=== PATIENT | female | born 1950 | race Caucasian/White ===

== ENCOUNTER 2021-02-08 01:44 | Emergency (ER) | payer OTHER ==
--- OUTSIDE RECORDS SUMMARY | 2021-02-08 01:47 | XMS REPORT | Continuity of Care Document ---
:1950 Author Organization [facility] t Address [address] [place] [address] Care Team Providers Name Role Phone Sanford Foster MD Primary Care Physician [phone] Cj Tenorio Attending Clinician Sanford Foster MD Attending Clinician [phone] Cuate SAUCEDA, L Attending Clinician Farnaz SAUCEDA Attending Clinician Payers Payer Name Policy Type Policy Effective Date Expiration Date Sour ce Number UHC MEDICAREUHC [id number] 2020 [place] TRS/HEALTHSELECT 00:00:00 Methodis t [id number] 2020-Present Problems Condition Condition Condition Status Onset Resolution Last Treating Co mments Source Name Details Category Date Date Treatment Clinician Date Abnormal Abnormal Disease Active [place] finding of finding of 10-05 Me thodi trunk trunk 00:00: st 00 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-05 Me thodi 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 00:00: st polyneurop polyneurop 00 athy athy Internal Internal Disease Active [place] hemorrhoid hemorrhoid 10-05 Me thodi s s 00:00: st 00 Rectal Rectal Disease Active [place] prolapse prolapse 10-05 Method i 00:00: st 00 Herniation Herniation Disease Active [place] of rectum of rectum 10-05 Meth selvin into into 00:00: st vagina vagina 00 Urgent Urgent Disease Active [place] desire for desire for 10-05 Me thodi stool stool 00:00: st 00 Postop Postop Disease Active [place] check check 10-05 Methodi 00:00: st 00 Bipolar I Problem Active 2021-01-10 Me moria disorder 01:02:30 l (disorder) Bipolar Her art I disorder (disorder) Active Problem 01/10/2021 [facility] Gastroesop Problem Active 2021-01-10 M emoria hageal 01:02:30 l reflux Nicholas disease Gastroesop (disorder) hageal reflux disease (disorder) Active Problem 01/10/2021 [facility] Hypothyroi Problem Active 2021-01-10 M emoria dism 01:02:30 l (disorder) [place] Hypothyroi dism (disorder) Active Problem 01/10/2021 [facility] Tremor Problem Active 2021-01-10 Memor ia (finding) 01:02:30 l Tremor Nicholas (finding) Active Problem 01/10/2021 [facility] Allergic Problem Resolve 2021-01-10 Me moria reaction d 01:02:30 l (disorder) Allergic He rmann reaction (disorder) Resolved Problem 01/10/2021 [facility] Backache Problem Active 2021-01-10 Mem oria (finding) 01:02:30 l Backache [place] n (finding) Active Problem 01/10/2021 [facility] Allergies, Adverse Reactions, Alerts Allergy Allergy Status Severity Reaction(s) Onset Inactive Treating Comm ents Source Name Type Date Date Clinician Georgette Bailey Active Causes [place] ne ty to 10-05 lethargy Methodi adverse 00:00: st reaction 00 s to drug gabapent gabapent Active Memori a in in l [place] Valium Valium Active Memoria l Nicholas Demerol Demerol Active Memoria l [place] Robituss Adverse Active cannot [facility] Reaction urinate [facility] Demerol Adverse Active sick, won't [facility] Reaction wake up [facility] Aleve Adverse Active GI Distress [facility] Reaction [facility] Advil Adverse Active GI Distress [facility] Reaction [facility] Lyrica Adverse Active severe [facility] Reaction sleepiness [facility] gabapent Adverse Active hallucinatio C [facility] ion Reaction ns [facility] Valium Adverse Active Info Not [facility] Reaction Available [facility] Family History Family Member Diagnosis Comments Start Date Stop Date Source Natural mother Heart attack [place]ondo[place] Natural mother Heart disease [place] Cheondoism Natural sister Lung cancer [facility] ethodist Natural brother Colon cancer [place] Natural father Anuerysm [facility] thodist Natural father Diabetes [facility]odist Natural father Heart disease [facility] Social History Social Habit Start Date Stop Date Quantity Comments Source Tobacco use and 2019-07-22 2019-07-22 Never used [facility] ethodist exposure 00:00:00 00:00:00 Alcohol intake 2019-07-22 2019-07-22 Current [facility] thodist 00:00:00 00:00:00 non-drinker of alcohol (finding) Sex Ass[birth year] [facility] ethodist 00:00:00 00:00:00 Smoking Status Start Date Stop Date Source Never smoker [facility] Medications Ordered Filled Start Stop Current Ordering Indication Dosage Frequency Signature Comments Components Source Medication Medication Date Date Medication? Clinician (SIG) Name Name tramadol Yes 0 Memoria hydrochlori 6-24 Refill(s) l de 50 MG 14:52: [place]ita Oral Tablet 00 escitalopra Yes 0 Memori a m 10 mg 6-24 Refill(s) l oral tablet 14:28: [place] 00 Trazodone Yes 0 Memoria Hydrochlori 6-24 Refill(s) l de 50 MG 14:28: Nicholas Oral Tablet 00 OLANZapine Yes 0 Memoria 7.5 mg oral 6-24 Refill(s) l tablet 14:28: [place]ita 00 Sodium Yes 0 Memoria Fluoride 6-24 Refill(s) l 0.011 MG/MG 14:28: [place] Toothpaste 00 [Prevident] 24 HR Yes 50 mg = 1 Memoria mirabegron 6-24 tab, PO, l 50 MG 14:28: Daily, # [place] Extended 00 30 tab, 0 Release Refill(s) Tablet [Myrbetriq] levothyroxi Yes 0 Memori a ne 50 mcg 6-24 Refill(s) l (0.05 mg) 14:28: [place] oral tablet 00 Famotidine Yes 0 Memoria 40 MG Oral 6-24 Refill(s) l Tablet 14:28: Anita 00 24 HR Yes 0 Memoria Divalproex 6-24 Refill(s) l Sodium 250 14:28: Anita MG Extended 00 Release Tablet Myrbetriq Yes Urge TAKE 1 [place] 50 mg 5-20 incontinenc TABLET BY [place] thodi tablet 00:00: e MOUTH st extended 00 DAILY release 24 hr mirabegron 2019- No Urge 50mg QD Take 1 [place] (MYRBETRIQ) 3-05 05-20 incontinenc tablet (50 Methodi 50 mg 00:00: 00:00 e mg total) st tablet 00 :00 by mouth extended daily. release 24 hr aspirin 2019-0 Yes 81mg QD Take 81 mg [place] (ECOTRIN) 06 by mouth Method i 81 MG 10:24: daily. st enteric 21 coated tablet OLANZapine 0 Yes 10mg QD Take 10 mg [place] (ZYPREXA) 06 by mouth Method i 10 MG 10:24: nightly. st tablet 21 benztropine 2020-0 Yes QD daily. [place] (COGENTIN) 07-22 Methodi 1 MG tablet 10:23: st 30 divalproex 2020-0 Yes QD nightly. Margaritamarta vegan (DEPAKOTE) 07-22 Methodi 250 MG 24 10:23: st hr tablet 30 fluticasone 2019-0 Yes 2{spray QD 2 sprays [place]on (FLONASE) 07-22 } into each Metho di 50 10:19: nostril st mcg/actuati 05 daily. on nasal spray ARIPiprazol 2019-0 Yes 1{tbl} QD Take 1 Ho ivette e (ABILIFY) 1 tablet by Met hodi 5 MG tablet 10:19: mouth st 05 daily. dexlansopra 2020-0 Yes 1{capsu QD Take 1 [place] zole 1-06 le} capsule by Methodi (DEXILANT) 10:19: mouth st 60 mg 05 daily. capsule escitalopra 2020-0 Yes 1{tbl} QD Take 1 [place] m (LEXAPRO) 1-06 tablet by Met hodi 20 MG 10:19: mouth st tablet 05 daily. levothyroxi 2020-0 Yes 1{tbl} QD Take 1 [place] ne 1-06 tablet by Methodi (SYNTHROID, 10:19: mouth st LEVOTHROID) 05 daily. 88 MCG tablet lithium 300 2020-0 Yes 2{capsu QD Take 2 [place] MG capsule 1-06 le} capsules Metho di 10:19: by mouth st 05 daily. traZODone 2020-0 Yes 1{tbl} QD Take 1 [place] (DESYREL) 1-06 tablet by Metho di 50 MG 10:19: mouth st tablet 05 daily. estradiol 2019-0 Yes Vaginal Apply 0.5 Jarquin (ESTRACE) 1-06 atrophy gram to Meth selvin 0.01 % (0.1 00:00: outer st mg/gram) 00 vagina vaginal three cream times/week at night omeprazole 2017-07 Yes Q.5D 2 (two) [place] (PriLOSEC) 2-26 times a Method i 40 MG 00:00: day. st capsule 00 Trazodone Trazodone 2016-0 Yes Stephani [address] [facility] HCl HCl 5-18 [place] at bedtime [facility] 00[facility]: as needed Memoria 00 [facility] ent Clinics cycloSPORIN 2015-07 Yes Q.5D 2 (two) Margarita ston E 1-28 times a Methodi (RESTASIS) 00:00: day. st 0.05 % 00 ophthalmic emulsion Olanzapine Olanzapine Yes Stephani [address] [facility] [place] [facility] Clinics Vital Signs Vital Name Observation Time Observation Value Comments Source Systolic (mm Hg) 2021-01-07 14:14:00 Elio Peterson Diastolic (mm Hg) 2021-01-07 14:14:00 [facility] jaciel Peterson Heart Rate 2021-01-07 14:14:00 [facility] Respitory Rate 2021-01-07 14:14:00 Viktoriya Argueta Height 2021-01-07 14:14:00 154.94 cm [facility] Weight 2021-01-07 14:14:00 [facility] BMI Calculated 2021-01-07 14:14:00 Viktoriya galeano Anita Procedures Procedure Date / Time Performed Performing Clinician Sourc e Spinal cord [facility] stimulation<sup>1</sup> Hysterectomy [facility] Tubal ligation [facility] Plan of Care Planned Activity Planned Date Details Comments Source Future Scheduled 2021-02-14 INFLUENZA VACCINE [facility] [facility] Test 00:00:00 [code = INFLUENZA VACCINE] Future Scheduled 2014 65+ PNEUMOCOCCAL Jarquin [facility]ism Test 00:00:00 VACCINE (1 of 1 - PPSV23) [code = 65+ PNEUMOCOCCAL VACCINE (1 of 1 - PPSV23)] Future Scheduled 1999-09-25 BREAST CANCER Jarquin [place] [facility]odist Test 00:00:00 SCREENING [code = BREAST CANCER SCREENING] Future Scheduled 1999-09-25 COLONOSCOPY SCREENING [place] Test 00:00:00 [code = COLONOSCOPY SCREENING] Future Scheduled 1999-09-25 SHINGLES VACCINES (#1) [place] Test 00:00:00 [code = SHINGLES VACCINES (#1)] Future Scheduled 1967-09-25 Hepatitis C screening [place] Test 00:00:00 (procedure) [code = 526156496] Future Scheduled 1961 COVID-19 VACCINE (1) Margarita ston [facility]ondoism Test 00:00:00 [code = COVID-19 VACCINE (1)] Encounters Start End Encounter Admission Attending Care Care Encounter Source Date/Time Date/Time Type Type Clinicians Facility Department ID 2021-01-26 2021-01-26 Outpatient [facility] [id number] 00:00:00 00[facility]00[facility] 2021-01-25 2021-01-25 Outpatient [facility] [id number] [facility] 00:00:00 00[facility]00[facility] 2021-01-07 2021-01-07 Outpatient STEVE Tenorio [facility] [place] [id number] 09:30:00 23:59:59 Brigido Corona 2020-12-03 2020-12-03 Outpatient [facility] [id number] [facility] 2020-12-02 2020-12-02 Out[facility] [id number] [facility] 2020-12-02 2020-12-02 Out[facility] [id number] [facility] 2020-10-12 2020-10-12 Outpatient [facility] [id number] [facility] 2020-07-21 2020-07-21 [facility] [place], [facility] [id number] 00:00:00 00:00:00 [facility] [id number] Surgical [id number] [facility]ly [facility] [id number] [address] 2020-06-18 2020-06-18 Outpatient [facility] [id number] [facility] 2020-05-29 2020-05-29 Office Yoon Osei [facility] [id number] 13:53:33 14:23:33 Visit Health [id number] Cancer [id number] [facility] [id number] [facility] 408 2020-05-01 2020-05-01 Outpatient [facility] [id number] [facility] 2020-03-30 2020-03-30 [facility] [id number] [facility] 13:06:00 13:06:00 [facility] Medicine l Medicine Outpati ent Clinics 2020-03-30 2020-03-30 [facility] [id number] 10:00:00 10:00:00 [facility] Medicine l Medicine Outpati ent Clinics 2020-03-25 2020-03-25 [facility] [id number] 10:00:00 10:00:[address] [facility] Medicine Medicine Outpati ent Clinics 2020-02-26 2020-02-26 [facility] [id number] 09:40:00 09:40:00 t [facility] Medicine Outpati ent Clinics 2020-02-20 2020-02-20 [facility] [id number] 08:40:00 08:40:[address] [facility] Medicine l Medicine Outpati ent Clinics 2020-01-16 2020-01-16 [facility] [id number] 16:20:00 16:20:00 [facility] Medicine Outpati ent Clinics 2019-12-23 2019-12-23 [facility] [id number] 14:03:00 14:03:[address] [facility] Medicine l Medicine Outpati ent Clinics 2019-11-20 2019-11-20 [facility] [id number] 10[facility]40:00 10:40:00 t [facility] Medicine Outpati ent Clinics 2019-04-12 2019-04-12 [facility] [id number] 08:40:00 08:40:[address] [facility] Medicine Medicine Outpati ent Clinics 2019-04-01 2019-04-01 [facility] [id number] 13:13:00 13:13:[address] [facility] Medicine l Medicine Outpati ent Clinics 2019-03-27 2019-03-27 [facility] [id number] [facility] 16:30:00 16:30:00 t [facility] Medicine Outpati ent Clinics 2019-03-19 2019-03-19 [facility] [id number] 13:35:00 13:35:00 t [facility] Medicine Outpati ent Clinics 2019-03-15 2019-03-15 [facility] [id number] 16[facility]10:00 16:10:00 t [facility] Medicine Outpati ent Clinics 2019-03-11 2019-03-11 [facility] [id number] 08[facility]23:00 08:23:00 t [facility] Medicine Outpati ent Clinics 2019-01-31 2019-01-31 [facility] [id number] 15:49:00 15:49:00 t [facility] Medicine Outpati ent Clinics 2019-01-30 2019-01-30 [facility] [id number] 08:40:00 08:40:00 t [facility] Medicine Outpati ent Clinics 2019-01-14 2019-01-14 [facility] [id number] 08:40:00 08:40:00 t [facility] Medicine Outpati ent Clinics 2018-11-20 2018-11-20 [facility] [id number] 13:30:00 13:30:00 t [facility] Medicine Outpati ent Clinics 2018-08-27 2018-08-27 [facility] [id number] 09:30:00 09:30:00 t [facility] Medicine Outpati ent Clinics 2018-04-23 2018-04-23 [facility] [id number] 08:30:00 08:30:00 t [facility] Medicine Outpati ent Clinics 2018-04-10 2018-04-10 [facility] [id number] 11:30:00 11:30:00 t [facility] Medicine Outpati ent Clinics 2018-04-02 2018-04-02 [facility] [id number] [facility] [facility] 14:12:00 14:12:00 t [facility] Medicine Outpati ent Clinics 2018-04-02 2018-04-02 Outpatient Preeti Thornton [id number] 10:55:00 10:55:00 t Specialty/[facility] - Specialty rology [facility] /Urology Clinic l Clinic Outpati ent Clinics 2018-03-30 2018-03-30 Outpatient Preeti Thornton [id number] 16:34:00 16:34:00 t Specialty/U [facility] - Specialty rology Memori a /Urology Clinic l Clinic Outpati ent Clinics 2018-03-29 2018-03-29 Outpatient Preeti Thornton [id number] [facility] 14:40:00 14:40:00 t [facility] Medicine Outpati ent Clinics 2017-12-14 2017-12-14 Outpatient Preeti Thornton [id number] 10:00:00 10:00:00 [facility] Clinic l Outpati ent Clinics Results This patient has no known results.
[2021-02-08 03:48] LABS: Urine Blood Negative (Negative); Urine Glucose Negative (Negative); Urine Protein Negative (Negative); Urine pH 5.5 (5.0-7.0)
[2021-02-08 04:06] LABS: Protime INR 0.89
[2021-02-08 04:12] LABS: Absolute Lymphocytes (CBC) 3.1 K/uL (0.7-4.9); Basophils % 0.1 % (0-1.3); Hematocrit 37.8 % (36.0-45.0); Lymphocytes % 41.1 % (15.3-44.8); MPV 8.8 fL (7.6-11.3)
[2021-02-08 04:19] LABS: ALT/SGPT 25 U/L (12-78); AST/SGOT 21 U/L (15-37); Albumin 3.6 g/dL (3.4-5.0); Alkaline Phosphatase 91 U/L (45-117); BUN Blood Urea Nitrogen 30 mg/dL (7-18); Bicarbonate 27 mmol/L (21-32); Bilirubin Direct < 0.1 mg/dL (0-0.2); Bilirubin Total 0.2 mg/dL (0.2-1.0); Glucose Level 90 mg/dL (74-106); Lipase 99 U/L (73-393); Magnesium 2.1 mg/dL (1.8-2.4); NT PRO-BNP 83 pg/mL (<125); Potassium 3.8 mmol/L (3.5-5.1); Protein, Total 7.3 g/dL (6.4-8.2); Sodium Level 142 mmol/L (136-145); Troponin (Emerg Dept Use Only) < 0.02 ng/mL (0.0-0.045)
[2021-02-08] MEDS ORDERED: NA CHLORIDE 0.9% 1,000 ML ONE (05:10)
--- NOTE | 2021-02-08 08:45 | RAD REPORT ---
EXAM DESCRIPTION: RAD - Chest Single View - 02/08/2021 2:36 am CLINICAL HISTORY: CHEST PAIN Chest pain. COMPARISON: Chest Pa And Lat (2 Views) dated 11/07/2017; Chest Single View dated 01/06/2017; CHEST SIN GLE VIEW dated 09/17/2011; CHEST SINGLE VIEW dated 04/26/2011 FINDINGS: Portable technique limits examination quality. The lungs are mildly emphysematous but grossly clear. The heart is normal in size. No displaced fract ures.Cervical hardware plate. IMPRESSION: Mild diffuse COPD.
--- NOTE | 2021-02-08 09:59 | RAD REPORT ---
EXAM DESCRIPTION: CTA Chest, Pulmonary Embolus Protocol COMPARISON: None. CLINICAL HISTORY: [facility] MAIN Pain;SOB TECHNIQUE: CT images through the chest with IV contrast using the pulmonary embolus protocol. Multip lanar reformats. Automated exposure control was utilized on this examination as a dose lowering liset hnique. FINDINGS: Pulmonary arteries and vascular: Diagnostic quality bolus. No filling defects. Heart and mediastinum: Heart size is normal. No lymphadenopathy. Thyroid gland: Visualized portions are normal. Lungs: Right lower lobe atelectasis is noted. Airways: No filling defects. No bronchiectasis. Pleura: No pneumothorax. No significant pleural effusion. Subphrenic structures: There is diffuse esophageal wall thickening. Musculoskeletal and soft tissues: Within normal limits for age. IMPRESSION: 1. No evidence of pulmonary embolus 2. Diffuse esophageal wall thickening is consistent with esophagitis and less likely neoplasm. Electronically signed by: Douglas Odonnell MD 02/08/2021 5:59 AM CDT Due to temporary technical issues with the PACS/Fluency reporting system, reports are being signed by the in house radiologist without review as a courtesy to ensure prompt reporting. The interpreting r adiologist is fully responsible for the content of the report.
--- NOTE | 2021-02-08 10:01 | RAD REPORT ---
EXAM DESCRIPTION: CT Abdomen and Pelvis With Intravenous Contrast CLINICAL HISTORY: Abd pain;Flank pain TECHNIQUE: Axial computed tomography images of the abdomen and pelvis with intravenous contrast. S agittal and coronal reformatted images were created and reviewed. This CT exam was performed using one or more of the following dose reduction techniques: automated exposure control, adjustment of t he mA and/or kV according to patient size, and/or use of iterative reconstruction technique. COMPARISON: No relevant prior studies available. FINDINGS: Limitations: None. Lung bases: No abnormality noted. Pleural space: No abnormality noted. Heart: No abnormality noted. Mediastinum: There is circumferential distal esophageal thickening. ABDOMEN: Liver: Trace intrahepatic biliary dilatation noted. Gallbladder and bile ducts: See above. Pancreas: Homogeneous enhancement. No mass, inflammation or ductal dilation. Spleen: No abnormality noted. Adrenals: Visualized portions appear normal. Kidneys and ureters: There are multiple hypodense nodules in each kidney there is a single indet erminate approximate 8 mm bilateral hypodensity. Stomach and bowel: Moderate amounts of stool throughout the colon. No obstruction or inflammat ion. There is a small transverse duodenal diverticulum. PELVIS: Appendix: Appendix not seen. No pericecal inflammation. Bladder: No filling defects to suggest mass or large stone. No inflammation. Reproductive: Hysterectomy. ABDOMEN and PELVIS: Intraperitoneal space: No free air. No significant fluid collection. Bones/joints: Degenerative changes present in the lumbar spine. Soft tissues: No abnormality noted. Vasculature: No abdominal aortic aneurysm. Lymph nodes: No pathologically enlarged lymph nodes. IMPRESSION: 1. The distal esophageal thickening most concerning for esophagitis. 2. Moderate to large amounts of stool throughout the colon without obstruction or inflammation. 3. Indeterminant hypodense nodules in each kidney presumably hyperdense cysts. Nonemergent renal sonography recommended to confirm. Electronically signed by: Gina Pulido MD 02/08/2021 5:47 AM CDT Due to temporary technical issues with the PACS/Fluency reporting system, reports are being signed by the in house radiologist without review as a courtesy to ensure prompt reporting. The interpreting r adiologist is fully responsible for the content of the report.
--- NOTE | 2021-02-09 17:08 | ER ---
Nurse's Notes [facility] Name: Elyssa Olivo Age: 70 yrs Sex: Female : 1950 Arrival Date: 02/08/2021 Time: 01:46 Bed 8 Private MD: Diagnosis: Back Pain;Abdominal Pain;Constipation;Esophagitis Presentation: 02/08 02:00 Chief complaint: EMS states: Called for patient having right anterior chest pain that lp1 began 1 hour ago; Reports pain began right before going to bed tonight, some shortness of breath. 02:00 Coronavirus screen: Client denies travel out of the [place] in the last 14 days. At this lp1 time, the client does not indicate any symptoms associated with coronavirus-19. Ebola Screen: No symptoms or risks identified at this time. Initial Sepsis Screen: Does the patient meet any 2 criteria? No. Patient's initial sepsis screen is negative. Does the patient have a suspected source of infection? No. Patient's initial sepsis screen is negative. Risk Assessment: Do you want to hurt yourself or someone else? Patient reports no desire to harm self or others. Onset of symptoms was February 08, 2021 at 01:00. 02:00 Method Of Arrival: EMS: [facility] lp1 02:00 Acuity: PRIMO 3 lp1 Historical: - Allergies: 03:49 Demerol; lp1 02:30 GABAPENTIN; lp1 02:30 Valium; lp1 - Home Meds: 02:30 Pepcid Oral [Active]; fluticasone propionate inhalation [Active]; levothyroxine 50 mcg lp1 tab 1 tab once daily [Active]; Myrbetriq oral [Active]; olanzapine oral [Active]; Omeprazole Oral [Active]; trazodone 50 mg Oral tab [Active]; - PMHx: 03:49 Bipolar disorder; GERD; Hypothyroidism; lp1 02:30 back pain; lp1 - PSHx: 02:30 hysterectomy; lp1 - Immunization history:: Adult Immunizations up to date. - Social history:: Smoking status: Patient denies any tobacco usage or history of. Screenin:48 Abuse screen: Denies threats or abuse. Denies injuries from another. Nutritional lp1 screening: No deficits noted. Tuberculosis screening: No symptoms or risk factors identified. Fall Risk Total Alcantara Fall Scale indicates High Risk Score (45 or more points). Fall prevention measures have been instituted. Side Rails Up X 2 Frequent Obs/Assessments Occuring. Assessment: 02:15 General: Appears in no apparent distress. Behavior is calm, cooperative, appropriate lp1 for age. Pain: Complains of pain in anterior aspect of right upper chest Pain radiates to right upper back Pain currently is 2 out of 10 on a pain scale. Quality of pain is described as sharp. Neuro: Level of Consciousness is awake, alert, obeys commands, Oriented to person, place, time, situation. Cardiovascular: Patient's skin is warm and dry. Respiratory: Respiratory effort is even, unlabored, Breath sounds are clear bilaterally. GI: Abdomen is non-distended. : No signs and/or symptoms were reported regarding the genitourinary system. EENT: No signs and/or symptoms were reported regarding the EENT system. Derm: Skin is pink, warm \\T\\ dry. Musculoskeletal: No deficits noted. 03:48 Reassessment: Patient denies pain at this time; Reports "I'm a little sleepy since I lp1 took my night meds". 04:59 Reassessment: Patient appears in no apparent distress at this time. Patient and/or lp1 family updated on plan of care and expected duration. Pain level reassessed. Patient resting, eyes closed, respiratione even, unlabored Patient denies pain at this time. 06:00 Reassessment: Patient appears in no apparent distress at this time. Patient and/or lp1 family updated on plan of care and expected duration. Pain level reassessed. Patient denies any needs at this time. Vital Signs: 02:00 BP 121 / 77; Pulse 63; Resp 18; Temp 97.9; Pulse Ox 99% on R/A; Weight 73.48 kg (R); lp1 Height 5 ft. 2 in. (157.48 cm); Pain 0/10; 02:30 BP 111 / 62; Pulse 61; Resp 15; Pulse Ox 96% on R/A; lp1 03:30 BP 114 / 75; Pulse 66; Resp 20; Pulse Ox 96% on R/A; lp1 04:02 BP 107 / 78; Pulse 66; Resp 15; Pulse Ox 95% on R/A; lp1 04:59 BP 123 / 78; Pulse 62; Resp 20; Pulse Ox 95% on R/A; lp1 06:15 BP 114 / 81; Pulse 53; Resp 13; Pulse Ox 100% on R/A; lp1 07:00 BP 116 / 70; Pulse 50; Resp 12; Pulse Ox 99% on R/A; lp1 02:00 Body Mass Index 29.63 (73.48 kg, 157.48 cm) lp1 ED Course: 01:46 Patient arrived in ED. la1 01:46 Lonny Ellis MD is Attending Physician. mh7 02:09 Aline Abbott, LORENZA is Primary Nurse. lp1 02:30 Patient has correct armband on for positive identification. Bed in low position. Call lp1 light in reach. monitoring manager on. Pulse ox on. NIBP on. 02:30 Arm band placed on. lp1 02:35 XRAY Chest (1 view) In Process Unspecified. EDMS 03:00 Missed attempt(s): 20 gauge in left antecubital area. Bleeding controlled, band aid tt3 applied, catheter tip intact. 03:40 Inserted saline lock: 20 gauge in left antecubital area, using aseptic technique. Blood lp1 collected. 04:54 Triage completed. lp1 05:28 CT Chest For PE Angio In Process Unspecified. EDMS 05:28 CT Abd/Pelvis - IV Contrast Only In Process Unspecified. EDMS 06:43 Logan Morley MD is Referral Physician. mh7 07:24 No provider procedures requiring assistance completed. IV discontinued, No lp1 redness/swelling at site. Pressure dressing applied. Administered Medications: 05:20 Drug: NS 0.9% 1000 ml Route: IV; Rate: 1000 ml; Site: left antecubital; lp1 06:30 Follow up: IV Status: Completed infusion; IV Intake: 1000ml lp1 Intake: 06:30 IV: 1000ml; Total: 1000ml. lp1 Outcome: 06:44 Discharge ordered by . mh7 07:25 Discharged to home via wheelchair, with friend. lp1 07:25 Condition: good 07:25 Discharge instructions given to patient, Instructed on discharge instructions, follow up and referral plans. medication usage, Demonstrated understanding of instructions, follow-up care, medications, Prescriptions given X 2. 07:25 Patient left the ED. lp1 Signatures: Dispatcher [employer] EDAline Gardner RN RN lp1 Jodran Sanders, FAMILY SERVICES WORKER-C FAMILY SERVICES WORKER-Cla1 Lonny Ellis MD MD 7 Kole Fernandez tt3 Corrections: (The following items were deleted from the chart) 03:46 03:46 Missed attempt(s): 20 gauge in left antecubital area. tt3 tt3 03:47 03:00 Missed attempt(s): 20 gauge in left antecubital area. tt3 tt3
--- NOTE | 2021-02-09 17:08 | EDPHYS ---
Physician Documentation [facility] Name: Elyssa Olivo Age: 70 yrs Sex: Female : 1950 Arrival Date: 02/08/2021 Time: 01:46 Bed 8 Private MD: ED Physician Lonny Ellis HPI: 02/08 02:00 This 70 yrs old Female presents to ER via Unassigned with complaints of Back mh7 Pain. 02:00 The patient presents with pain that is acute, with no known mechanism of injury. The mh7 symptoms are located in the right subscapular area and right flank. Onset: The symptoms/episode began/occurred just prior to arrival, today. The pain radiates to the Right upper abdomen. 02:00 Associated signs and symptoms: Pertinent positives: abdominal pain, chest pain, mh7 Pertinent negatives: constipation, dysuria, fever, headache, hematuria, incontinence, nausea, numbness, tingling, urinary retention, vomiting, weakness. The problem was sustained from unknown cause. Modifying factors: The patient symptoms are alleviated by nothing, the patient symptoms are aggravated by movement, Touching the area. Severity of symptoms: At their worst the symptoms were moderate, earlier today, in the emergency department the symptoms have improved, moderately. Historical: - Allergies: 03:49 Demerol; lp1 02:30 GABAPENTIN; lp1 02:30 Valium; lp1 - Home Meds: 02:30 Pepcid Oral [Active]; fluticasone propionate inhalation [Active]; levothyroxine 50 mcg lp1 tab 1 tab once daily [Active]; Myrbetriq oral [Active]; olanzapine oral [Active]; Omeprazole Oral [Active]; trazodone 50 mg Oral tab [Active]; - PMHx: 03:49 Bipolar disorder; GERD; Hypothyroidism; lp1 02:30 back pain; lp1 - PSHx: 02:30 hysterectomy; lp1 - Immunization history:: Adult Immunizations up to date. - Social history:: Smoking status: Patient denies any tobacco usage or history of. ROS: 02:00 Constitutional: Negative for fever, chills, and weight loss, Eyes: Negative for injury, mh7 pain, redness, and discharge, ENT: Negative for injury, pain, and discharge, Neck: Negative for injury, pain, and swelling, Respiratory: Negative for shortness of breath, cough, wheezing, and pleuritic chest pain, : Negative for injury, bleeding, discharge, and swelling, MS/Extremity: Negative for injury and deformity, Skin: Negative for injury, rash, and discoloration, Neuro: Negative for headache, weakness, numbness, tingling, and seizure, Psych: Negative for depression, anxiety, suicide ideation, homicidal ideation, and hallucinations, Allergy/Immunology: Negative for hives, rash, and allergies, Endocrine: Negative for neck swelling, polydipsia, polyuria, polyphagia, and marked weight changes, Hematologic/Lymphatic: Negative for swollen nodes, abnormal bleeding, and unusual bruising. Exam: 02:00 Constitutional: This is a well developed, well nourished patient who is awake, alert, mh7 and in no acute distress. Head/Face: Normocephalic, atraumatic. Eyes: Pupils equal round and reactive to light, extra-ocular motions intact. Lids and lashes normal. Conjunctiva and sclera are non-icteric and not injected. Cornea within normal limits. Periorbital areas with no swelling, redness, or edema. Neck: Trachea midline, no thyromegaly or masses palpated, and no cervical lymphadenopathy. Supple, full range of motion without nuchal rigidity, or vertebral point tenderness. No Meningismus. 02:00 Cardiovascular: Regular rate and rhythm with a normal S1 and S2. No gallops, murmurs, or rubs. Normal PMI, no JVD. No pulse deficits. Respiratory: Lungs have equal breath sounds bilaterally, clear to auscultation and percussion. No rales, rhonchi or wheezes noted. No increased work of breathing, no retractions or nasal flaring. Abdomen/GI: Soft, non-tender, with normal bowel sounds. No distension or tympany. No guarding or rebound. No evidence of tenderness throughout. 02:00 Skin: Warm, dry with normal turgor. Normal color with no rashes, no lesions, and no evidence of cellulitis. MS/ Extremity: Pulses equal, no cyanosis. Neurovascular intact. Full, normal range of motion. Neuro: Awake and alert, GCS 15, oriented to person, place, time, and situation. Cranial nerves II-XII grossly intact. Motor strength 5/5 in all extremities. Sensory grossly intact. Cerebellar exam normal. Normal gait. Psych: Awake, alert, with orientation to person, place and time. Behavior, mood, and affect are within normal limits. 02:00 Chest/axilla: Inspection: normal, Palpation: tenderness, that is moderate, of the anterior aspect of right upper chest and right flank and right subscapular area, that totally reproduces the patient's complaints, Axilla: are normal, Lymph nodes: lymphadenopathy is not appreciated. 02:00 Back: pain, that is moderate, of the right flank, ROM is painful, with flexion, normal spinal alignment noted, CVA tenderness, that is moderate, is noted on the right, vertebral tenderness, is not appreciated, muscle spasm, is not present. Vital Signs: 02:00 BP 121 / 77; Pulse 63; Resp 18; Temp 97.9; Pulse Ox 99% on R/A; Weight 73.48 kg (R); lp1 Height 5 ft. 2 in. (157.48 cm); Pain 0/10; 02:30 BP 111 / 62; Pulse 61; Resp 15; Pulse Ox 96% on R/A; lp1 03:30 BP 114 / 75; Pulse 66; Resp 20; Pulse Ox 96% on R/A; lp1 04:02 BP 107 / 78; Pulse 66; Resp 15; Pulse Ox 95% on R/A; lp1 04:59 BP 123 / 78; Pulse 62; Resp 20; Pulse Ox 95% on R/A; lp1 06:15 BP 114 / 81; Pulse 53; Resp 13; Pulse Ox 100% on R/A; lp1 07:00 BP 116 / 70; Pulse 50; Resp 12; Pulse Ox 99% on R/A; lp1 02:00 Body Mass Index 29.63 (73.48 kg, 157.48 cm) lp1 MDM: 06:39 Differential diagnosis: chronic back pain, Osteoarthritis Peptic Ulcer Perforated Ulcer mh7 Pyelonephritis Abdominal Pain. Data reviewed: vital signs, nurses notes, old medical records, lab test result(s), amylase and lipase, cardiac enzymes, CBC, electrolytes, urinalysis, EKG, radiologic studies, CT scan, plain films. Data interpreted: Pulse oximetry: on room air is 97 %. Interpretation: normal. Counseling: I had a detailed discussion with the patient and/or guardian regarding: the historical points, exam findings, and any diagnostic results supporting the discharge/admit diagnosis, lab results, radiology results, the need for outpatient follow up, to return to the emergency department if symptoms worsen or persist or if there are any questions or concerns that arise at home. Response to treatment: the patient's symptoms have resolved after treatment, the patient's blood pressure is in an acceptable range, mental status has returned to baseline, the patient no longer shows bradycardia, the patient is not short of breath, the patient is not tachycardic, the patient's pain is gone, the patient's temperature has normalized, the patient is now symptom free, patient is well hydrated. 06:44 Patient medically screened. 02/08 02:06 Order name: Basic Metabolic Panel; Complete Time: 04:23 [facility] 02/08 02:06 Order name: CBC with Diff; Complete Time: 04:23 02/08 02:06 Order name: LFT's; Complete Time: 04:23 [facility] 02/08 02:06 Order name: Magnesium; Complete Time: 04:23 02/08 02:06 Order name: NT PRO-BNP; Complete Time: 04:23 02/08 02:06 Order name: PT-INR; Complete Time: 04:23 [facility] 02/08 02:06 Order name: Troponin (emerg Dept Use Only); Complete Time: 04:23 02/08 02:06 Order name: XRAY Chest (1 view) 02/08 02:06 Order name: Lipase; Complete Time: 04:23 [facility] 02/08 03:48 Order name: Urine Dipstick-Ancillary; Complete Time: 04:08 [facility] 02/08 04:25 Order name: CT Chest For PE Angio 02/08 04:25 Order name: CT Abd/Pelvis - IV Contrast Only 02/08 02:06 Order name: EKG; Complete Time: 02:07 [facility] 02/08 02:06 Order name: Cardiac monitoring; Complete Time: 02:10 02/08 02:06 Order name: EKG - Nurse/Tech; Complete Time: 02:10 02/08 02:06 Order name: IV Saline Lock; Complete Time: 03:48 02/08 02:06 Order name: Labs collected and sent; Complete Time: 03:48 [facility] 02/08 02:06 Order name: O2 Per Protocol; Complete Time: 02:10 [facility] 02/08 02:06 Order name: O2 Sat Monitoring; Complete Time: 02:10 [facility] 02/08 02:06 Order name: Urine Dipstick-Ancillary (obtain specimen); Complete Time: 03:48 [facility] Administered Medications: 05:20 Drug: NS 0.9% 1000 ml Route: IV; Rate: 1000 ml; Site: left antecubital; lp1 06:30 Follow up: IV Status: Completed infusion; IV Intake: 1000ml lp1 Disposition Summary: 02/08/21 06:44 Discharge Ordered Location: Home [facility] Problem: an acute exacerbation [facility] Symptoms: have improved [facility] Condition: Stable [facility] Diagnosis - Back Pain [facility] - Abdominal Pain [facility] - Constipation [facility] - Esophagitis [facility] Followup: [facility] - With: Private Physician - When: 1 - 2 days - Reason: Worsening of condition, Recheck today's complaints, Continuance of care, Re-evaluation by your physician Followup: [facility] - With: Lgoan Morley MD - When: 1 - 2 days - Reason: Worsening of condition, Recheck today's complaints, Continuance of care, Re-evaluation by your physician Discharge Instructions: - Discharge Summary Sheet [facility] - Esophagitis [facility] - Constipation, Adult, [id number] [facility] - Abdominal Pain, Adult, [id number] [facility] - Chronic Back Pain, [id number] [facility] Forms: - Medication Reconciliation Form [facility] - Thank You Letter [facility] - Antibiotic Education [facility] - Prescription Opioid Use [facility] Prescriptions: - Pepcid 20 mg Oral Tablet - take 1 tablet by ORAL route every 12 hours for 10 days; 20 tablet; Refills: 0, [facility] Product Selection Permitted - Lactulose 10 gram/15 mL Oral Solution - take 30 milliliters by ORAL route once daily As needed; 150 milliliter; [facility] Refills: 0, Product Selection Permitted Signatures: Dispatcher [employer] Aline Mendes RN RN lp1 Lonny Ellis MD MD [facility]
[2021-02-10 04:20] VITALS: TEMP 97.9
[2021-02-10 04:32] VITALS: BP 116/70; O2SAT 99
== END 2021-02-08 07:25 | disposition home or self-care (01) ==
LOC: ER 01:44
DX: K59.00 Constipation, unspecified (principal); K20.90 Esophagitis, unspecified without bleeding; M54.9 Dorsalgia, unspecified; E03.9 Hypothyroidism, unspecified; F31.9 Bipolar disorder, unspecified; Z88.5 Allergy status to narcotic agent; Z88.8 Allergy status to other drugs, medicaments and biological substances
CPT/HCPCS: 93005; 85025; 80048; 36415; 83735; 85610; 80076; 81003; 84484; 83690; 83880; 71275; 74177; 71045; Q9967; J7030

== ENCOUNTER 2022-04-03 12:03 | Emergency (ER) | payer OTHER ==
--- OUTSIDE RECORDS SUMMARY | 2022-04-03 12:09 | XMS REPORT | Continuity of Care Document ---
:1950 Author Organization [facility] t Address [address] [place] [address] Care Team Providers Name Role Phone ISMAEL MCGINNIS Primary Care Physician Unavailable Stephani Ivan Attending Clinician Unavailable Kristin SAUCEDA, Martina Nicole Attending Clinician Lino Vale RN Attending Clinician Unavailable Brigido Tenorio Attending Clinician Sami Goldman MD Attending Clinician Simon Pham MD Attending Clinician SIMON PHAM Attending Clinician Unavailable LOLY BHARDWAJ Attending Clinician Unavailable Doctor Unassigned, [place] Attending Clinician Unavailable SAMI GOLDMAN Attending Clinician Unavailable Sharon Taylor Attending Clinician SHARON ONEAL Attending Clinician Unavailable Payers Payer Name Policy Type Policy Number Effective Date Expiration Date S ysabel MEDICARE PART A [id number] 2006 \T\ B 00:00:00 Problems Condition Condition Condition Status Onset Resolution Last Treating Co mments Source Name Details Category Date Date Treatment Clinician Date Right knee Right knee Disease Active U nivers pain pain 1-05 ity of 00:00: [place] 00 [facility] Branch Abnormal Abnormal Disease Active Metho di finding of finding of 10-05 trunk trunk 00:00: Hospita 00 l 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-05 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 00:00: Hospita polyneurop polyneurop 00 l elvie athdonald 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 hemorrhoid 10-05 st s s 00:00: Hospita 00 l Rectal Rectal Disease Active Methodi prolapse prolapse 10-05 st 00:00: Hospita 00 l Herniation Herniation Disease Active M ethodi of rectum of rectum 10-05 into into 00:00: Hospita vagina vagina 00 l Urgent Urgent Disease Active Methodi desire for desire for 10-05 stool stool 00:00: Hospita 00 l Postop Postop Disease Active Methodi check check 10-05 00:00: Hospita 00 l Allergic Allergic Problem Resolve 2021-11-27 Memoria reaction reaction d 04:00:20 l (disorder) (disorder) He rmann Resolved Problem 11/27/2021 [facility] Backache Backache Problem Active 2021-11-27 Memoria (finding) (finding) 04:00:20 l Active Nicholas Problem 11/27/2021 [facility] Bipolar I Bipolar I Problem Active 2021-11-27 Memoria disorder disorder 04:00:20 l (disorder) (disorder) He rmann Active Problem 11/27/2021 [facility] Gastroesop Problem Active 2021-11-27 M emoria hageal Gastroesop 04:00:20 l reflux hageal Nicholas disease reflux (disorder) disease (disorder) Active Problem 11/27/2021 [facility] Hypothyroi Hypothyro Problem Active 2021-11-27 Memoria dism idism 04:00:20 l (disorder) (disorder) He rmann Active Problem 11/27/2021 [facility] Tremor Tremor Problem Active 2021-11-27 Elio sue (finding) (finding) 04:00:20 l Active Nicholas Problem 11/27/2021 [facility] 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 04:00:20 l (disorder) (disorder) He rmann Active Problem 11/27/2021 [facility] Allergies, Adverse Reactions, Alerts Allergy Allergy Status Severity Reaction(s) Onset Inactive Treating Comm ents Source Name Type Date Date Clinician Gabapent Propensi Active Unknown - 2019-07 Uni vers in ty to See comments 07-29 ity of adverse 00:00: [place] reaction 00 Medical s Branch GABAPENT DRUG Active Unknown-Cmnt 2019-07 Un paresh IN INGREDI 07-29 ity of 00:00: [place] 00 Medical Branch Diazepam Propensi Active Nausea 2019-07 Univer s ty to and/or ity of adverse Vomiting 00:00: [place] reaction 00 Medical s Branch DIAZEPAM DRUG Active N/V 2019-07 Univers INGREDI 0 ity of 00:00: [place] 00 Medical Branch Meperidi Propensi Active Causes Method i ne ty to 10-[address] adverse 00:00: Hospita reaction 00 l s to drug Meperidi Propensi Active Other - See 2014-07 Causes U nivers ne ty to comments 07-22 lethargyP ity o f adverse 00:00: atient [place] reaction 00 states Medical s that it Branch puts her out, makes her to sleepy MEPERIDI DRUG Active High Other-Cmnt 2014-07 Univ ers NE INGREDI 07-22 ity of 00:00: [place] 00 Medical Branch Robituss Adverse Active cannot Common in Reaction urinate Spirit Cold/Con - [facility] gestion [facility] Demerol Adverse Active sick, won't Com mon Reaction wake up [facility] Aleve Adverse Active GI Distress Comm on Reaction [facility] Advil Adverse Active GI Distress Comm on Reaction [facility] Lyrica Adverse Active severe Common Reaction sleepiness Spir [facility] gabapent Adverse Active hallucinatio C ommon ion Reaction ns [facility] Valium Adverse Active Info Not Common Reaction Available Spiri [facility] gabapent gabapent Active Memori a in in l [place] Valium Valium Active Memoria l [place] Demerol Demerol Active Memoria michelle Peterson Family History Family Member Diagnosis Comments Start Date Stop Date Source Natural father Heart disease [facility] Natural father Anuerysm [facility] [place] [facility] Natural father Diabetes [facility] [place] [facility] Natural mother Heart attack [facility] Natural mother Heart disease [facility] Natural sister Lung cancer [facility] [place] [facility] Natural brother Colon cancer [facility] Social History Social Habit Start Date Stop Date Quantity Comments Source Exposure to Not sure University of SARS-CoV-2 [facility] (event) Branch Tobacco use and 2020-05-29 2020-05-29 Never used Universit y of exposure 00:00:00 00:00:00 [facility] Alcohol intake 2019-07-22 2019-07-22 Current [facility] [place] [facility] 00:00:00 00:00:00 non-drinker of alcohol (finding) Sex [birth year] [facility] [place] [facility] 00:00:00 00:00:00 Smoking Status Start Date Stop Date Source Social History [facility] Medications Ordered Filled Start Stop Current Ordering Indication Dosage Frequency Signature Comments Components Source Medication Medication Date Date Medication? Clinician (SIG) Name Name Dejuan Yes [id number] TAKE 1 Me thodi 50 mg 3-[address] tablet 00:00: MOUTH Hospita extended 00 DAILY l release 24 hr amantadine Yes 100 mg = 1 M emoria 100 mg oral 2-11 tab, PO, l tablet 17:07: BID, X 90 [place] n 00 day, # 180 tab, 3 Refill(s), Pharmacy: [facility], 154.94, cm, 08/27/21 10:51:00 [employer], Height, 78.636, kg, 08/27/21 10:51:00 [employer], Weight amantadine 2020-07 Yes 100 mg = 1 M emoria 100 mg oral 1-09 tab, PO, l tablet 18:13: Daily, X Nicholas day, # 90 tab, 3 Refill(s), Pharmacy: [facility], 154.94, cm, 05/25/21 11:54:00 [employer], Height, 77.273, kg, 05/25/21 11:54:00 [employer], Weight amantadine Yes 100 mg = 1 M emoria 100 mg oral 9-01 tab, PO, l tablet 20:21: Daily, X Nicholas 90 day, # 90 tab, 3 Refill(s), Pharmacy: [facility] #[id number], 152.4, cm, 02/11/21 11:19:00 CDT, Height, 76.364, kg, 02/11/21 11:19:00 CDT, Weight amantadine No 100 mg = 1 M emoria 100 mg oral 8-31 tab, PO, l tablet 22:41: Daily, X Nicholas 00 30 day, # 30 tab, 2 Refill(s), Pharmacy: [facility] #[id number], 152.4, cm, 02/11/21 11:19:00 CDT, Height, 76.364, kg, 02/11/21 11:19:00 CDT, Weight deutetraben Yes 9 mg = 1 Me moria azine 9 MG 7-29 tab, PO, l Oral Tablet 16:59: BID, # 60 H ermann [Austedo] 00 tab, 2 Refill(s), Pharmacy: [facility] #[id number], 152.4, cm, 02/11/21 11:19:00 CDT, Height, 76.364, kg, 02/11/21 11:19:00 CDT, Weight deutetraben No 9 mg = 1 Me moria azine 9 MG 7-29 tab, PO, l Oral Tablet 16:50: BID, X 30 H ermann [Austedo] 00 day, # 60 tab, 2 Refill(s), other tramadol Yes 0 Memoria hydrochlori 6-24 Refill(s) l de 50 MG 14:52: [place] Oral Tablet 00 escitalopra Yes 0 Memori a m 10 mg 6-24 Refill(s) l oral tablet 14:28: [place] n 00 Trazodone Yes 0 Memoria Hydrochlori 6-24 Refill(s) l de 50 MG 14:28: Nicholas Oral Tablet 00 OLANZapine Yes 0 Memoria 7.5 mg oral 6-24 Refill(s) l tablet 14:28: Nicholas 00 Sodium Yes 0 Memoria Fluoride 6-24 Refill(s) l 0.011 MG/MG 14:28: [place] n Toothpaste 00 [Prevident] 24 HR Yes 50 mg = 1 Memoria mirabegron 6-24 tab, PO, l 50 MG 14:28: Daily, # Nicholas Extended 00 30 tab, 0 Release Refill(s) Tablet [Myrbetriq] levothyroxi Yes 0 Memori a ne 50 mcg 6-24 Refill(s) l (0.05 mg) 14:28: Nicholas oral tablet 00 Famotidine Yes 0 Memoria 40 MG Oral 6-24 Refill(s) l Tablet 14:28: Nicholas 00 24 HR Yes 0 Memoria Divalproex 6-24 Refill(s) l Sodium 250 14:28: [place] MG Extended 00 Release Tablet Myrbetriq 2021- No [id number] TAKE 1 M ethodi 50 mg 5-20 03-[address] tablet 00:00: 00:00 MOUTH Hospita extended 00 :00 DAILY l release 24 hr diclofenac Yes 75mg Take 1 Unive rs 75 mg EC 1-05 tablet by ity of tablet 00:00: mouth 2 [place] [id number] (two) Medical times Branch daily with meals. ARIPiprazol 2019-07 Yes 5mg Take 5 mg U nivers e (ABILIFY) 07-29 by mouth ity of 5 mg tablet 20:30: daily. [address] Branch escitalopra 2019-07 Yes 10mg Take 10 mg Univers m oxalate 07-29 by mouth ity of (LEXAPRO) 20:30: daily. [place] 20 [facility] Medical tablet Branch ASPIRIN 2019-07 Yes 81mg Take 81 mg Univ ers ORAL 07-29 by mouth. ity of 20:30: [address] traZODONE 2019-07 Yes 1{tbl} Take 1 Univ ers 50 mg -13 tablet by ity of tablet 20:30: mouth. [place] [address] Medical Branch benztropine 2019-07 Yes benztropin Univers 1 mg tablet 07-29 e 1 mg ity of 20:30: tablet TK [place] [address] 1 T PO BID Medical Branch cyclobenzap 2019-07 Yes cyclobenza Univers rine 5 mg -13 su 5 mg ity of tablet 20:30: tablet [address] mirabegron 2019-07 Yes Take by Univ ers (MYRBETRIQ) 07-29 mouth. ity of 50 mg 20:30: [place] tablet Medical Branch OLANZapine 2019-07 Yes 7.5mg Take 7.5 Un paresh 7.5 mg 1-13 mg by ity of tablet 20:30: mouth [place] daily. Medical Branch divalproex 2019-07 Yes 250mg Take 250 Un paresh (DEPAKOTE) 1-13 mg by ity of 250 mg EC 20:30: mouth [place] tablet 26 every 8 Medical (eight) Branch hours. 2 tablets daily ARIPiprazol 2019-07 Yes 5mg Take 5 mg U nivers e (ABILIFY) 1-13 by mouth ity of 5 mg tablet 20:30: daily. [place] [address] Medical Branch escitalopra 2019-07 Yes 10mg Take 10 mg Univers m oxalate 1-13 by mouth ity of (LEXAPRO) 20:30: daily. [place] 20 Medical tablet Branch ASPIRIN 2019-07 Yes 81mg Take 81 mg Univ ers ORAL 1-13 by mouth. ity of 20:30: [address] Branch traZODONE 2019-07 Yes 1{tbl} Take 1 Univ ers 50 mg 1-13 tablet by ity of tablet 20:30: mouth. [place] [address] Medical Branch benztropine 2019-07 Yes benztropin Univers 1 mg tablet 1- e 1 mg ity of 20:30: tablet TK 1 T PO BID Medical Branch cyclobenzap 2019-07 Yes cyclobenza Univers rine 5 mg 1-13 su 5 mg ity of tablet 20:30: tablet [place] [address] Medical Branch mirabegron 2019-07 Yes Take by Univ ers (MYRBETRIQ) 1-13 mouth. ity of 50 mg 20:30: [place] tablet Medical Branch OLANZapine 2019-07 Yes 7.5mg Take 7.5 Un paresh 7.5 mg 1-13 mg by ity of tablet 20:30: mouth [place] 26 daily. Medical Branch divalproex 2019-07 Yes 250mg Take 250 Un paresh (DEPAKOTE) 1-13 mg by ity of 250 mg EC 20:30: mouth [place] tablet 26 every 8 Medical (eight) Branch hours. 2 tablets daily ARIPiprazol 2019-07 Yes 5mg Take 5 mg U nivers e (ABILIFY) 1-13 by mouth ity of 5 mg tablet 20:30: daily. [facility] Medical Branch escitalopra 2019-07 Yes 10mg Take 10 mg Univers m oxalate 13 by mouth ity of (LEXAPRO) 20:30: daily. [place] 20 [facility] Medical tablet Branch ASPIRIN 2019-07 Yes 81mg Take 81 mg Univ ers ORAL -13 by mouth. ity of 20:30: [place] [address] Medical Branch traZODONE 2019-07 Yes 1{tbl} Take 1 Univ ers 50 mg 1-13 tablet by ity of tablet 20:30: mouth. [place] [address] Medical Branch benztropine 2019-07 Yes benztropin Univers 1 mg tablet 07-29 e 1 mg ity of 20:30: tablet TK 1 T PO BID Medical Branch cyclobenzap 2019-07 Yes cyclobenza Univers rine 5 mg -13 su 5 mg ity of tablet 20:30: tablet [place] [address] Medical Branch mirabegron 2019-07 Yes Take by Univ ers (MYRBETRIQ) -13 mouth. ity of 50 mg 20:30: [place] [facility] Branch OLANZapine 2019-07 Yes 7.5mg Take 7.5 Un paresh 7.5 mg 1-13 mg by ity of tablet 20:30: mouth [place] daily. Medical Branch divalproex 2019-07 Yes 250mg Take 250 Un paresh (DEPAKOTE) 1-13 mg by ity of 250 mg EC 20:30: mouth [place] tablet 26 every 8 Medical (eight) Branch hours. 2 tablets daily diclofenac 2019-07 Yes [id number] 75mg Take 1 Univers 75 mg EC 0-22 [id number] tablet by ity of tablet 00:00: mouth [place] (two) Medical times Branch daily with meals. diclofenac 2019-07 Yes [id number] 75mg Take 1 Univers 75 mg EC 0-22 [id number] tablet by ity of tablet 00:00: mouth 2 [place] (two) Medical times Branch daily with meals. diclofenac 2019-07 Yes [id number] 75mg Take 1 Univers 75 mg EC 0-22 [id number] tablet by ity of tablet 00:00: mouth 2 [place] (two) Medical times Branch daily with meals. diclofenac 2019-07 Yes [id number] 75mg Take 1 Univers 75 mg EC 0-22 [id number] tablet by ity of tablet 00:00: mouth 2 [place] (two) Medical times Branch daily with meals. diclofenac 2019- Yes [id number] 75mg Take 1 Univers 75 mg EC 0-22 [id number] tablet by ity of tablet 00:00: mouth 2 [place] (two) Medical times Branch daily with meals. diclofenac 2019- Yes [id number] 75mg Take 1 Univers 75 mg EC 0-22 [id number] tablet by ity of tablet 00:00: mouth 2 [place] (two) Medical times Branch daily with meals. aspirin 2020-0 Yes 81mg QD Take 81 mg Meth selvin (ECOTRIN) [address] 81 MG 10:24: daily. Hospita enteric 21 l coated tablet OLANZapine 2019-0 Yes 10mg QD Take 10 mg M ethodi (ZYPREXA) [address] 10 MG 10:24: nightly. Hospita tablet 21 l benztropine 2020-0 Yes QD daily. Meth selvin (COGENTIN) 07-22 st 1 MG tablet 10:23: Hospit a 30 l divalproex 2020-0 Yes QD nightly. Met hodi (DEPAKOTE) 07-22 st 250 MG 24 10:23: Hospita hr tablet 30 l fluticasone 2020-0 Yes 2{spray QD 2 sprays Methodi (FLONASE) 06 } into each st 50 10:19: nostril Hospita mcg/actuati 05 daily. l on nasal spray ARIPiprazol 2020-0 Yes 1{tbl} QD Take 1 Me thodi e (ABILIFY) 1-[address] 5 MG tablet 10:19: mouth Hospi ta 05 daily. l dexlansopra 2020-0 Yes 1{capsu QD Take 1 M ethodi zole 1-06 le} capsule by st (DEXILANT) 10:19: mouth Hospit a 60 mg 05 daily. l capsule escitalopra 2020-0 Yes 1{tbl} QD Take 1 Me thodi m (LEXAPRO) 1-[address] 20 MG 10:19: mouth Hospita tablet 05 daily. l levothyroxi 2020-0 Yes 1{tbl} QD Take 1 Me thodi ne 1-[address] (SYNTHROID, 10:19: mouth Hospi ta LEVOTHROID) 05 daily. l 88 MCG tablet lithium 300 2020-0 Yes 2{capsu QD Take 2 M ethodi MG capsule 1-06 le} capsules st 10:19: by mouth Hospita 05 daily. l traZODone 2019- Yes 1{tbl} QD Take 1 Meth selvin (DESYREL) 1-[address] 50 MG 10:19: mouth Hospita tablet 05 daily. l estradiol Yes [id number] Apply 0.5 Methodi (ESTRACE) 1-[address] 0.01 % (0.1 00:00: outer Hospi ta mg/gram) 00 vagina l vaginal three cream times/week at night ASPIRIN 2018- Yes 81mg Take 81 mg Univ ers ORAL 2-14 by mouth. ity of 15:50: [address] ASPIRIN Yes 81mg Take 81 mg Univ ers ORAL 2-14 by mouth. ity of 15:50: [address] ASPIRIN 2018-0 Yes 81mg Take 81 mg Univ ers ORAL 2-14 by mouth. ity of 15:50: [address] ASPIRIN 2018- Yes 81mg Take 81 mg Univ ers ORAL 2-14 by mouth. ity of 15:50: [address] ASPIRIN 0 Yes 81mg Take 81 mg Univ ers ORAL 2-14 by mouth. ity of 15:50: [address] ASPIRIN 2018-0 Yes 81mg Take 81 mg Univ ers ORAL 2-14 by mouth. ity of 15:50: [address] ASPIRIN 2019-0 Yes 81mg Take 81 mg Univ ers ORAL 2-14 by mouth. ity of 15:50: [address] ASPIRIN 2019-0 Yes 81mg Take 81 mg Univ ers ORAL 2-14 by mouth. ity of 15:50: [address] ASPIRIN 2019-0 Yes 81mg Take 81 mg Univ ers ORAL 2-14 by mouth. ity of 15:50: [address] ASPIRIN 2019-0 Yes 81mg Take 81 mg Univ ers ORAL 2-14 by mouth. ity of 15:50: [address] ASPIRIN 2019-0 Yes 81mg Take 81 mg Univ ers ORAL 2-14 by mouth. ity of 15:50: [address] ASPIRIN 2019-0 Yes 81mg Take 81 mg Univ ers ORAL 2-14 by mouth. ity of 15:50: [address] ASPIRIN 2019-0 Yes 81mg Take 81 mg Univ ers ORAL 2-14 by mouth. ity of 15:50: [address] ASPIRIN Yes 81mg Take 81 mg Univ ers ORAL 2-14 by mouth. ity of 15:50: [address] ASPIRIN Yes 81mg Take 81 mg Univ ers ORAL 2-14 by mouth. ity of 15:50: [address] ARIPiprazol Yes 5mg Take 5 mg U nivers e (ABILIFY) 2-07 by mouth ity of 5 mg tablet 16:06: daily. [address] benztropine Yes benztropin Univers 1 mg tablet 2-07 e 1 mg ity of 16:06: tablet TK [place] [address] 1 T PO BID [facility] cyclobenzap Yes cyclobenza Univers rine 5 mg 2-07 su 5 mg ity of tablet 16:06: tablet [address] ARIPiprazol Yes 5mg Take 5 mg U nivers e (ABILIFY) 2-07 by mouth ity of 5 mg tablet 16:06: daily. [address] ARIPiprazol Yes 5mg Take 5 mg U nivers e (ABILIFY) 2-07 by mouth ity of 5 mg tablet 16:06: daily. [address] benztropine Yes benztropin Univers 1 mg tablet 2-07 e 1 mg ity of 16:06: tablet TK [place] [address] 1 T PO BID [facility] cyclobenzap Yes cyclobenza Univers rine 5 mg 2-07 su 5 mg ity of tablet 16:06: tablet [address] ARIPiprazol Yes 5mg Take 5 mg U nivers e (ABILIFY) 2-07 by mouth ity of 5 mg tablet 16:06: daily. [address] benztropine Yes benztropin Univers 1 mg tablet 2-07 e 1 mg ity of 16:06: tablet TK [place] [address] 1 T PO BID [facility] cyclobenzap Yes cyclobenza Univers rine 5 mg 2-07 su 5 mg ity of tablet 16:06: tablet [address] ARIPiprazol Yes 5mg Take 5 mg U nivers e (ABILIFY) 2-07 by mouth ity of 5 mg tablet 16:06: daily. [address] benztropine Yes benztropin Univers 1 mg tablet 2-07 e 1 mg ity of 16:06: tablet TK [place] [address] 1 T PO BID [facility] cyclobenzap Yes cyclobenza Univers rine 5 mg 2-07 su 5 mg ity of tablet 16:06: tablet [address] ARIPiprazol Yes 5mg Take 5 mg U nivers e (ABILIFY) 2-07 by mouth ity of 5 mg tablet 16:06: daily. [address] benztropine Yes benztropin Univers 1 mg tablet 2-07 e 1 mg ity of 16:06: tablet TK [place] [address] 1 T PO BID [facility] cyclobenzap Yes cyclobenza Univers rine 5 mg 2-07 su 5 mg ity of tablet 16:06: tablet [address] ARIPiprazol Yes 5mg Take 5 mg U nivers e (ABILIFY) 2-07 by mouth ity of 5 mg tablet 16:06: daily. [address] benztropine Yes benztropin Univers 1 mg tablet 2-07 e 1 mg ity of 16:06: tablet [place] [address] 1 T PO BID [facility] cyclobenzap Yes cyclobenza Univers rine 5 mg 2-07 su 5 mg ity of tablet 16:06: tablet [address] ARIPiprazol Yes 5mg Take 5 mg U nivers e (ABILIFY) 2-07 by mouth ity of 5 mg tablet 16:06: daily. [address] benztropine Yes benztropin Univers 1 mg tablet 2-07 e 1 mg ity of 16:06: tablet TK [place] [address] 1 T PO BID [facility] cyclobenzap Yes cyclobenza Univers rine 5 mg 2-07 su 5 mg ity of tablet 16:06: tablet [address] benztropine Yes benztropin Univers 1 mg tablet 2-07 e 1 mg ity of 16:06: tablet TK [place] [address] 1 T PO BID [facility] ARIPiprazol Yes 5mg Take 5 mg U nivers e (ABILIFY) 2-07 by mouth ity of 5 mg tablet 16:06: daily. [address] cyclobenzap Yes cyclobenza Univers rine 5 mg 2-07 su 5 mg ity of tablet 16:06: tablet [address] benztropine Yes benztropin Univers 1 mg tablet 2-07 e 1 mg ity of 16:06: tablet [place] [address] 1 T PO BID [facility] cyclobenzap Yes cyclobenza Univers rine 5 mg 2-07 su 5 mg ity of tablet 16:06: tablet [address] ARIPiprazol Yes 5mg Take 5 mg U nivers e (ABILIFY) 2-07 by mouth ity of 5 mg tablet 16:06: daily. [address] benztropine Yes benztropin Univers 1 mg tablet 2-07 e 1 mg ity of 16:06: tablet [place] [address] T PO BID [facility] cyclobenzap Yes cyclobenza Univers rine 5 mg 2-07 su 5 mg ity of tablet 16:06: tablet [address] ARIPiprazol Yes 5mg Take 5 mg U nivers e (ABILIFY) 2-07 by mouth ity of 5 mg tablet 16:06: daily. [address] benztropine Yes benztropin Univers 1 mg tablet 2-07 e 1 mg ity of 16:06: tablet [place] [address] T PO BID [facility] cyclobenzap Yes cyclobenza Univers rine 5 mg 2-07 su 5 mg ity of tablet 16:06: tablet [address] ARIPiprazol Yes 5mg Take 5 mg U nivers e (ABILIFY) 2-07 by mouth ity of 5 mg tablet 16:06: daily. [address] benztropine Yes benztropin Univers 1 mg tablet 2-07 e 1 mg ity of 16:06: tablet [place] [address] T PO BID [facility] cyclobenzap Yes cyclobenza Univers rine 5 mg 2-07 su 5 mg ity of tablet 16:06: tablet [address] ARIPiprazol Yes 5mg Take 5 mg U nivers e (ABILIFY) 2-07 by mouth ity of 5 mg tablet 16:06: daily. [address] benztropine Yes benztropin Univers 1 mg tablet 2-07 e 1 mg ity of 16:06: tablet TK [place] [address] 1 T PO BID [facility] cyclobenzap Yes cyclobenza Univers rine 5 mg 2-07 su 5 mg ity of tablet 16:06: tablet [address] ARIPiprazol Yes 5mg Take 5 mg U nivers e (ABILIFY) 2-07 by mouth ity of 5 mg tablet 16:06: daily. [address] benztropine Yes benztropin Univers 1 mg tablet 2-07 e 1 mg ity of 16:06: tablet TK [place] [address] 1 T PO BID [facility] cyclobenzap Yes cyclobenza Univers rine 5 mg 2-07 su 5 mg ity of tablet 16:06: tablet [address] ARIPiprazol Yes 5mg Take 5 mg U nivers e (ABILIFY) 2-07 by mouth ity of 5 mg tablet 16:06: daily. [address] benztropine Yes benztropin Univers 1 mg tablet 2-07 e 1 mg ity of 16:06: tablet TK [place] [address] 1 T PO BID [facility] cyclobenzap Yes cyclobenza Univers rine 5 mg 2-07 su 5 mg ity of tablet 16:06: tablet [address] traZODONE Yes 1{tbl} Take 1 Univ ers 50 mg 1-17 tablet by ity of tablet 16:09: mouth. [address] traZODONE Yes 1{tbl} Take 1 Univ ers 50 mg 1-17 tablet by ity of tablet 16:09: mouth. [address] traZODONE Yes 1{tbl} Take 1 Univ ers 50 mg 1-17 tablet by ity of tablet 16:09: mouth. [address] traZODONE Yes 1{tbl} Take 1 Univ ers 50 mg 1-17 tablet by ity of tablet 16:09: mouth. [address] traZODONE Yes 1{tbl} Take 1 Univ ers 50 mg 1-17 tablet by ity of tablet 16:09: mouth. [address] traZODONE Yes 1{tbl} Take 1 Univ ers 50 mg 1-17 tablet by ity of tablet 16:09: mouth. [address] traZODONE Yes 1{tbl} Take 1 Univ ers 50 mg 1-17 tablet by ity of tablet 16:09: mouth. [address] traZODONE Yes 1{tbl} Take 1 Univ ers 50 mg 1-17 tablet by ity of tablet 16:09: mouth. [address] traZODONE Yes 1{tbl} Take 1 Univ ers 50 mg 1-17 tablet by ity of tablet 16:09: mouth. [address] traZODONE Yes 1{tbl} Take 1 Univ ers 50 mg 1-17 tablet by ity of tablet 16:09: mouth. [address] traZODONE Yes 1{tbl} Take 1 Univ ers 50 mg 1-17 tablet by ity of tablet 16:09: mouth. [address] traZODONE Yes 1{tbl} Take 1 Univ ers 50 mg 1-17 tablet by ity of tablet 16:09: mouth. [address] traZODONE Yes 1{tbl} Take 1 Univ ers 50 mg 1-17 tablet by ity of tablet 16:09: mouth. [address] traZODONE Yes 1{tbl} Take 1 Univ ers 50 mg 1-17 tablet by ity of tablet 16:09: mouth. [address] traZODONE Yes 1{tbl} Take 1 Univ ers 50 mg 1-17 tablet by ity of tablet 16:09: mouth. [address] escitalopra Yes 20mg Take 20 mg Univers m oxalate 1-17 by mouth ity of (LEXAPRO) 16:07: daily. [place] 20 mg 25 Medical tablet Branch escitalopra 2019-0 Yes 20mg Take 20 mg Univers m oxalate 1-17 by mouth ity of (LEXAPRO) 16:07: daily. [place] 20 mg 25 Medical tablet Branch escitalopra 0 Yes 20mg Take 20 mg Univers m oxalate 1-17 by mouth ity of (LEXAPRO) 16:07: daily. [place] 20 mg 25 Medical tablet Branch escitalopra 0 Yes 20mg Take 20 mg Univers m oxalate 1-17 by mouth ity of (LEXAPRO) 16:07: daily. [place] 20 mg 25 Medical tablet Branch escitalopra 0 Yes 20mg Take 20 mg Univers m oxalate 1-17 by mouth ity of (LEXAPRO) 16:07: daily. [place] 20 mg 25 Medical tablet Branch escitalopra 0 Yes 20mg Take 20 mg Univers m oxalate 1-17 by mouth ity of (LEXAPRO) 16:07: daily. [place] 20 mg 25 Medical tablet Branch escitalopra Yes 20mg Take 20 mg Univers m oxalate 1-17 by mouth ity of (LEXAPRO) 16:07: daily. [place] 20 mg 25 Medical tablet Branch escitalopra Yes 20mg Take 20 mg Univers m oxalate 1-17 by mouth ity of (LEXAPRO) 16:07: daily. [place] 20 mg 25 Medical tablet Branch escitalopra Yes 20mg Take 20 mg Univers m oxalate 1-17 by mouth ity of (LEXAPRO) 16:07: daily. [place] 20 mg 25 Medical tablet Branch escitalopra 0 Yes 20mg Take 20 mg Univers m oxalate 1-17 by mouth ity of (LEXAPRO) 16:07: daily. [place] 20 mg 25 Medical tablet Branch escitalopra 0 Yes 20mg Take 20 mg Univers m oxalate 1-17 by mouth ity of (LEXAPRO) 16:07: daily. [place] 20 mg 25 Medical tablet Branch escitalopra 2018-0 Yes 20mg Take 20 mg Univers m oxalate 1-17 by mouth ity of (LEXAPRO) 16:07: daily. [place] 20 mg 25 Medical tablet Branch escitalopra 2018-0 Yes 20mg Take 20 mg Univers m oxalate 1-17 by mouth ity of (LEXAPRO) 16:07: daily. [place] 20 mg 25 Medical tablet Branch escitalopra Yes 20mg Take 20 mg Univers m oxalate 1-17 by mouth ity of (LEXAPRO) 16:07: daily. [place] 20 mg 25 Medical tablet Branch escitalopra Yes 20mg Take 20 mg Univers m oxalate 1-17 by mouth ity of (LEXAPRO) 16:07: daily. [place] 20 mg 25 [facility] tablet [place] omeprazole 2017-07 Yes TK 1 C PO Un paresh 40 mg 2-26 D ity of capsule 00:00: [place] [facility] omeprazole 2017-07 Yes TK 1 C PO Un paresh 40 mg 2-26 D ity of capsule 00:00: [place] [facility] omeprazole 2017-07 Yes TK 1 C PO Un paresh 40 mg 2-26 D ity of capsule 00:00: [place] [facility] omeprazole 2017-07 Yes TK 1 C PO Un paresh 40 mg 2-26 D ity of capsule 00:00: [place] [facility] omeprazole 2017-07 Yes TK 1 C PO Un paresh 40 mg 2-26 D ity of capsule 00:00: [place] [facility] omeprazole 2017-07 Yes TK 1 C PO Un paresh 40 mg 2-26 D ity of capsule 00:00: [place] [facility] omeprazole 2017-07 Yes TK 1 C PO Un paresh 40 mg 2-26 D ity of capsule 00:00: [place] [facility] omeprazole 2017-07 Yes TK 1 C PO Un paresh 40 mg 2-26 D ity of capsule 00:00: [place] [facility] omeprazole 2017-07 Yes TK 1 C PO Un paresh 40 mg 2-26 D ity of capsule 00:00: [place] [facility] omeprazole 2017-07 Yes TK 1 C PO Un paresh 40 mg 2-26 D ity of capsule 00:00: [place] [facility] omeprazole 2017-07 Yes TK 1 C PO Un paresh 40 mg 2-26 D ity of capsule 00:00: [place] [facility] omeprazole 2017-07 Yes TK 1 C PO Un paresh 40 mg 2-26 D ity of capsule 00:00: [address] omeprazole 2017-07 Yes TK 1 C PO Un paresh 40 mg 2-26 D ity of capsule 00:00: [place] [facility] omeprazole 2017-07 Yes TK 1 C PO Un paresh 40 mg 2-26 D ity of capsule 00:00: [facility] omeprazole 2017- Yes TK 1 C PO Un paresh 40 mg 2-26 D ity of capsule 00:00: [facility] omeprazole 2017-07 Yes TK 1 C PO Un paresh 40 mg 2-26 D ity of capsule 00:00: [facility] omeprazole 2017-07 Yes TK 1 C PO Un paresh 40 mg 2-26 D ity of capsule 00:00: [facility] omeprazole 2017-07 Yes TK 1 C PO Un paresh 40 mg 2-26 D ity of capsule 00:00: [facility] omeprazole 2017-07 Yes Q.5D 2 (two) Meth selvin (PriLOSEC) 2-[address] 40 MG 00:00: day. [facility] capsule 00 l methylPREDN 2018-0 Yes 84mg Take 21 Uni vers ISolone 2-28 tablets by ity of (MEDROL, 00:00: mouth [place] LINDA,) 4 mg 00 SEE-INSTRU Med ical tablets CTIONS. Branch follow package directions methylPREDN 2018-0 Yes 84mg Take 21 Uni vers ISolone 2-28 tablets by ity of (MEDROL, 00:00: mouth [place] LINDA,) 4 mg 00 SEE-INSTRU Med ical tablets CTIONS. Branch follow package directions methylPREDN 2018-0 Yes 84mg Take 21 Uni vers ISolone 2-28 tablets by ity of (MEDROL, 00:00: mouth [place] LINDA,) 4 mg 00 SEE-INSTRU Med ical tablets CTIONS. Branch follow package directions methylPREDN 2018-0 Yes 84mg Take 21 Uni vers ISolone 2-28 tablets by ity of (MEDROL, 00:00: mouth [place] LINDA,) 4 mg 00 SEE-INSTRU Med ical tablets CTIONS. Branch follow package directions methylPREDN 2018-0 Yes 84mg Take 21 Uni vers ISolone 2-28 tablets by ity of (MEDROL, 00:00: mouth [place] LINDA,) 4 mg 00 SEE-INSTRU Med ical tablets CTIONS. Branch follow package directions methylPREDN 2018-0 Yes 84mg Take 21 Uni vers ISolone 2-28 tablets by ity of (MEDROL, 00:00: mouth [place] LINDA,) 4 mg 00 SEE-INSTRU Med ical tablets CTIONS. Branch follow package directions methylPREDN 2018-0 Yes 84mg Take 21 Uni vers ISolone 2-28 tablets by ity of (MEDROL, 00:00: mouth [place] LINDA,) 4 mg 00 SEE-INSTRU Med ical tablets CTIONS. Branch follow package directions methylPREDN 2018-0 Yes 84mg Take 21 Uni vers ISolone 2-28 tablets by ity of (MEDROL, 00:00: mouth [place] LINDA,) 4 mg 00 SEE-INSTRU Med ical tablets CTIONS. Branch follow package directions methylPREDN 2018-0 Yes 84mg Take 21 Uni vers ISolone 2-28 tablets by ity of (MEDROL, 00:00: mouth [place] LINDA,) 4 mg 00 SEE-INSTRU Med ical tablets CTIONS. Branch follow package directions methylPREDN 2018-0 Yes 84mg Take 21 Uni vers ISolone 2-28 tablets by ity of (MEDROL, 00:00: mouth [place] LINDA,) 4 mg 00 SEE-INSTRU Med ical tablets CTIONS. Branch follow package directions methylPREDN 2018-0 Yes 84mg Take 21 Uni vers ISolone 2-28 tablets by ity of (MEDROL, 00:00: mouth [place] LINDA,) 4 mg 00 SEE-INSTRU Med ical tablets CTIONS. Branch follow package directions methylPREDN 2018-0 Yes 84mg Take 21 Uni vers ISolone 2-28 tablets by ity of (MEDROL, 00:00: mouth [place] LINDA,) 4 mg 00 SEE-INSTRU Med ical tablets CTIONS. Branch follow package directions methylPREDN 2018-0 Yes 84mg Take 21 Uni vers ISolone 2-28 tablets by ity of (MEDROL, 00:00: mouth [place] LINDA,) 4 mg 00 SEE-INSTRU Med ical tablets CTIONS. Branch follow package directions methylPREDN 2018-0 Yes 84mg Take 21 Uni vers ISolone 2-28 tablets by ity of (MEDROL, 00:00: mouth [place] LINDA,) 4 mg 00 SEE-INSTRU Med ical tablets CTIONS. Branch follow package directions methylPREDN 2018-0 Yes 84mg Take 21 Uni vers ISolone 2-28 tablets by ity of (MEDROL, 00:00: mouth [place] LINDA,) 4 mg 00 SEE-INSTRU Med ical tablets CTIONS. Branch follow package directions methylPREDN 2018-0 Yes 84mg Take 21 Uni vers ISolone 2-28 tablets by ity of (MEDROL, 00:00: mouth [place] LINDA,) 4 mg 00 SEE-INSTRU Med ical tablets CTIONS. Branch follow package directions methylPREDN 2018-0 Yes 84mg Take 21 Uni vers ISolone 2-28 tablets by ity of (MEDROL, 00:00: mouth [place] LINDA,) 4 mg 00 SEE-INSTRU Med ical tablets CTIONS. Branch follow package directions methylPREDN 2018-0 Yes 84mg Take 21 Uni vers ISolone 2-28 tablets by ity of (MEDROL, 00:00: mouth [place] LINDA,) 4 mg 00 SEE-INSTRU Med ical tablets CTIONS. Branch follow package directions propranolol 2018-0 Yes TK 1 T PO U nivers 10 mg 1-11 IN THE ity of tablet 00:00: MORNING [place] [facility] propranolol 2018-0 Yes TK 1 T PO U nivers 10 mg 1-11 IN THE ity of tablet 00:00: MORNING [place] [facility] propranolol 2018-0 Yes TK 1 T PO U nivers 10 mg 1-11 IN THE ity of tablet 00:00: MORNING [place] [facility] propranolol 2018-0 Yes TK 1 T PO U nivers 10 mg 1-11 IN THE ity of tablet 00:00: MORNING [place] [facility] propranolol 2018-0 Yes TK 1 T PO U nivers 10 mg 1-11 IN THE ity of tablet 00:00: MORNING [place] [facility] propranolol 2018-0 Yes TK 1 T PO U nivers 10 mg 1-11 IN THE ity of tablet 00:00: MORNING [place] [facility] propranolol 2018-0 Yes TK 1 T PO U nivers 10 mg 1-11 IN THE ity of tablet 00:00: MORNING [place] [facility] propranolol 2018-0 Yes TK 1 T PO U nivers 10 mg 1-11 IN THE ity of tablet 00:00: MORNING [place] [facility] propranolol 2018-0 Yes TK 1 T PO U nivers 10 mg 1-11 IN THE ity of tablet 00:00: MORNING [place] [facility] propranolol 2018-0 Yes TK 1 T PO U nivers 10 mg 1-11 IN THE ity of tablet 00:00: MORNING [place] [facility] propranolol 2018-0 Yes TK 1 T PO U nivers 10 mg 1-11 IN THE ity of tablet 00:00: MORNING [place] [facility] propranolol 2018-0 Yes TK 1 T PO U nivers 10 mg 1-11 IN THE ity of tablet 00:00: MORNING [place] [facility] propranolol 2018-0 Yes TK 1 T PO U nivers 10 mg 1-11 IN THE ity of tablet 00:00: MORNING [place] [facility] propranolol 2018-0 Yes TK 1 T PO U nivers 10 mg 1-11 IN THE ity of tablet 00:00: MORNING [place] [facility] propranolol 2018-0 Yes TK 1 T PO U nivers 10 mg 1-11 IN THE ity of tablet 00:00: MORNING [place] [facility] propranolol 2018-0 Yes TK 1 T PO U nivers 10 mg 1-11 IN THE ity of tablet 00:00: MORNING [place] [facility] propranolol 2018-0 Yes TK 1 T PO U nivers 10 mg 1-11 IN THE ity of tablet 00:00: MORNING [place] [facility] propranolol 2018-0 Yes TK 1 T PO U nivers 10 mg 1-11 IN THE ity of tablet 00:00: MORNING [place] [facility] levothyroxi 2017 Yes TK 1 T PO U nivers ne 75 mcg 2-18 ONCE A DAY ity of tablet 00:00: [place] [facility] levothyroxi 2017 Yes TK 1 T PO U nivers ne 75 mcg 2-18 ONCE A DAY ity of tablet 00:00: [place] [facility] levothyroxi 2016-07 Yes TK 1 T PO U nivers ne 75 mcg 2-18 ONCE A DAY ity of tablet 00:00: [place] [facility] levothyroxi 2016-07 Yes TK 1 T PO U nivers ne 75 mcg 2-18 ONCE A DAY ity of tablet 00:00: [place] [facility] levothyroxi 2016-07 Yes TK 1 T PO U nivers ne 75 mcg 2-18 ONCE A DAY ity of tablet 00:00: [place] [facility] levothyroxi 2016-07 Yes TK 1 T PO U nivers ne 75 mcg 2-18 ONCE A DAY ity of tablet 00:00: [place] [facility] levothyroxi 2016-07 Yes TK 1 T PO U nivers ne 75 mcg 2-18 ONCE A DAY ity of tablet 00:00: [place] [facility] levothyroxi 2016-07 Yes TK 1 T PO U nivers ne 75 mcg 2-18 ONCE A DAY ity of tablet 00:00: [place] [facility] levothyroxi 2016-07 Yes TK 1 T PO U nivers ne 75 mcg 2-18 ONCE A DAY ity of tablet 00:00: [place] [facility] levothyroxi 2016-07 Yes TK 1 T PO U nivers ne 75 mcg 2-18 ONCE A DAY ity of tablet 00:00: [place] [facility] levothyroxi 2016-07 Yes TK 1 T PO U nivers ne 75 mcg 2-18 ONCE A DAY ity of tablet 00:00: [place] [facility] levothyroxi 2016-07 Yes TK 1 T PO U nivers ne 75 mcg 2-18 ONCE A DAY ity of tablet 00:00: [place] [facility] levothyroxi 2016-07 Yes TK 1 T PO U nivers ne 75 mcg 2-18 ONCE A DAY ity of tablet 00:00: [place] [facility] levothyroxi 2016-07 Yes TK 1 T PO U nivers ne 75 mcg 2-18 ONCE A DAY ity of tablet 00:00: [place] [facility] levothyroxi 2016-07 Yes TK 1 T PO U nivers ne 75 mcg 2-18 ONCE A DAY ity of tablet 00:00: [place] [facility] levothyroxi 2016-07 Yes TK 1 T PO U nivers ne 75 mcg 2-18 ONCE A DAY ity of tablet 00:00: [place] [facility] levothyroxi 2016-07 Yes TK 1 T PO U nivers ne 75 mcg 2-18 ONCE A DAY ity of tablet 00:00: [place] [facility] levothyroxi 2016-07 Yes TK 1 T PO U nivers ne 75 mcg 2-18 ONCE A DAY ity of tablet 00:00: [place] [facility] Branch traMADOL 50 2016-07 Yes TK 1 T PO U nivers mg tablet 2-05 BID PRF ity of 00:00: SEVERE [place] PAIN Medical Branch traMADOL 50 2016-07 Yes TK 1 T PO U nivers mg tablet 2-05 BID PRF ity of 00:00: SEVERE [place] PAIN Medical Branch traMADOL 50 2016-07 Yes TK 1 T PO U nivers mg tablet 2-05 BID PRF ity of 00:00: SEVERE [place] PAIN Medical Branch traMADOL 50 2016-07 Yes TK 1 T PO U nivers mg tablet 2-05 BID PRF ity of 00:00: SEVERE [place] 00 PAIN Medical Branch traMADOL 50 2016-07 Yes TK 1 T PO U nivers mg tablet 2-05 BID PRF ity of 00:00: SEVERE [place] 00 PAIN Medical Branch traMADOL 50 2016-07 Yes TK 1 T PO U nivers mg tablet 2-05 BID PRF ity of 00:00: SEVERE [place] 00 PAIN Medical Branch traMADOL 50 2016-07 Yes TK 1 T PO U nivers mg tablet 2-05 BID PRF ity of 00:00: SEVERE [place] 00 PAIN Medical Branch traMADOL 50 2016-07 Yes TK 1 T PO U nivers mg tablet 2-05 BID PRF ity of 00:00: SEVERE [place] 00 PAIN Medical Branch traMADOL 50 2016-07 Yes TK 1 T PO U nivers mg tablet 2-05 BID PRF ity of 00:00: SEVERE [place] 00 PAIN Medical Branch traMADOL 50 2016-07 Yes TK 1 T PO U nivers mg tablet 2-05 BID PRF ity of 00:00: SEVERE [place] 00 PAIN Medical Branch traMADOL 50 2016-07 Yes TK 1 T PO U nivers mg tablet 2-05 BID PRF ity of 00:00: SEVERE [place] 00 PAIN Medical Branch traMADOL 50 2016-07 Yes TK 1 T PO U nivers mg tablet 2-05 BID PRF ity of 00:00: SEVERE [place] 00 PAIN Medical Branch traMADOL 50 2016-07 Yes TK 1 T PO U nivers mg tablet 2-05 BID PRF ity of 00:00: SEVERE [place] 00 PAIN Medical Branch traMADOL 50 2016-07 Yes TK 1 T PO U nivers mg tablet 2-05 BID PRF ity of 00:00: SEVERE [place] 00 PAIN Medical Branch traMADOL 50 2016-07 Yes TK 1 T PO U nivers mg tablet 2-05 BID PRF ity of 00:00: SEVERE [place] 00 PAIN Medical Branch traMADOL 50 2016-07 Yes TK 1 T PO U nivers mg tablet 2-05 BID PRF ity of 00:00: SEVERE [place] 00 PAIN Medical Branch traMADOL 50 2016-07 Yes TK 1 T PO U nivers mg tablet 2-05 BID PRF ity of 00:00: SEVERE [place] 00 PAIN Medical Branch traMADOL 50 2016-07 Yes TK 1 T PO U nivers mg tablet 2-05 BID PRF ity of 00:00: SEVERE [place] 00 PAIN Medical Branch Trazodone Trazodone Yes [place]ani 1 tablet [facility] HCl HCl 5-18 [place] at bedtime [facility] 00:00: as needed - [facility] 00 [facility] traZODONE 2017-0 Yes 50mg Take 50 mg Un paresh (DESYREL) 3-13 by mouth ity of 50 mg 21:14: at [place] tablet 23 bedtime. Medical Branch traZODONE 2017-0 Yes 50mg Take 50 mg Un paresh (DESYREL) 3-13 by mouth ity of 50 mg 21:14: at [place] tablet 23 bedtime. Medical Branch traZODONE 2017-0 Yes 50mg Take 50 mg Un paresh (DESYREL) 3-13 by mouth ity of 50 mg 21:14: at [place] tablet 23 bedtime. Medical Branch traZODONE 2017-0 Yes 50mg Take 50 mg Un paresh (DESYREL) 3-13 by mouth ity of 50 mg 21:14: at [place] tablet 23 bedtime. Medical Branch traZODONE 2017-0 Yes 50mg Take 50 mg Un paresh (DESYREL) 3-13 by mouth ity of 50 mg 21:14: at [place] tablet 23 bedtime. Medical Branch traZODONE 2017-0 Yes 50mg Take 50 mg Un paresh (DESYREL) 3-13 by mouth ity of 50 mg 21:14: at [place] tablet 23 bedtime. Medical Branch traZODONE 2017-0 Yes 50mg Take 50 mg Un paresh (DESYREL) 3-13 by mouth ity of 50 mg 21:14: at [place] tablet 23 bedtime. Medical Branch traZODONE 2017-0 Yes 50mg Take 50 mg Un paresh (DESYREL) 3-13 by mouth ity of 50 mg 21:14: at [place] tablet 23 bedtime. Medical Branch traZODONE 2017-0 Yes 50mg Take 50 mg Un paresh (DESYREL) 3-13 by mouth ity of 50 mg 21:14: at [place] tablet 23 bedtime. Medical Branch traZODONE 2017-0 Yes 50mg Take 50 mg Un paresh (DESYREL) 3-13 by mouth ity of 50 mg 21:14: at [place] tablet 23 bedtime. Medical Branch traZODONE 2017-0 Yes 50mg Take 50 mg Un paresh (DESYREL) 3-13 by mouth ity of 50 mg 21:14: at [place] tablet 23 bedtime. Medical Branch traZODONE 2017-0 Yes 50mg Take 50 mg Un paresh (DESYREL) 3-13 by mouth ity of 50 mg 21:14: at [place] tablet 23 bedtime. Medical Branch traZODONE 2017-0 Yes 50mg Take 50 mg Un paresh (DESYREL) 3-13 by mouth ity of 50 mg 21:14: at [place] tablet 23 bedtime. Medical Branch traZODONE 2017-0 Yes 50mg Take 50 mg Un paresh (DESYREL) 3-13 by mouth ity of 50 mg 21:14: at [place] tablet 23 bedtime. Medical Branch traZODONE 2017-0 Yes 50mg Take 50 mg Un paresh (DESYREL) 3-13 by mouth ity of 50 mg 21:14: at [place] tablet 23 bedtime. Medical Branch traZODONE 2017-0 Yes 50mg Take 50 mg Un paresh (DESYREL) 3-13 by mouth ity of 50 mg 21:14: at [place] tablet 23 bedtime. Medical Branch traZODONE 2017-0 Yes 50mg Take 50 mg Un paresh (DESYREL) 3-13 by mouth ity of 50 mg 21:14: at [place] tablet 23 bedtime. Medical Branch traZODONE 2017-0 Yes 50mg Take 50 mg Un paresh (DESYREL) 3-13 by mouth ity of 50 mg 21:14: at [place] tablet 23 bedtime. Medical Branch RESTASIS 2015-07 Yes INSTILL 1 Univ ers 0.05 % 1-28 GTT IN OU ity of ophthalmic 00:00: BID [place] drops 00 Medical Branch PATADAY 0.2 2015-07 Yes INSTILL 1 U nivers % 1-28 GTT QD IN ity of ophthalmic 00:00: OU [place] drops 00 Medical Branch RESTASIS 2015-07 Yes INSTILL 1 Univ ers 0.05 % 1-28 GTT IN OU ity of ophthalmic 00:00: BID [place] drops 00 Medical Branch PATADAY 0.2 2015-07 Yes INSTILL 1 U nivers % 1-28 GTT QD IN ity of ophthalmic 00:00: OU [place] drops 00 Medical Branch RESTASIS 2015-07 Yes INSTILL 1 Univ ers 0.05 % 1-28 GTT IN OU ity of ophthalmic 00:00: BID [place] drops 00 Medical Branch PATADAY 0.2 2016- Yes INSTILL 1 U nivers % 1-28 GTT QD IN ity of ophthalmic 00:00: OU [place] drops 00 Medical Branch RESTASIS 2016- Yes INSTILL 1 Univ ers 0.05 % 1-28 GTT IN OU ity of ophthalmic 00:00: BID [place] drops 00 Medical Branch RESTASIS 2016- Yes INSTILL 1 Univ ers 0.05 % 1-28 GTT IN OU ity of ophthalmic 00:00: BID [place] drops 00 Medical Branch PATADAY 0.2 2016 Yes INSTILL 1 U nivers % 1-28 GTT QD IN ity of ophthalmic 00:00: OU [place] drops 00 Medical Branch PATADAY 0.2 2016- Yes INSTILL 1 U nivers % 1-28 GTT QD IN ity of ophthalmic 00:00: OU [place] drops 00 Medical Branch RESTASIS 2016- Yes INSTILL 1 Univ ers 0.05 % 1-28 GTT IN OU ity of ophthalmic 00:00: BID [place] drops 00 Medical Branch PATADAY 0.2 2016 Yes INSTILL 1 U nivers % 1-28 GTT QD IN ity of ophthalmic 00:00: OU [place] drops 00 Medical Branch RESTASIS 2016- Yes INSTILL 1 Univ ers 0.05 % 1-28 GTT IN OU ity of ophthalmic 00:00: BID [place] drops 00 Medical Branch PATADAY 0.2 2015-07 Yes INSTILL 1 U nivers % 1-28 GTT QD IN ity of ophthalmic 00:00: OU [place] drops 00 Medical Branch RESTASIS 2016- Yes INSTILL 1 Univ ers 0.05 % 1-28 GTT IN OU ity of ophthalmic 00:00: BID [place] drops 00 Medical Branch PATADAY 0.2 2015-07 Yes INSTILL 1 U nivers % 1-28 GTT QD IN ity of ophthalmic 00:00: OU [place] drops 00 Medical Branch RESTASIS 2016- Yes INSTILL 1 Univ ers 0.05 % 1-28 GTT IN OU ity of ophthalmic 00:00: BID [place] drops 00 Medical Branch PATADAY 0.2 2015-07 Yes INSTILL 1 U nivers % 1-28 GTT QD IN ity of ophthalmic 00:00: OU [place] drops 00 Medical Branch RESTASIS 2015-07 Yes INSTILL 1 Univ ers 0.05 % 1-28 GTT IN OU ity of ophthalmic 00:00: BID [place] drops 00 Medical Branch PATADAY 0.2 2016- Yes INSTILL 1 U nivers % 1-28 GTT QD IN ity of ophthalmic 00:00: OU [place] drops 00 Medical Branch RESTASIS 2016- Yes INSTILL 1 Univ ers 0.05 % 1-28 GTT IN OU ity of ophthalmic 00:00: BID [place] drops 00 Medical Branch PATADAY 0.2 2016- Yes INSTILL 1 U nivers % 1-28 GTT QD IN ity of ophthalmic 00:00: OU [place] drops 00 Medical Branch RESTASIS 2016- Yes INSTILL 1 Univ ers 0.05 % 1-28 GTT IN OU ity of ophthalmic 00:00: BID [place] drops 00 Medical Branch PATADAY 0.2 2016- Yes INSTILL 1 U nivers % 1-28 GTT QD IN ity of ophthalmic 00:00: OU [place] drops 00 Medical Branch RESTASIS 2016- Yes INSTILL 1 Univ ers 0.05 % 1-28 GTT IN OU ity of ophthalmic 00:00: BID [place] drops 00 Medical Branch PATADAY 0.2 2016 Yes INSTILL 1 U nivers % 1-28 GTT QD IN ity of ophthalmic 00:00: OU [place] drops 00 Medical Branch RESTASIS 2016- Yes INSTILL 1 Univ ers 0.05 % 1-28 GTT IN OU ity of ophthalmic 00:00: BID [place] drops 00 Medical Branch RESTASIS 2016- Yes INSTILL 1 Univ ers 0.05 % 1-28 GTT IN OU ity of ophthalmic 00:00: BID [place] drops 00 Medical Branch PATADAY 0.2 2016- Yes INSTILL 1 U nivers % 1-28 GTT QD IN ity of ophthalmic 00:00: OU [place] drops 00 Medical Branch PATADAY 0.2 2016 Yes INSTILL 1 U nivers % 1-28 GTT QD IN ity of ophthalmic 00:00: OU [place] drops 00 Medical Branch RESTASIS 2016- Yes INSTILL 1 Univ ers 0.05 % 1-28 GTT IN OU ity of ophthalmic 00:00: BID [place] drops 00 Medical Branch PATADAY 0.2 2015-07 Yes INSTILL 1 U nivers % 1-28 GTT QD IN ity of ophthalmic 00:00: OU [place] drops 00 Medical Branch RESTASIS 2016- Yes INSTILL 1 Univ ers 0.05 % 1-28 GTT IN OU ity of ophthalmic 00:00: BID [place] drops Medical Branch PATADAY 0.2 2015-07 Yes INSTILL 1 U nivers % 1-28 GTT QD IN ity of ophthalmic 00:00: OU [place] drops Medical Branch RESTASIS 2015-07 Yes INSTILL 1 Univ ers 0.05 % 1-28 GTT IN OU ity of ophthalmic 00:00: BID [place] drops Medical Branch PATADAY 0.2 2015-07 Yes INSTILL 1 U nivers % 1-28 GTT QD IN ity of ophthalmic 00:00: OU drops Medical Branch cycloSPORIN 2015-07 Yes Q.5D 2 (two) Met hodi E 1-[address] (RESTASIS) 00:00: day. Hospita 0.05 % 00 l ophthalmic emulsion trihexyphen 2015-07 Yes TK 1/2 T Un paresh idyl 2 mg 0-20 PO BID ity of tablet 00:00: [place] [facility] Branch trihexyphen 2015-07 Yes TK 1/2 T Un paresh idyl 2 mg 0-20 PO BID ity of tablet 00:00: [facility] Branch trihexyphen 2015-07 Yes TK 1/2 T Un paresh idyl 2 mg 0-20 PO BID ity of tablet 00:00: [facility] Branch trihexyphen 2015-07 Yes TK 1/2 T Un paresh idyl 2 mg 0-20 PO BID ity of tablet 00:00: [facility] Branch trihexyphen 2015-07 Yes TK 1/2 T Un paresh idyl 2 mg 0-20 PO BID ity of tablet 00:00: Medical Branch trihexyphen 2015-07 Yes TK 1/2 T Un paresh idyl 2 mg 0-20 PO BID ity of tablet 00:00: [facility] Branch trihexyphen 2015-07 Yes TK 1/2 T Un paresh idyl 2 mg 0-20 PO BID ity of tablet 00:00: [facility] Branch trihexyphen 2015-07 Yes TK 1/2 T Un paresh idyl 2 mg 0-20 PO BID ity of tablet 00:00: Medical Branch trihexyphen 2015-07 Yes TK 1/2 T Un paresh idyl 2 mg 0-20 PO BID ity of tablet 00:00: [place] [facility] trihexyphen 2015-07 Yes TK 1/2 T Un paresh idyl 2 mg 0-20 PO BID ity of tablet 00:00: [place] [facility] trihexyphen 2015- Yes TK 1/2 T Un paresh idyl 2 mg 0-20 PO BID ity of tablet 00:00: [place] [facility] trihexyphen 2015-07 Yes TK 1/2 T Un paresh idyl 2 mg 0-20 PO BID ity of tablet 00:00: [place] [facility] trihexyphen 2015- Yes TK 1/2 T Un paresh idyl 2 mg 0-20 PO BID ity of tablet 00:00: [place] [facility] trihexyphen 2015- Yes TK 1/2 T Un paresh idyl 2 mg 0-20 PO BID ity of tablet 00:00: [place] [facility] trihexyphen 2015-07 Yes TK 1/2 T Un paresh idyl 2 mg 0-20 PO BID ity of tablet 00:00: [place] [facility] trihexyphen 2015- Yes TK 1/2 T Un paresh idyl 2 mg 0-20 PO BID ity of tablet 00:00: [place] [facility] trihexyphen 2015- Yes TK 1/2 T Un paresh idyl 2 mg 0-20 PO BID ity of tablet 00:00: [place] [facility] trihexyphen 2015- Yes TK 1/2 T Un paresh idyl 2 mg 0-20 PO BID ity of tablet 00:00: [place] [facility] fluticasone 2014-07 Yes Univer s 50 0-22 ity of mcg/actuati 00:00: [place] on nasal 00 Medical spray Branch fluticasone 2014-07 Yes Univer s 50 0-22 ity of mcg/actuati 00:00: [place] on nasal 00 Medical spray Branch fluticasone 2014-07 Yes Univer s 50 0-22 ity of mcg/actuati 00:00: [place] on nasal 00 Medical spray Branch fluticasone 2014-07 Yes Univer s 50 0-22 ity of mcg/actuati 00:00: [place] on nasal 00 Medical spray Branch fluticasone 2014-07 Yes Univer s 50 0-22 ity of mcg/actuati 00:00: [place] on nasal 00 Medical spray Branch fluticasone 2014-07 Yes Univer s 50 0-22 ity of mcg/actuati 00:00: [place] on nasal 00 Medical spray Branch fluticasone 2014-07 Yes Univer s 50 0-22 ity of mcg/actuati 00:00: [place] on nasal 00 Medical spray Branch fluticasone 2014-07 Yes Univer s 50 0-22 ity of mcg/actuati 00:00: [place] on nasal 00 [facility] spray [facility] fluticasone 2014-07 Yes Univer s 50 0-22 ity of mcg/actuati 00:00: [place] on nasal 00 Medical spray Branch fluticasone 2014-07 Yes Univer s 50 0-22 ity of mcg/actuati 00:00: [place] on nasal 00 Medical spray Branch fluticasone 2014-07 Yes Univer s 50 0-22 ity of mcg/actuati 00:00: [place] on nasal 00 Medical spray Branch fluticasone 2014-07 Yes Univer s 50 0-22 ity of mcg/actuati 00:00: [place] on nasal 00 Medical spray Branch fluticasone 2014-07 Yes Univer s 50 0-22 ity of mcg/actuati 00:00: [place] on nasal 00 Medical spray Branch fluticasone 2014-07 Yes Univer s 50 0-22 ity of mcg/actuati 00:00: [place] on nasal 00 [facility] spray Branch fluticasone 2014-07 Yes Univer s 50 0-22 ity of mcg/actuati 00:00: [place] on nasal 00 Medical spray Branch fluticasone 2014-07 Yes Univer s 50 0-22 ity of mcg/actuati 00:00: [place] on nasal 00 Medical spray Branch fluticasone 2014-07 Yes Univer s 50 0-22 ity of mcg/actuati 00:00: [place] on nasal 00 Medical spray Branch fluticasone 2014-07 Yes Univer s 50 0-22 ity of mcg/actuati 00:00: [place] on nasal 00 Medical spray Branch lithium 2014-07 Yes Univers carbonate 0-12 ity of (LITHONATE) 00:00: [place] 300 mg 00 Medical capsule Branch lithium 2014-07 Yes Univers carbonate 0-12 ity of (LITHONATE) 00:00: [place] 300 mg 00 Medical capsule Branch lithium 2014-07 Yes Univers carbonate 0-12 ity of (LITHONATE) 00:00: [place] 300 mg 00 Medical capsule Branch lithium 2014-07 Yes Univers carbonate 0-12 ity of (LITHONATE) 00:00: [place] 300 mg 00 Medical capsule Branch lithium 2014-07 Yes Univers carbonate 0-12 ity of (LITHONATE) 00:00: [place] 300 mg 00 Medical capsule Branch lithium 2014-07 Yes Univers carbonate 0-12 ity of (LITHONATE) 00:00: [place] 300 mg 00 Medical capsule Branch lithium 2014-07 Yes Univers carbonate 0-12 ity of (LITHONATE) 00:00: [place] 300 mg 00 Medical capsule Branch lithium 2014-07 Yes Univers carbonate 0-12 ity of (LITHONATE) 00:00: [place] 300 mg 00 Medical capsule Branch lithium 2014-07 Yes Univers carbonate 0-12 ity of (LITHONATE) 00:00: [place] 300 mg 00 Medical capsule Branch lithium 2014-07 Yes Univers carbonate 0-12 ity of (LITHONATE) 00:00: [place] 300 mg 00 Medical capsule Branch lithium 2014-07 Yes Univers carbonate 0-12 ity of (LITHONATE) 00:00: [place] 300 mg 00 Medical capsule Branch lithium 2014-07 Yes Univers carbonate 0-12 ity of (LITHONATE) 00:00: [place] 300 mg 00 Medical capsule Branch lithium 2014-07 Yes Univers carbonate 0-12 ity of (LITHONATE) 00:00: [place] 300 mg 00 Medical capsule Branch lithium 2014-07 Yes Univers carbonate 0-12 ity of (LITHONATE) 00:00: [place] 300 mg 00 Medical capsule Branch lithium 2014-07 Yes Univers carbonate 0-12 ity of (LITHONATE) 00:00: [place] 300 mg 00 Medical capsule Branch lithium 2014-07 Yes Univers carbonate 0-12 ity of (LITHONATE) 00:00: [place] 300 mg 00 Medical capsule Branch lithium 2014-07 Yes Univers carbonate 0-12 ity of (LITHONATE) 00:00: [place] 300 mg 00 Medical capsule Branch lithium 2014-07 Yes Univers carbonate 0-12 ity of (LITHONATE) 00:00: [place] 300 mg 00 Medical capsule Branch DEXILANT 60 2014-07 Yes Univer s mg capsule 0-08 ity of 00:00: [place] 00 Medical Branch DEXILANT 60 2014-07 Yes Univer s mg capsule 0-08 ity of 00:00: [place] 00 [facility] DEXILANT 60 2014-07 Yes Univer s mg capsule 0-08 ity of 00:00: [place] 00 [facility] DEXILANT 60 2014-07 Yes Univer s mg capsule 0-08 ity of 00:00: [place] 00 [facility] Branch DEXILANT 60 2014-07 Yes Univer s mg capsule 0-08 ity of 00:00: [place] 00 [facility] DEXILANT 60 2014-07 Yes Univer s mg capsule 0-08 ity of 00:00: [place] 00 [facility] DEXILANT 60 2014-07 Yes Univer s mg capsule 0-08 ity of 00:00: [place] 00 [facility] DEXILANT 60 2014-07 Yes Univer s mg capsule 0-08 ity of 00:00: [place] 00 [facility] DEXILANT 60 2014-07 Yes Univer s mg capsule 0-08 ity of 00:00: [place] 00 [facility] DEXILANT 60 2014-07 Yes Univer s mg capsule 0-08 ity of 00:00: [place] 00 [facility] DEXILANT 60 2014-07 Yes Univer s mg capsule 0-08 ity of 00:00: [place] 00 [facility] DEXILANT 60 2014-07 Yes Univer s mg capsule 0-08 ity of 00:00: [place] 00 [facility] DEXILANT 60 2014-07 Yes Univer s mg capsule 0-08 ity of 00:00: [place] 00 [facility] DEXILANT 60 2014-07 Yes Univer s mg capsule 0-08 ity of 00:00: [place] 00 [facility] DEXILANT 60 2014-07 Yes Univer s mg capsule 0-08 ity of 00:00: [place] 00 [facility] DEXILANT 60 2014-07 Yes Univer s mg capsule 0-08 ity of 00:00: [place] 00 [facility] DEXILANT 60 2014-07 Yes Univer s mg capsule 0-08 ity of 00:00: [place] 00 [facility] DEXILANT 60 2014-07 Yes Univer s mg capsule 0-08 ity of 00:00: [place] 00 [facility] levothyroxi 2014-07 Yes Univer s ne 0-05 ity of (SYNTHROID) 00:00: [place] 88 mcg 00 Medical tablet Branch levothyroxi 2014-07 Yes Univer s ne 0-05 ity of (SYNTHROID) 00:00: [place] 88 mcg 00 Medical tablet Branch levothyroxi 2014-07 Yes Univer s ne 0-05 ity of (SYNTHROID) 00:00: [place] 88 mcg 00 Medical tablet Branch levothyroxi 2014-07 Yes Univer s ne 0-05 ity of (SYNTHROID) 00:00: [place] 88 mcg 00 Medical tablet Branch levothyroxi 2014-07 Yes Univer s ne 0-05 ity of (SYNTHROID) 00:00: [place] 88 mcg 00 Medical tablet Branch levothyroxi 2014-07 Yes Univer s ne 0-05 ity of (SYNTHROID) 00:00: [place] 88 mcg 00 Medical tablet Branch levothyroxi 2014-07 Yes Univer s ne 0-05 ity of (SYNTHROID) 00:00: [place] 88 mcg 00 Medical tablet Branch levothyroxi 2014-07 Yes Univer s ne 0-05 ity of (SYNTHROID) 00:00: [place] 88 mcg 00 Medical tablet Branch levothyroxi 2014-07 Yes Univer s ne 0-05 ity of (SYNTHROID) 00:00: [place] 88 mcg 00 Medical tablet Branch levothyroxi 2014-07 Yes Univer s ne 0-05 ity of (SYNTHROID) 00:00: [place] 88 mcg 00 Medical tablet Branch levothyroxi 2014-07 Yes Univer s ne 0-05 ity of (SYNTHROID) 00:00: [place] 88 mcg 00 Medical tablet Branch levothyroxi 2014-07 Yes Univer s ne 0-05 ity of (SYNTHROID) 00:00: [place] 88 mcg 00 Medical tablet Branch levothyroxi 2014-07 Yes Univer s ne 0-05 ity of (SYNTHROID) 00:00: [place] 88 mcg 00 Medical tablet Branch levothyroxi 2014-07 Yes Univer s ne 0-05 ity of (SYNTHROID) 00:00: [place] 88 mcg 00 Medical tablet Branch levothyroxi 2014-07 Yes Univer s ne 0-05 ity of (SYNTHROID) 00:00: [place] 88 mcg 00 Medical tablet Branch levothyroxi 2014-07 Yes Univer s ne 0-05 ity of (SYNTHROID) 00:00: [place] 88 mcg 00 Medical tablet Branch levothyroxi 2014-07 Yes Univer s ne 0-05 ity of (SYNTHROID) 00:00: [place] 88 mcg 00 Medical tablet Branch levothyroxi 2014-07 Yes Univer s ne 0-05 ity of (SYNTHROID) 00:00: [place] 88 mcg 00 Medical tablet Branch Olanzapine Olanzapine Yes Stephani 1 tablet Common [facility] Vital Signs Vital Name Observation Time Observation Value Comments Source Systolic blood 2020-05-29 20:24:00 117 mm[Hg] Univer sity of [facility] Diastolic blood 2020-05-29 20:24:00 72 mm[Hg] Unive rsity of pressure [facility] Heart rate 2020-05-29 20:24:00 61 /min [facility] Body temperature 2020-05-29 20:24:00 36.89 Dione Univ ersity [facility] Body height 2020-05-29 20:24:00 157.5 cm [facility] Body weight 2020-05-29 20:24:00 75.252 kg [facility] BMI 2020-05-29 20:24:00 30.34 kg/m2 [facility] [place] [facility] Oxygen saturation in 2020-05-29 20:24:00 97 /min University of Arterial blood by [employer] Pulse oximetry Branch Systolic blood 2020-05-29 20:24:00 117 mm[Hg] Univer sity of pressure [facility] Diastolic blood 2020-05-29 20:24:00 72 mm[Hg] Unive rsity of pressure [facility] Heart rate 2020-05-29 20:24:00 61 /min [facility] Body temperature 2020-05-29 20:24:00 36.89 Dione Univ [facility] Body height 2020-05-29 20:24:00 157.5 cm [facility] Body weight 2020-05-29 20:24:00 75.252 kg [facility] [place] [facility] BMI 2020-05-29 20:24:00 30.34 kg/m2 [facility] Oxygen saturation in 2020-05-29 20:24:00 97 /min University of Arterial blood by [employer] Pulse oximetry Branch Systolic blood 2020-05-07 14:10:00 105 mm[Hg] Univer sity of pressure [facility] Diastolic blood 2020-05-07 14:10:00 71 mm[Hg] Unive rsity of pressure [facility] Heart rate 2020-05-07 14:10:00 76 /min [facility] [place] [facility] Body weight 2020-05-07 14:10:00 74.844 kg [facility] [place] [facility] BMI 2020-05-07 14:10:00 29.70 kg/m2 [facility] [place] [facility] Systolic blood 2020-04-27 20:38:00 106 mm[Hg] Univer sity of pressure [facility] Diastolic blood 2020-04-27 20:38:00 69 mm[Hg] Unive rsity of pressure [facility] Heart rate 2020-04-27 20:38:00 69 /min [facility] [place] [facility] Body height 2020-04-27 20:38:00 158.8 cm [facility] Body weight 2020-04-27 20:38:00 74.844 kg [facility] [place] [facility] BMI 2020-04-27 20:38:00 29.70 kg/m2 [facility] Body height 2020-04-10 15:05:00 158.8 cm [facility] Body weight 2020-04-10 15:05:00 74.844 kg [facility] [place] [facility] BMI 2020-04-10 15:05:00 29.70 kg/m2 [facility] Body height 2019-11-28 18:11:00 160 cm [facility] [place] [facility] Body weight 2019-11-28 18:11:00 72.576 kg [facility] [place] [facility] BMI 2019-11-28 18:11:00 28.34 kg/m2 [facility] Body height 2019-11-07 18:17:00 160 cm [facility] [place] [facility] Body weight 2019-11-07 18:17:00 67.586 kg [facility] BMI 2019-11-07 18:17:00 26.39 kg/m2 [facility] Systolic (mm Hg) 2021-11-24 16:03:00 Elio Peterson Diastolic (mm Hg) 2021-11-24 16:03:00 Stefani grissom [facility] Heart Rate 2021-11-24 16:03:00 [facility] 2021-11-24 16:03:00 152.4 cm [facility] Weight 2021-11-24 16:03:00 [facility] BMI Calculated 2021-11-24 16:03:00 Memori al [facility] Systolic (mm Hg) 2021-08-27 16:22:00 Elio rial [facility] Diastolic (mm Hg) 2021-08-27 16:22:00 Mem orial [facility] Heart Rate 2021-08-27 16:22:00 [facility] Respitory Rate 2021-08-27 16:22:00 [facility]ori al [facility] Height 2021-08-27 16:22:00 154.94 cm [facility] Weight 2021-08-27 16:22:00 [facility] BMI Calculated 2021-08-27 16:22:00 Memori al [facility] Systolic (mm Hg) 2021-05-25 17:35:00 Elio rial [facility] Diastolic (mm Hg) 2021-05-25 17:35:00 Mem orial [facility] Heart Rate 2021-05-25 17:35:00 [facility] Respitory Rate 2021-05-25 17:35:00 Memori al [facility] Height 2021-05-25 17:35:00 154.94 cm [facility] Weight 2021-05-25 17:35:00 [facility] BMI Calculated 2021-05-25 17:35:00 [facility] Systolic (mm Hg) 2021-03-25 16:21:00 Elio rial [facility]ill[facility] Diastolic (mm Hg) 2021-03-25 16:21:00 Mem orial [facility] Heart Rate 2021-03-25 16:21:00 [facility] Respitory Rate 2021-03-25 16:21:00 Memori al [facility] Height 2021-03-25 16:21:00 152.4 cm [facility] Weight 2021-03-25 16:21:00 [facility] BMI Calculated 2021-03-25 16:21:00 Memori [facility] Systolic (mm Hg) 2021-02-11 16:05:00 Elio rial [facility] Diastolic (mm Hg) 2021-02-11 16:05:00 Mem orial [facility] Heart Rate 2021-02-11 16:05:00 [facility] Respitory Rate 2021-02-11 16:05:00 Memori al [facility] Height 2021-02-11 16:05:00 152.4 cm [facility] Weight 2021-02-11 16:05:00 [facility] BMI Calculated 2021-02-11 16:05:00 Viktoriya al [facility] Systolic (mm Hg) 2021-01-07 14:14:00 Elio ramirez [facility] Diastolic (mm Hg) 2021-01-07 14:14:00 Mem orial [facility] Heart Rate 2021-01-07 14:14:00 [facility] Respitory Rate 2021-01-07 14:14:00 Memori al [facility] Height 2021-01-07 14:14:00 154.94 cm [facility] Weight 2021-01-07 14:14:00 [facility] BMI Calculated 2021-01-07 14:14:00 [facility] Procedures Procedure Date / Time Performing Clinician Source Performed EXTERNAL PROVIDER 2020-05-12 05:01:00 Doctor Unassigned, No Univ [facility] RECORDS Name Medical Branch REFERRAL- 2019-11-20 05:01:00 Doctor Unassigned, No Univer [facility] REQUEST/RESPONSE Name [facility] XR ANKLE <3 VW RIGHT 2019-11-07 18:40:[address] [facility] Spinal cord [facility] stimulation<sup>1</sup> Hysterectomy [facility] Tubal ligation [facility] Plan of Care Planned Activity Planned Date Details Comments Source Future Scheduled 2022-03-15 HEPATITIS B VACCINES Met [facility] Test 06:42:20 (1 of 3 - 3-dose series) [code = HEPATITIS B VACCINES (1 of 3 - 3-dose series)] Future Scheduled 2022-03-15 COVID-19 VACCINE (#1) [facility] Test 06:42:20 [code = COVID-19 VACCINE (#1)] Future Scheduled 2022-03-15 Hepatitis C screening [facility] Test 06:42:20 (procedure) [code = 516532526] Future Scheduled 2022-03-15 BREAST CANCER [facility] Test 06:42:20 SCREENING [code = BREAST CANCER SCREENING] Future Scheduled 2022-03-15 COLONOSCOPY SCREENING [facility] Test 06:42:20 [code = COLONOSCOPY SCREENING] Future Scheduled 2022-03-15 SHINGLES VACCINES (1 Met [facility] Test 06:42:20 of 2) [code = SHINGLES VACCINES (1 of 2)] Future Scheduled 2022-03-15 65+ [facility] Test 06:42:20 VACCINE (1 - PCV) [code = 65+ PNEUMOCOCCAL VACCINE (1 - PCV)] Future Scheduled 2022-03-15 INFLUENZA VACCINE [facility] Test 06:42:20 [code = INFLUENZA VACCINE] Encounters Start End Encounter Admission Attending Care Care Encounter Source Date/Time Date/Time Type Type Clinicians Facility Department ID 2021-12-03 Outpatient Marzena, STEHSAN STLC [id number] Common 11:50:01 Stephani [facility] 2021-08-11 Outpatient Marzena STEHSAN STLC [id number] Common 11:20:27 Stephani [facility] 2022-05-31 2022-05-31 Outpatient MHIE IE [id number] Memoria 11:15:00 11:15:00 06 l [facility] 2022-03-16 2022-03-16 ambulatory STLMLC STLC [id number] Common 00:00:00 00:00:00 [facility] 2022-01-12 2022-01-12 Deena Foster 1.2.840.1 [id number] Methodi 00:00:00 00:00:[address] [facility] 3.430.2.7 Hospit [facility] .3.961253 l .8 2021-12-08 2021-12-08 ambulatory STLMLC STLMLC [id number] Common 00:00:00 00:00:00 [facility] 2021-12-08 2021-12-08 ambulatory STLMLC STLMLC [id number] Common 00:00:00 00:00:00 [facility] 2021-12-06 2021-12-06 ambulatory STLMLC STLMLC [id number] Common 00:00:00 00:00:00 [facility] 2021-12-06 2021-12-06 Kylie Vale 1.2.840.1 [id number] Methodi 00:00:00 00:00:[address] 3.430.2.7 Hospit a .3.225345 l .8 2021-12-03 2021-12-03 Deena Foster 1.2.840.1 [id number] Methodi 00:00:00 00:00:[address] [facility] 3.430.2.7 Hospit a Corey .3.355806 l .8 2021-11-24 2021-11-25 Outpatient nullFlavo MNA [id number] Memoria 16:15:00 04:59:59 r Neurology 05 michelle Peterson 2021-11-24 2021-11-24 Outpatient STEVE TenorioSCHYASMIN [id number] 11:15:00 23:59:59 Brigido Corona 2021-11-24 2021-11-24 Outpatient MHIE MHIE [id number] Memoria 11:15:00 11:15:00 05 michelle Peterson 2021-11-15 2021-11-15 ambulatory STLMLC STLMLC [id number] Common 00:00:00 00:00:00 [facility] 2021-10-05 2021-10-05 Deena Foster 1.2.840.1 [id number] Methodi 00:00:00 00:00:[address] [facility] 3.430.2.7 Hospit a Corey .3.528171 l .8 2021-09-07 2021-09-07 ambulatory STLMLC STLMLC [id number] Common 00:00:00 00:00:00 [facility] 2021-09-07 2021-09-07 ambulatory STLMLC STLMLC [id number] Common 00:00:00 00:00:00 [facility] 2021-08-27 2021-08-28 Outpatient nullFlavo MNA [id number] Memoria 16:45:00 05:59:59 r Neurology 04 l Samia Peterson 2021-08-27 2021-08-27 Outpatient STEVE Tenorio MISCHER [id number] 10:45:00 23:59:59 Brigido 04 Cj 2021-08-27 2021-08-27 Outpatient MHIE MHIE [id number] Memoria 10:45:00 10:45:00 04 michelle Peterson 2021-07-19 2021-07-19 ambulatory STLMLC STLMLC [id number] Common 00:00:00 00:00:00 [facility] 2021-07-19 2021-07-19 ambulatory STLMLC STLMLC [id number] Common 00:00:00 00:00:00 [facility] 2021-06-01 2021-06-01 ambulatory STLMLC STLMLC [id number] Common 00:00:00 00:00:00 [facility] 2021-05-25 2021-05-26 Outpatient nullFlavo MNA [id number] Memoria 17:45:00 05:59:59 r Neurology 03 michelle Gracia Zillah 2021-05-25 2021-05-25 Outpatient MAR TenorioSCHER MHMISCHER [id number] 11:45:00 23:59:59 Brigido 03 Cj 2021-05-25 2021-05-25 Outpatient MHIE MHIE [id number] Memoria 11:45:00 11:45:00 03 michelle Peterson 2021-03-29 2021-03-29 Outpatient STLMLC STLMLC [id number] Common 00:00:00 00:00:00 [facility] 2021-03-25 2021-03-26 Outpatient nullFlavo MNA [id number] Memoria 16:30:00 04:59:59 r Neurology 02 michelle Coleann 2021-03-25 2021-03-25 Outpatient MAR TenorioSCHER MHMISCHER [id number] 11:30:00 23:59:59 Brigido Cj 2021-03-25 2021-03-25 Outpatient MHIE MHIE [id number] Memoria 11:30:00 11:30:00 02 michelle Peterson 2021-03-05 2021-03-05 Outpatient STLMLC STLMLC [id number] Common 00:00:00 00:00:00 [facility] 2021-03-04 2021-03-04 Outpatient STLMLC STLMLC [id number] Common 00:00:00 00:00:00 [facility] 2021-02-11 2021-02-12 Outpatient nullFlavo MNA [id number] Memoria 16:30:00 04:59:59 r Neurology 01 l Samia Peterson 2021-02-11 2021-02-11 Outpatient RACHEL TenorioMISCHER MHMISCHER [id number] 11:30:00 23:59:59 Brigido Cj 2021-02-11 2021-02-11 Outpatient MHIE MHIE [id number] Memoria 11:30:00 11:30:00 01 michelle Peterson 2021-01-26 2021-01-26 Outpatient STLMLC STLMLC [id number] Common 00:00:00 00:00:00 [facility] 2021-01-25 2021-01-25 Outpatient STLMLC STLMLC [id number] Common 00:00:00 00:00:00 [facility] 2021-01-07 2021-01-08 Outpatient nullFlavo MNA [id number] Memoria 14:30:00 04:59:59 r Neurology 00 l Samia Peterson 2021-01-07 2021-01-07 Outpatient MAR TenorioSCHER MHMISCHER [id number] 09:30:00 23:59:59 Brigido Cj 2020-12-03 2020-12-03 Outpatient STLMLC STLMLC [id number] Common 00:00:00 00:00:00 [facility] 2020-12-02 2020-12-02 Outpatient STLMLC STLMLC [id number] Common 00:00:00 00:00:00 [facility] 2020-12-02 2020-12-02 Outpatient STLMLC STLMLC [id number] Common 00:00:00 00:00:00 [facility] 2020-10-12 2020-10-12 Outpatient STLMLC STLMLC [id number] Common 00:00:00 00:00:00 [facility] 2020-07-21 2020-07-21 Telephone Susi [facility] 1.2.840.114 [id number] 00:00:00 00:00:00 Sami [facility] 350.1.13.10 Surgical 4.2.7.2.686 Specialti [id number] es [address] [place] 2020-07-21 2020-07-21 Telephone Susi [facility] 1.2.840.114 [id number] Univers 00:00:00 00:00:00 Sami [facility] 350.1.13.10 it y of Surgical 4.2.7.2.686 Ari as Specialti [id number] Pr dical es 198 [facility] 2020-06-18 2020-06-18 Outpatient STLMLC STLMLC [id number] Common 00:00:00 00:00:00 [facility] 2020-05-29 2020-05-29 Office [facility] 1.2.840.114 [id number] [facility] 13:53:33 14:23:33 Visit Health 350.1.13.10 it y of Cancer 4.2.7.2.686 [facility] - [id number] Med [address] 2020-05-29 2020-05-29 Office [facility] 1.2.840.114 [id number] 13:53:33 14:23:33 Visit Health 350.1.13.10 Cancer 4.2.7.2.686 [place] [id number] [place] [id number] 2020-05-29 2020-05-29 Outpatient R [facility] [id number] Univers 13:15:00 13:15:[id number] [facility] [place] [place] 2020-05-29 2020-05-29 Outpatient R [facility] [id number] [facility] 13:15:00 13:15:[address] [facility] [place] 2020-05-22 2020-05-22 Outpatient R [facility] [id number] Univers 10:30:00 10:30:[address] [facility] [place] 2020-05-22 2020-05-22 Outpatient R [address] [facility] [id number] Univers 10:30:00 10:30:00 ity of [facility] 2020-05-14 2020-05-[address] [id number] Univers 14:15:00 14:15:00 LOLY [id number] ity of [facility] 2020-05-14 2020-05-[address] [facility] [id number] Univers 14:15:00 14:15:[address] [facility] [place] 2020-05-12 2020-05-12 Orders Doctor LOLY 1.2.840.114 [id number] Univers 00:00:00 00:00:00 Only Unassigned, ADARSH 350.1.13.10 ity [place] [facility] 4.2.7.2.686 Ari as [id number] [address] 2020-05-07 2020-05-07 [facility] 1.2.099.099 [id number] Univers 09:00:31 09:34:[address] [facility] 350.1.13.10 it y of Surgical 4.2.7.2.686 Ari as Specialti [id number] Me dical es 198 [facility] 2020-05-07 2020-05-07 [facility] [id number] Univers 09:15:00 09:15:[id number] ity [facility] [place] 2020-05-07 2020-05-07 [facility] [id number] Univers 09:15:00 09:15:[address] [facility] [place] 2020-05-01 2020-05-01 Outpatient STLMLC STLMLC [id number] Common 00:00:00 00:00:00 [facility] 2020-04-27 2020-04-27 [facility] 1.2.415.085 [id number] Univers 15:23:39 15:53:55 Visit Sami [facility] 350.1.13.10 it y of Surgical 4.2.7.2.686 Ari as Specialti [id number] Me dical es 198 [facility] 2020-04-27 2020-04-27 [facility] [id number] Univers 15:30:00 15:30:[id number] ity [facility] [place] 2020-04-27 2020-04-[address] [facility] [id number] Univers 15:30:00 15:30:00 [facility] 2020-04-10 2020-04-10 [facility] 1.2.840.114 [id number] Univers 10:22:53 23:59:00 Encounter Sami Phan [facility] 350.1.13.10 ity of Surgical 4.2.7.2.686 Ari as Specialti [id number] Me dical es 809 [facility] 2020-04-10 2020-04-10 Office Susi [facility] 1.2.514.060 [id number] Univers 09:50:14 10:39:15 Visit Sami Phan [facility] 350.1.13.10 it y of Surgical 4.2.7.2.686 Ari as Specialti [id number] Me dical es 198 [facility] 2020-04-10 2020-04-10 [facility] [id number] Univers 10:15:00 10:15:[address] SAMI [id number] ity [facility] [place] 2020-04-10 2020-04-10 [facility] [id number] Univers 10:15:00 10:15:00 [facility] 2020-04-10 2020-04-10 [facility] 1.2.840.114 [id number] Univers 00:00:00 00:00:00 Sami Phan [facility] 350.1.13.10 it y of Surgical 4.2.7.2.686 Ari as Specialti [id number] Pr dical es 198 [facility] 2020-04-08 2020-04-08 [facility] [id number] Univers 15:30:00 15:30:00 [facility] [id number] [facility] 2020-03-30 2020-03-30 [facility] [id number] Common 13:06:00 13:06:00 [facility] 2020-03-30 2020-03-30 Outpatient [facility] [id number] Common 10:00:00 10:00:00 t [facility] [address] [facility] 2020-03-25 2020-03-25 [facility] [id number] Common 10:00:00 10:00:[address] [facility] 2020-02-26 2020-02-26 [facility] [id number] Common 09:40:00 09:40:00 t [facility] [address] [facility] 2020-02-20 2020-02-20 [facility] [id number] Common 08:40:00 08:40:00 t [facility] [address] [facility] 2020-01-16 2020-01-16 [facility] [id number] Common 16:20:00 16:20:00 t [facility] [address] [facility] 2019-12-23 2019-12-23 [facility] [id number] Common 14:03:00 14:03:00 t [facility] [address] [facility] 2019-11-28 2019-11-28 Office Sami Goldman [facility] [id number] Univers 12:59:10 13:29:19 Visit Sharon [facility] [id number] ity of Surgical [id number] Ari as Specialti [id number] [address] 2019-11-28 2019-11-[address] [facility] [id number] Univers 11:00:00 11:00:00 SHARON [id number] [facility] 2019-11-28 2019-11-[address] [facility] [id number] Univers 11:00:00 11:00:00 SHARON [facility] 2019-11-20 2019-11-20 Outpatient Preeti Álvarezt [id number] Common 10:40:00 10:40:00 t [facility] [address] [facility] 2019-11-20 2019-11-20 Orders Doctor LOLY [id number] Univers 00:00:00 00:00:00 Only Unassigned, ADARSH [id number] ity of [facility] [id number] Ari as [phone] [address] 2019-11-07 2019-11-07 [facility] [id number] Univers 13:40:09 23:59:[address] [facility] [place] [place] 2019-11-07 2019-11-07 Hospital [facility] [id number] Univers 13:40:00 23:59:00 Encounter Sharon Le [facility] [id number] ity of Surgical [id number] Ari as Specialti [phone] Pr dical es 809 [facility] 2019-11-07 2019-11-07 Outpatient [facility] [id number] Univers 13:45:00 13:45:[address]ARON [id number] ity [facility] [place] [place] 2019-11-07 2019-11-07 Office [facility] [id number] Univers 13:16:02 13:31:02 Visit Sharon Le [facility] [id number] it y of Surgical [id number] Ari as Specialti [phone] Pr dical es 198 [facility] 2019-05-09 2019-05-[address] [facility] [id number] Univers 11:00:00 10:51:[address] [facility] [place] [place] 2019-04-25 2019-04-[address] [facility] [id number] Univers 13:00:00 13:17:[address] [facility] [place] [place] 2019-04-12 2019-04-12 Outpatient Preeti Thornton [id number] Common 08:40:00 08:40:00 [facility] [address] [facility] 2019-04-01 2019-04-01 Outpatient Preeti Thornton [id number] Common 13:13:00 13:13:[address] [facility] 2019-03-27 2019-03-27 [facility] [id number] Common 16:30:00 16:30:[address] [facility] 2019-03-19 2019-03-19 [facility] [id number] Common 13:35:00 13:35:[address] [facility] 2019-03-15 2019-03-15 [facility] [id number] Common 16:10:00 16:10:[address] [facility] 2019-03-11 2019-03-11 [facility] [id number] Common 08:23:00 08:23:[address] [facility] 2019-01-31 2019-01-31 [facility] [id number] Common 15:49:00 15:49:[address] [facility] 2019-01-30 2019-01-30 [facility] [id number] Common 08:40:00 08:40:[address] [facility] 2019-01-14 2019-01-14 [facility] [id number] Common 08:40:00 08:40:[address] [facility] 2018-11-20 2018-11-20 [facility] [id number] Common 13:30:00 13:30:[address] [facility] 2018-08-27 2018-08-27 [facility] [id number] Common 09:30:00 09:30:[address] [facility] 2018-04-23 2018-04-23 [facility] [id number] Common 08:30:00 08:30:[address] [facility] 2018-04-10 2018-04-10 [facility] [id number] Common 11:30:00 11:30:00 t [facility] [address] [facility] 2018-04-02 2018-04-02 [facility] [id number] Common 14:12:00 14:12:00 t [facility] [address] [facility] 2018-04-02 2018-04-02 [place]patient [place] [facility] [id number] Common 10:55:00 10:55:00 t Specialty/U Sp yanni Specialty rology - [facility] 2018-03-30 2018-03-30 [place]patient [place] [place] [id number] Common 16:34:00 16:34:00 t Specialty/U Sp yanni Specialty rology - [facility] 2018-03-29 2018-03-29 Outpatient [place] [id number] Common 14:40:00 14:40:00 t [facility] [address] [facility] it Road [facility] 2017-12-14 2017-12-14 Outpatient [place] [facility] [place] [id number] Common 10:00:00 10:00:00 [facility] Results Test Description Test Time Test Comments Results Result Sourc e Comments XR ANKLE <3 VW 2019-11-07 No sign of [facility] RIGHT 19:02:14 fracture or [place] [facility] ankle mortise well maintained
[2022-04-03] MEDS ORDERED: LEVALBUTEROL 1.25 MG/3 ML NEB ONE (13:18)
--- NOTE | 2022-04-03 13:46 | RAD REPORT ---
EXAM DESCRIPTION: RAD - Chest Single View - 04/03/2022 1:40 pm CLINICAL HISTORY: COUGH COMPARISON: Two view chest 12/08/2021 TECHNIQUE: AP portable chest image was obtained 04/03/2022 1:40 pm . FINDINGS: Lungs are clear. Heart and vasculature are normal. No measurable pleural effusion and no p neumothorax. No acute bony abnormality seen. No acute aortic findings suspected. IMPRESSION: No acute cardiopulmonary process. No significant change from comparison study.
[2022-04-03] MEDS ORDERED: CEFTRIAXONE 1000 MG/VIAL ONE (15:44)
[2022-04-03] MEDS ORDERED: dexAMETHasone 4 MG/ML VIAL ONE (15:44)
[2022-04-03] MEDS ORDERED: LIDOCAINE 1% MPF 2 ML AMPULE ONE (15:44)
--- NOTE | 2022-04-03 15:58 | EDPHYS ---
Physician Documentation [facility] Name: Elyssa Olivo Age: 71 yrs Sex: Female : 1950 Arrival Date: 04/03/2022 Time: 12:10 Bed 10 Private MD: ED Physician Damon Dorado HPI: 04/03 12:21 This 71 yrs old Female presents to ER via Ambulatory with complaints of Cough, covid jmm symptoms. 12:21 The patient or guardian reports cough. Onset: The symptoms/episode began/occurred jmm gradually, 5 day(s) ago. Modifying factors: The symptoms are alleviated by nothing, the symptoms are aggravated by nothing. Associated signs and symptoms: Pertinent positives: sore throat. It is unknown whether or not the patient has had similar symptoms in the past. Is a 71-year-old female with history of GERD, hypothyroidism, bipolar the presents emerged part with complaints of sore throat, productive cough, shortness of breath. Symptoms began this past Monday. Historical: - Allergies: 12:19 Demerol; iw 12:19 GABAPENTIN; iw 12:19 Valium; iw - PMHx: 12:19 Back pain; Bipolar disorder; GERD; Hypothyroidism; iw - PSHx: 12:19 hysterectomy; iw - Immunization history:: Client reports receiving the 2nd dose of the Covid vaccine. - Social history:: Smoking status: Patient denies any tobacco usage or history of. ROS: 12:21 Constitutional: Negative for fever, chills, and weight loss. jmm 12:21 ENT: Positive for sore throat. 12:21 Respiratory: Positive for cough, shortness of breath. 12:21 All other systems are negative. Exam: 12:21 Constitutional: This is a well developed, well nourished patient who is awake, alert, jmm and in no acute distress. Head/Face: atraumatic. Eyes: EOMI, no conjunctival erythema appreciated 12:21 Neck: Trachea midline, Supple Chest/axilla: Normal chest wall appearance and motion. Cardiovascular: Regular rate and rhythm. No edema appreciated Respiratory: Normal respirations, no respiratory distress appreciated Abdomen/GI: Non distended Back: Normal ROM Skin: General appearance color normal MS/ Extremity: Moves all extremities, no obvious deformities appreciated, no edema noted to the lower extremities Neuro: Awake and alert Psych: Behavior is normal, Mood is normal, Patient is cooperative and pleasant 12:21 ENT: Posterior pharynx: erythema, that is mild. Vital Signs: 12:18 BP 122 / 74; Pulse 81; Resp 20; Temp 98.7; Pulse Ox 100% on R/A; Weight 68.95 kg; iw Height 5 ft. 1 in. (154.94 cm); Pain 5/10; 12:18 Body Mass Index 28.72 (68.95 kg, 154.94 cm) iw MDM: 12:21 Patient medically screened. [facility] 15:14 Data reviewed: vital signs, nurses notes. Counseling: I had a detailed discussion with [facility] the patient and/or guardian regarding: the historical points, exam findings, and any diagnostic results supporting the discharge/admit diagnosis, lab results, radiology results, the need for outpatient follow up, to return to the emergency department if symptoms worsen or persist or if there are any questions or concerns that arise at home. 04/03 12:21 Order name: SARS-COV-2 RT PCR (Document "Date of Onset" if Symptomatic); Complete Time: [facility] 13:31 04/03 12:21 Order name: Influenza Screen (a \\T\\ B); Complete Time: 13:16 [facility] 04/03 12:21 Order name: Strep; Complete Time: 13:16 [facility] 04/03 13:05 Order name: Chest Single View XRAY; Complete Time: 13:52 [facility] 04/03 13:16 Order name: Throat Culture EDMS Administered Medications: 13:11 Drug: Xopenex (levalbuterol) (3) 1.25 mg Route: Inhalation; ss 14:04 Follow up: Response: Marked relief of symptoms; Marked relief of symptoms, pt reports ss feeling better. 15:46 Drug: Decadron (dexamethasone) 10 mg Route: IM; Site: left gluteus; ss 16:08 Follow up: Response: No adverse reaction ss 15:46 Drug: Rocephin (cefTRIAXone) 1000 mg Route: IM; Site: right gluteus; ss 16:08 Follow up: Response: No adverse reaction ss Disposition: 17:58 Co-signature as Attending Physician, Damon KHOURY was immediately available onsite ms3 in the emergency department for consultation in the care of the patient. Disposition Summary: 04/03/22 15:58 Discharge Ordered Location: Home jm Condition: Stable jm Diagnosis - Acute pharyngitis, unspecified jmm - Cough jm Followup: jmm - With: Private Physician - When: 2 - 3 days - Reason: Recheck today's complaints, Continuance of care, Re-evaluation by your physician Discharge Instructions: - Discharge Summary Sheet jmm - Pharyngitis jmm - Cough, Adult jmm Forms: - Medication Reconciliation Form [facility] - Thank You Letter [facility] - Antibiotic Education [facility] - Prescription Opioid Use [facility] Prescriptions: - albuterol sulfate 90 mcg/actuation Inhalation HFA aerosol inhaler - inhale 2 puff by INHALATION route every 4 hours; 1 Pump; Refills: 0, Product [facility] Selection Permitted - cefdinir 300 mg Oral capsule - take 1 capsule by ORAL route every 12 hours for 10 days; 20 capsule; Refills: jmm 0, Product Selection Permitted Signatures: Dispatcher [employer] EDVikram Cota PA PA jmm Williams, Irene, RN RN Karla Magaña RN RN ss Sims, Marcus, DO DO ms3
--- NOTE | 2022-04-03 15:58 | ER ---
Nurse's Notes [facility] Name: Elyssa Olivo Age: 71 yrs Sex: Female : 1950 Arrival Date: 04/03/2022 Time: 12:10 Bed 10 Private MD: Diagnosis: Acute pharyngitis, unspecified;Cough Presentation: 04/03 12:18 Chief complaint: Persistent cough, headache, body aches, and sore throat x 4 days. Risk iw Assessment: Do you want to hurt yourself or someone else? Patient reports no desire to harm self or others. Onset of symptoms was March 30, 2022. 12:18 Acuity: PRIMO 4 iw 12:18 Method Of Arrival: Ambulatory iw 12:20 Coronavirus screen: Client presents with at least one sign or symptom that may indicate iw coronavirus-19. Standard/surgical mask placed on the client. Provider contacted for isolation considerations. Ebola Screen: No symptoms or risks identified at this time. Initial Sepsis Screen: Does the patient meet any 2 criteria? No. Patient's initial sepsis screen is negative. Does the patient have a suspected source of infection? No. Patient's initial sepsis screen is negative. Historical: - Allergies: 12:19 Demerol; iw 12:19 GABAPENTIN; iw 12:19 Valium; iw - PMHx: 12:19 Back pain; Bipolar disorder; GERD; Hypothyroidism; iw - PSHx: 12:19 hysterectomy; iw - Immunization history:: Client reports receiving the 2nd dose of the Covid vaccine. - Social history:: Smoking status: Patient denies any tobacco usage or history of. Screenin:42 Abuse screen: Denies threats or abuse. Denies injuries from another. Nutritional ss screening: No deficits noted. Tuberculosis screening: Never had TB. Fall Risk None identified. Assessment: 12:42 General: Appears in no apparent distress. comfortable, well groomed, Behavior is calm, ss cooperative. General: Reports feeling ill for x 4 days. Denies fever. Pain: Complains of pain in throat, generalized body aches Pain currently is 5 out of 10 on a pain scale. Neuro: Level of Consciousness is awake, alert, obeys commands, Oriented to person, place, time, situation, Speech is normal, Facial symmetry appears normal, Pupils are PERRLA. Cardiovascular: Capillary refill < 3 seconds is brisk in bilateral. Respiratory: Reports cough that is dry, persistent since x 4 days Denies shortness of breath. : No signs and/or symptoms were reported regarding the genitourinary system. EENT: Throat is pink. Derm: Skin is pink, warm \\T\\ dry. 14:04 Reassessment: Patient appears in no apparent distress at this time. Patient and/or ss family updated on plan of care and expected duration. Pain level reassessed. Patient states feeling better. Patient states symptoms have improved. 14:04 Reassessment: awaiting disposition. ss 14:35 Reassessment: Patient appears in no apparent distress at this time. Patient and/or ss family updated on plan of care and expected duration. Pain level reassessed. Awaiting disposition. 15:52 Reassessment: Patient appears in no apparent distress at this time. awaiting shot time. ss Vital Signs: 12:18 BP 122 / 74; Pulse 81; Resp 20; Temp 98.7; Pulse Ox 100% on R/A; Weight 68.95 kg; iw Height 5 ft. 1 in. (154.94 cm); Pain 5/10; 12:18 Body Mass Index 28.72 (68.95 kg, 154.94 cm) iw ED Course: 12:10 Patient arrived in ED. am2 12:12 Vikram Belle PA is PHCP. [facility] 12:12 Damon Dorado DO is Attending Physician. m 12:19 Triage completed. iw 12:19 Arm band placed on. iw 12:39 Kay Naranjo, RN is Primary Nurse. iw 12:42 Patient has correct armband on for positive identification. Bed in low position. ss 12:42 Strep Sent. ss 12:42 Influenza Screen (a \\T\\ B) Sent. ss 12:42 SARS-COV-2 RT PCR (Document "Date of Onset" if Symptomatic) Sent. ss 13:42 Chest Single View XRAY In Process Unspecified. EDMS 16:08 No provider procedures requiring assistance completed. Patient did not have IV access ss during this emergency room visit. Administered Medications: 13:11 Drug: Xopenex (levalbuterol) (3) 1.25 mg Route: Inhalation; ss 14:04 Follow up: Response: Marked relief of symptoms; Marked relief of symptoms, pt reports ss feeling better. 15:46 Drug: Decadron (dexamethasone) 10 mg Route: IM; Site: left gluteus; ss 16:08 Follow up: Response: No adverse reaction ss 15:46 Drug: Rocephin (cefTRIAXone) 1000 mg Route: IM; Site: right gluteus; ss 16:08 Follow up: Response: No adverse reaction ss Medication: 12:42 VIS not applicable for this client. ss Outcome: 15:58 Discharge ordered by . dia 16:08 Discharged to home ambulatory. ss 16:08 Condition: improved 16:08 Discharge instructions given to patient, Instructed on discharge instructions, follow up and referral plans. medication usage, Demonstrated understanding of instructions, follow-up care, medications, Prescriptions given X 2. 16:09 Patient left the ED. ss Signatures: Dispatcher [employer] EDMS Vikram Belle PA PA jmm Williams, Irene, RN Karla Funk RN RN ss Moreno, Amanda am2 Corrections: (The following items were deleted from the chart) 12:20 12:18 Acuity: PRIMO 3 [facility]
[2022-04-05 02:21] VITALS: BP 122/74; TEMP 98.7; O2SAT 100
== END 2022-04-03 16:09 | disposition home or self-care (01) ==
LOC: ER 12:03
DX: R05.9 Cough, unspecified (principal); J02.9 Acute pharyngitis, unspecified; Z20.822 Contact with and (suspected) exposure to COVID-19; Z88.5 Allergy status to narcotic agent; Z88.8 Allergy status to other drugs, medicaments and biological substances
CPT/HCPCS: 87070; 87081; 87804 ×2; 71045; 96372; 99284; U0003; J1100; J7614

== ENCOUNTER 2022-04-11 12:19 | Emergency (ER) | payer OTHER ==
--- OUTSIDE RECORDS SUMMARY | 2022-04-11 12:30 | XMS REPORT | Continuity of Care Document ---
:1950 Author Organization [facility] t Address [address] [place] [address] Care Team Providers Name Role Phone Martina Foster MD Primary Care Physician [phone] Stephani Ivan Attending Clinician Unavailable Martina Foster MD Attending Clinician [phone] Lino Vale RN Attending Clinician Unavailable Brigido Tenorio Attending Clinician Sami Goldman MD Attending Clinician Simon Pham MD Attending Clinician SIMON PHAM Attending Clinician Unavailable LOLY BHARDWAJ Attending Clinician Unavailable Doctor Unassigned, [place] Attending Clinician Unavailable SAMI GOLDMAN Attending Clinician Unavailable Sharon Taylor Attending Clinician SHARON ONEAL Attending Clinician Unavailable Payers Payer Name Policy Type Policy Number Effective Date Expiration Date S ann MEDICARE PART A [id number] 2006 \T\ B 00:00:00 Problems Condition Condition [...] Disease Active M ethodi progressiv progressiv 10-05 st e e 00:00: Hospita polyneurop polyneurop 00 l athy athy 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 [...] rmann Active Problem 11/27/2021 [facility] Gastroesop Gastroeso Problem Active 2021-11-27 Memoria hageal phageal 04:00:20 l reflux reflux [place] disease disease (disorder) (disorder) Active Problem 11/27/2021 [facility] Hypothyroi Hypothyro Problem Active 2021-11-27 Memoria dism idism 04:00:20 l (disorder) (disorder) He rmann Active Problem 11/27/2021 [facility] Tremor Tremor Problem Active 2021-11-27 Mem oria (finding) (finding) 04:00:20 l Active [place] Problem 11/27/2021 [facility] Tardive Tardive Problem [...] DIAZEPAM DRUG Active N/V 2019-07 Univers INGREDI ity of 00:00: [place] 00 Medical Branch [...] Reaction urinate Spirit Cold/Con - [facility] gestion [facility] Demerol Adverse Active sick, won't Com mon Reaction wake up [facility] Aleve Adverse Active GI Distress Comm on Reaction [facility] Advil Adverse Active GI Distress Comm on Reaction [facility] Lyrica Adverse Active severe Common Reaction sleepiness Spir [facility] gabapent Adverse Active hallucinatio C ommon ion Reaction ns [facility] Valium Adverse Active Info Not Common Reaction Available Spiri [facility] gabapent gabapent Active Memori a in in l [place] Valium Valium Active Memoria l [place] Demerol Demerol Active Memoria l [place] Family History Family Member Diagnosis Comments Start Date Stop Date Source Natural father Heart disease [facility] Natural father Anuerysm [facility] Natural father Diabetes [facility] Natural mother Heart attack [facility] Natural mother Heart disease [facility] Natural sister Lung cancer [facility] Natural brother Colon cancer [facility] Social History Social Habit Start Date Stop Date Quantity Comments Source Exposure to Not sure University of SARS-CoV-2 [facility] (event) Branch Tobacco use and 2020-05-29 2020-05-29 Never used Universit y of exposure 00:00:00 00:00:00 [facility] Alcohol intake 2019-07-22 2019-07-[address] [facility] 00:00:00 00:00:00 non-drinker of alcohol (finding) Sex Assigned At [address] [facility] 00:00:00 00:00:00 Smoking Status Start Date Stop Date Source Social History [facility] Medications Ordered Filled Start Stop Current Ordering Indication Dosage Frequency Signature Comments Components Source Medication Medication Date Date Medication? Clinician (SIG) Name Name Myrbetriq Yes [id number] TAKE 1 Me thodi 50 mg 3-[address] tablet 00:00: MOUTH Hospita extended 00 DAILY l release 24 hr Myrbetriq Yes [id number] TAKE 1 Me thodi 50 mg 3-[address] tablet 00:00: MOUTH Hospita extended 00 DAILY l release 24 hr amantadine Yes 100 mg = 1 M emoria 100 mg oral 2-11 tab, PO, l tablet 17:07: BID, X 90 [place] n day, # 180 tab, 3 Refill(s), Pharmacy: [facility], 154.94, cm, 08/27/21 10:51:00 [employer], Height, 78.636, kg, 08/27/21 10:51:00 [employer], Weight amantadine 0 Yes 100 mg = 1 M emoria 100 mg oral 2-11 tab, PO, l tablet 17:07: BID, X 90 [place] n 00 day, # 180 tab, 3 Refill(s), Pharmacy: [facility], 154.94, cm, 08/27/21 10:51:00 [employer], Height, 78.636, kg, 08/27/21 10:51:00 [employer], Weight amantadine 2020-07 Yes 100 mg = 1 M emoria 100 mg oral 1-09 tab, PO, l tablet 18:13: Daily, X Nicholas 90 day, # 90 tab, 3 Refill(s), Pharmacy: [facility], 154.94, cm, 05/25/21 11:54:00 [employer], Height, 77.273, kg, 05/25/21 11:54:00 [employer], Weight amantadine 1 Yes 100 mg = 1 M emoria 100 mg oral 1-09 tab, PO, l tablet 18:13: Daily, X [place] 90 day, # 90 tab, 3 Refill(s), Pharmacy: [facility], 154.94, cm, 05/25/21 11:54:00 [employer], Height, 77.273, kg, 05/25/21 11:54:00 [employer], Weight amantadine 2020-0 Yes 100 mg = 1 M emoria 100 mg oral 9- tab, PO, l tablet 20:21: Daily, X Nicholas 90 day, # 90 tab, 3 Refill(s), [id number], 152.4, cm, 02/11/21 11:19:00 CDT, Height, 76.364, kg, 02/11/21 11:19:00 CDT, Weight amantadine 2020-0 Yes 100 mg = 1 M emoria 100 mg oral 9- tab, PO, l tablet 20:21: Daily, X [place] 90 day, # 90 tab, 3 Refill(s), Pharmacy: [facility] #[id number], 152.4, cm, 02/11/21 11:19:00 CDT, Height, 76.364, kg, 02/11/21 11:19:00 CDT, Weight amantadine 2020-0 No 100 mg = 1 M emoria 100 mg oral 8-31 tab, PO, l tablet 22:41: Daily, X [place] 30 day, # 30 tab, 2 Refill(s), [id number], 152.4, cm, 02/11/21 11:19:00 CDT, Height, 76.364, kg, 02/11/21 11:19:00 CDT, Weight amantadine No 100 mg = 1 M emoria 100 mg oral 8-31 tab, PO, l tablet 22:41: Daily, X [place] 00 30 day, # 30 tab, 2 Refill(s), Pharmacy: [facility] #[id number], 152.4, cm, 02/11/21 11:19:00 CDT, Height, 76.364, kg, 02/11/21 11:19:00 CDT, Weight deutetraben 0 Yes 9 mg = 1 Me moria azine 9 MG 7-29 tab, PO, l Oral Tablet 16:59: BID, # 60 H ermann [Austedo] 00 tab, 2 Refill(s), Pharmacy: [facility] #[id number], 152.4, cm, 02/11/21 11:19:00 CDT, Height, 76.364, kg, 02/11/21 11:19:00 CDT, Weight deutetraben Yes 9 mg = 1 Me moria azine 9 MG 7-29 tab, PO, l Oral Tablet 16:59: BID, # 60 H ermann [Austedo] 00 tab, 2 Refill(s), Pharmacy: [facility] #[id number], 152.4, cm, 02/11/21 11:19:00 CDT, Height, 76.364, kg, 02/11/21 11:19:00 CDT, Weight deutetraben 2020-0 No 9 mg = 1 Me moria azine 9 MG 7-29 tab, PO, l Oral Tablet 16:50: BID, X 30 H ermann [Austedo] 00 day, # 60 tab, 2 Refill(s), other deutetraben 0 No 9 mg = 1 Me moria azine 9 MG 7-29 tab, PO, l Oral Tablet 16:50: BID, X 30 H ermann [Austedo] 00 day, # 60 tab, 2 Refill(s), other tramadol Yes 0 Memoria hydrochlori 6-24 Refill(s) l de 50 MG 14:52: Nicholas Oral Tablet 00 tramadol Yes 0 Memoria hydrochlori 6-24 Refill(s) l de 50 MG 14:52: [place] Oral Tablet 00 escitalopra Yes 0 Memori a m 10 mg 6-24 Refill(s) l oral tablet 14:28: [place] n 00 Trazodone Yes 0 Memoria Hydrochlori 6-24 Refill(s) l de 50 MG 14:28: [place] Oral Tablet 00 OLANZapine Yes 0 Memoria 7.5 mg oral 6-24 Refill(s) l tablet 14:28: [place] 00 Sodium Yes 0 Memoria Fluoride 6-24 Refill(s) l 0.011 MG/MG 14:28: [place] n Toothpaste 00 [Prevident] 24 HR Yes 50 mg = 1 Memoria mirabegron 6-24 tab, PO, l 50 MG 14:28: Daily, # [place] Extended 00 30 tab, 0 Release Refill(s) Tablet [Myrbetriq] levothyroxi Yes 0 Memori a ne 50 mcg 6-24 Refill(s) l (0.05 mg) 14:28: [place] oral tablet 00 Famotidine Yes 0 Memoria 40 MG Oral 6-24 Refill(s) l Tablet 14:28: [place] 00 24 HR Yes 0 Memoria Divalproex 6-24 Refill(s) l Sodium 250 14:28: [place] MG Extended 00 Release Tablet escitalopra Yes 0 Memori a m 10 mg 6-24 Refill(s) l oral tablet 14:28: [place] n 00 Trazodone Yes 0 Memoria Hydrochlori 6-24 Refill(s) l de 50 MG 14:28: [place] Oral Tablet 00 OLANZapine Yes 0 Memoria 7.5 mg oral 6-24 Refill(s) l tablet 14:28: [place] 00 Sodium Yes 0 Memoria Fluoride 6-24 Refill(s) l 0.011 MG/MG 14:28: [place] Toothpaste 00 [Prevident] 24 HR Yes [...] Divalproex 6-24 Refill(s) l Sodium 250 14:28: Nicholas MG Extended 00 Release Tablet Myrbetriq 2021- No [id number] TAKE 1 M ethodi 50 mg 5-20 03-[address] tablet 00:00: 00:00 MOUTH Hospita extended 00 :00 DAILY l release 24 hr Myrbetriq 2021- No [id number] TAKE 1 M ethodi 50 mg 5-20 03-[address] tablet 00:00: 00:00 MOUTH Hospita extended 00 :00 DAILY l release 24 hr diclofenac Yes 75mg Take 1 Unive rs 75 mg EC 1-05 tablet by ity of tablet 00:00: mouth 2 [place] [address] (two) Medical times Branch daily with meals. ARIPiprazol 2019-07 Yes 5mg Take 5 mg U nivers e (ABILIFY) 07-29 by mouth ity of 5 mg tablet 20:30: daily. [address] Branch escitalopra 2019-07 Yes 10mg Take 10 mg Univers m oxalate 07-29 by mouth ity of (LEXAPRO) 20:30: daily. [place] [facility] Medical tablet Branch ASPIRIN 2019-07 Yes 81mg Take 81 mg Univ ers ORAL -13 by mouth. ity of 20:30: [address] traZODONE 2019-07 Yes 1{tbl} Take 1 Univ ers 50 mg 1-13 tablet by ity of tablet 20:30: mouth. [address] benztropine 2019-07 Yes benztropin Univers 1 mg tablet -13 e 1 mg ity of 20:30: tablet TK [place] [address] 1 T PO BID Medical Branch cyclobenzap 2019-07 Yes cyclobenza Univers rine 5 mg 1-13 su 5 mg ity of tablet 20:30: tablet [place] 26 Medical Branch mirabegron 2019-07 Yes Take by [facility] ers (MYRBETRIQ) 1-13 mouth. ity of 50 mg 20:30: [place] tablet Medical Branch OLANZapine 2019-07 Yes 7.5mg Take 7.5 Un paresh 7.5 mg 1-13 mg by ity of tablet 20:30: mouth [place] daily. Medical Branch divalproex 2019-07 Yes 250mg Take 250 Un paresh (DEPAKOTE) 1-13 mg by ity of 250 mg EC 20:30: mouth [place] tablet every 8 Medical (eight) Branch hours. 2 tablets daily ARIPiprazol 2019-07 Yes 5mg Take 5 mg U nivers e (ABILIFY) 1-13 by mouth ity of 5 mg tablet 20:30: daily. [facility] Medical Branch escitalopra 2019-07 Yes 10mg Take 10 mg Univers m oxalate 07-29 by mouth ity of (LEXAPRO) 20:30: daily. [place] [facility] Medical tablet Branch ASPIRIN 2019-07 Yes 81mg Take 81 mg Univ ers ORAL 07-29 by mouth. ity of 20:30: [place] [address] Medical Branch traZODONE 2019-07 Yes 1{tbl} Take 1 Univ ers 50 mg 1-13 tablet by ity of tablet 20:30: mouth. [place] [address] Medical Branch benztropine 2019-07 Yes benztropin Univers 1 mg tablet 07-29 e 1 mg ity of 20:30: tablet TK 1 T PO BID Medical Branch cyclobenzap 2019-07 Yes cyclobenza Univers rine 5 mg -13 su 5 mg ity of tablet 20:30: tablet [place] [address] Medical Branch mirabegron 2019-07 Yes Take by [facility] ers (MYRBETRIQ) 1-13 mouth. ity of 50 mg 20:30: [place] tablet Medical Branch OLANZapine 2019-07 Yes 7.5mg Take 7.5 Un paresh 7.5 mg 1-13 mg by ity of tablet 20:30: mouth [place] [address] daily. Medical Branch divalproex 2019-07 Yes 250mg Take 250 Un paresh (DEPAKOTE) 1-13 mg by ity of 250 mg EC 20:30: mouth [place] tablet 26 every 8 Medical (eight) Branch hours. 2 tablets daily ARIPiprazol 2020-1 Yes 5mg Take 5 mg U nivers e (ABILIFY) -13 by mouth ity of 5 mg tablet 20:30: daily. [facility] Medical Branch escitalopra 2019-07 Yes 10mg Take 10 mg Univers m oxalate 07-29 by mouth ity of (LEXAPRO) 20:30: daily. [place] 20 [facility] Medical tablet Branch ASPIRIN 2019-07 Yes 81mg Take 81 mg Univ ers ORAL - by mouth. ity of 20:30: [place] [address] Medical Branch traZODONE 2019-07 Yes 1{tbl} Take 1 Univ ers 50 mg 1-13 tablet by ity of tablet 20:30: mouth. [place] [address] Medical Branch benztropine 2019-07 Yes benztropin Univers 1 mg tablet 07-29 e 1 mg ity of 20:30: tablet TK 1 T PO BID Medical Branch cyclobenzap 2019-07 Yes cyclobenza Univers rine 5 mg -13 su 5 mg ity of tablet 20:30: tablet [place] [address] Medical Branch mirabegron 2019-07 Yes Take by Univ ers (MYRBETRIQ) - mouth. ity of 50 mg 20:30: [place] tablet Medical Branch OLANZapine 2019-07 Yes 7.5mg Take 7.5 Un paresh 7.5 mg 1-13 mg by ity of tablet 20:30: mouth [place] [address] daily. Medical Branch divalproex 2019-07 Yes 250mg Take 250 Un paresh (DEPAKOTE) 1-13 mg by ity of 250 mg EC 20:30: mouth [place] [address] every 8 Medical (eight) Branch hours. 2 tablets daily diclofenac 2019-07 Yes [id number] 75mg Take 1 Univers 75 mg EC 0-22 [id number] tablet by ity of tablet 00:00: mouth 2 [place] (two) Medical times Branch daily with meals. diclofenac 2019-07 Yes [id number] 75mg Take 1 Univers 75 mg EC 0-22 [id number] tablet by ity of tablet 00:00: mouth 2 [place] (two) Medical times Branch daily with meals. diclofenac 2019-07 Yes [id number] 75mg Take 1 Univers 75 mg EC 0-22 [id number] tablet by ity of tablet 00:00: mouth 2 [place] (two) Medical times Branch daily with meals. diclofenac 2019-07 Yes [id number] 75mg Take 1 Univers 75 mg EC 0-22 [id number] tablet by ity of tablet 00:00: mouth 2 [place] (two) Medical times Branch daily with meals. diclofenac 2020-1 Yes [id number] 75mg Take 1 Univers 75 mg EC 0-22 [id number] tablet by ity of tablet 00:00: mouth 2 [place] (two) Medical times Branch daily with meals. diclofenac 2020-1 Yes [id number] 75mg Take 1 Univers 75 mg EC 0-22 [id number] tablet by ity of tablet 00:00: mouth 2 [place] (two) Medical times Branch daily with meals. aspirin 2020-0 Yes 81mg QD Take 81 mg Meth selvin (ECOTRIN) 1-[address] 81 MG 10:24: daily. Hospita enteric 21 l coated tablet OLANZapine 2020-0 Yes 10mg QD Take 10 mg M ethodi (ZYPREXA) 1-[address] 10 MG 10:24: nightly. Hospita tablet 21 l aspirin 2020-0 Yes 81mg QD Take 81 mg Meth selvin (ECOTRIN) 1-[address] 81 MG 10:24: daily. Hospita enteric 21 l coated tablet OLANZapine 2020-0 Yes 10mg QD Take 10 mg M ethodi (ZYPREXA) 1-[address] 10 MG 10:24: nightly. Hospita tablet 21 l benztropine 2020-0 Yes QD daily. Meth selvin (COGENTIN) 1-06 st 1 MG tablet 10:23: Hospit a 30 l divalproex 2020-0 Yes QD nightly. Met hodi (DEPAKOTE) 1- st 250 MG 24 10:23: Hospita hr tablet 30 l benztropine 2020-0 Yes QD daily. Meth selvin (COGENTIN) 1-06 st 1 MG tablet 10:23: Hospit a 30 l divalproex 2020-0 Yes QD nightly. Met hodi (DEPAKOTE) 1-06 st 250 MG 24 10:23: Hospita hr tablet 30 l traZODone 2020-0 Yes 1{tbl} QD Take 1 Meth selvin (DESYREL) 1-[address] 50 MG 10:19: mouth Hospita tablet 05 daily. l fluticasone 2020-0 Yes 2{spray QD 2 sprays Methodi (FLONASE) -06 } into each st 50 10:19: nostril Hospita mcg/actuati 05 daily. l on nasal spray ARIPiprazol 2020-0 Yes 1{tbl} QD Take 1 Me thodi e (ABILIFY) 1-[address] 5 MG tablet 10:19: mouth Hospi ta 05 daily. l fluticasone 2020-0 Yes 2{spray QD 2 sprays Methodi (FLONASE) 1-06 } into each st 50 10:19: nostril [...] by mouth Hospita 05 daily. l traZODone 2020-0 Yes 1{tbl} QD Take 1 Meth selvin (DESYREL) 1-[address] 50 MG 10:19: mouth Hospita tablet 05 daily. l dexlansopra 2020-0 Yes 1{capsu [...] daily. l 88 MCG tablet lithium 300 2019- Yes 2{capsu QD Take 2 M ethodi MG capsule 07-22 le} capsules st 10:19: by mouth Hospita 05 daily. l estradiol 2020-0 Yes [id number] Apply 0.5 Methodi (ESTRACE) 1-[address] 0.01 % (0.1 00:00: outer Hospi ta mg/gram) 00 vagina l vaginal three cream times/week at night estradiol 2019- Yes [id number] Apply 0.5 Methodi (ESTRACE) 1-[address] 0.01 % (0.1 00:00: outer Hospi ta mg/gram) 00 vagina l vaginal three cream times/week at night ASPIRIN Yes 81mg Take 81 mg Univ ers ORAL 2-14 by mouth. ity of 15:50: [address] ASPIRIN Yes 81mg Take 81 mg Univ ers ORAL 2-14 by mouth. ity of 15:50: [address] ASPIRIN 0 Yes 81mg Take 81 mg Univ ers ORAL 2-14 by mouth. ity of 15:50: [address] ASPIRIN 2018-0 Yes 81mg Take 81 mg Univ ers ORAL 2-14 by mouth. ity of 15:50: [address] ASPIRIN 2018-0 Yes 81mg Take 81 mg Univ ers ORAL 2-14 by mouth. ity of 15:50: [address] ASPIRIN 2018-0 Yes 81mg Take 81 mg Univ ers ORAL 2-14 by mouth. ity of 15:50: [address] ASPIRIN 2019-0 Yes 81mg Take 81 mg Univ ers ORAL 2-14 by mouth. ity of 15:50: [address] ASPIRIN 2019-0 Yes 81mg Take 81 mg Univ ers ORAL 2-14 by mouth. ity of 15:50: [address] ASPIRIN 2019-0 Yes 81mg Take 81 mg Univ ers ORAL 2-14 by mouth. ity of 15:50: [address] ASPIRIN 2019-0 Yes 81mg Take 81 mg Univ ers ORAL 2-14 by mouth. ity of 15:50: [address] ASPIRIN 2019-0 Yes 81mg Take 81 mg Univ ers ORAL 2-14 by mouth. ity of 15:50: [address] ASPIRIN Yes 81mg Take 81 mg Univ ers ORAL 2-14 by mouth. ity of 15:50: [address] ASPIRIN Yes 81mg Take 81 mg Univ ers ORAL 2-14 by mouth. ity of 15:50: [address] ASPIRIN Yes 81mg Take 81 mg Univ ers ORAL 2-14 by mouth. ity of 15:50: [address] ASPIRIN Yes 81mg Take 81 mg Univ ers ORAL 2-14 by mouth. ity of 15:50: [address] ARIPiprazol Yes 5mg Take 5 mg U nivers e (ABILIFY) 2-07 by mouth ity of 5 mg tablet 16:06: daily. [address] benztropine Yes benztropin Univers 1 mg tablet 2-07 e 1 mg ity of 16:06: tablet [place] [address] 1 T PO BID [facility] cyclobenzap Yes cyclobenza Univers rine 5 mg 2-07 su 5 mg ity of tablet 16:06: tablet [address] ARIPiprazol Yes 5mg Take 5 mg U nivers e (ABILIFY) 2-07 by mouth ity of 5 mg tablet 16:06: daily. [address] ARIPiprazol Yes 5mg Take 5 mg U nivers e (ABILIFY) 2-07 by mouth ity of 5 mg tablet 16:06: daily. [address] benztropine Yes benztropin Univers 1 mg tablet 2-07 e 1 mg ity of 16:06: tablet TK [place] [address] 1 T PO BID [facility] cyclobenzap Yes cyclobenza Univers rine 5 mg 2-07 su 5 mg ity of tablet 16:06: tablet [address] ARIPiprazol Yes 5mg Take 5 mg U nivers e (ABILIFY) 2-07 by mouth ity of 5 mg tablet 16:06: daily. [address] benztropine Yes benztropin Univers 1 mg tablet 2-07 e 1 mg ity of 16:06: tablet TK [place] [address] 1 T PO BID Medical Branch cyclobenzap Yes cyclobenza Univers rine 5 mg 2-07 su 5 mg ity of tablet 16:06: tablet [address] ARIPiprazol Yes 5mg Take 5 mg U nivers e (ABILIFY) 2-07 by mouth ity of 5 mg tablet 16:06: daily. [address] benztropine Yes benztropin Univers 1 mg tablet 2-07 e 1 mg ity of 16:06: tablet [place] [address] 1 T PO BID [facility] cyclobenzap Yes cyclobenza Univers rine 5 mg 2-07 su 5 mg ity of tablet 16:06: tablet [address] ARIPiprazol Yes 5mg Take 5 mg U nivers e (ABILIFY) 2-07 by mouth ity of 5 mg tablet 16:06: daily. [address] benztropine Yes benztropin Univers 1 mg tablet 2-07 e 1 mg ity of 16:06: tablet [place] [address] T PO BID [facility] cyclobenzap Yes cyclobenza Univers rine 5 mg 2-07 su 5 mg ity of tablet 16:06: tablet [address] ARIPiprazol Yes 5mg Take 5 mg U nivers e (ABILIFY) 2-07 by mouth ity of 5 mg tablet 16:06: daily. [address] benztropine Yes benztropin Univers 1 mg tablet 2-07 e 1 mg ity of 16:06: tablet [place] [address] T PO BID [facility] cyclobenzap Yes cyclobenza Univers rine 5 mg 2-07 su 5 mg ity of tablet 16:06: tablet [address] ARIPiprazol Yes 5mg Take 5 mg U nivers e (ABILIFY) 2-07 by mouth ity of 5 mg tablet 16:06: daily. [address] benztropine Yes benztropin Univers 1 mg tablet 2-07 e 1 mg ity of 16:06: tablet [place] [address] T PO BID [facility] cyclobenzap Yes cyclobenza Univers rine 5 mg 2-07 su 5 mg ity of tablet 16:06: tablet [address] benztropine Yes benztropin Univers 1 mg tablet 2-07 e 1 mg ity of 16:06: tablet TK [place] [address] 1 T PO BID [facility] ARIPiprazol Yes 5mg Take 5 mg U nivers e (ABILIFY) 2-07 by mouth ity of 5 mg tablet 16:06: daily. [address] cyclobenzap Yes cyclobenza Univers rine 5 mg 2-07 su 5 mg ity of tablet 16:06: tablet [address] benztropine Yes benztropin Univers 1 mg tablet 2-07 e 1 mg ity of 16:06: tablet TK [place] [address] 1 T PO BID [facility] cyclobenzap Yes cyclobenza Univers rine 5 mg 2-07 su 5 mg ity of tablet 16:06: tablet [address] ARIPiprazol Yes 5mg Take 5 mg U nivers e (ABILIFY) 2-07 by mouth ity of 5 mg tablet 16:06: daily. [address] benztropine Yes benztropin Univers 1 mg tablet 2-07 e 1 mg ity of 16:06: tablet TK [place] [address] 1 T PO BID [facility] cyclobenzap Yes cyclobenza Univers rine 5 mg 2-07 su 5 mg ity of tablet 16:06: tablet [address] ARIPiprazol Yes 5mg Take 5 mg U nivers e (ABILIFY) 2-07 by mouth ity of 5 mg tablet 16:06: daily. [address] benztropine Yes benztropin Univers 1 mg tablet 2-07 e 1 mg ity of 16:06: tablet TK [place] [address] 1 T PO BID [facility] cyclobenzap Yes cyclobenza Univers rine 5 mg 2-07 su 5 mg ity of tablet 16:06: tablet [address] ARIPiprazol Yes 5mg Take 5 mg U nivers e (ABILIFY) 2-07 by mouth ity of 5 mg tablet 16:06: daily. [address] benztropine Yes benztropin Univers 1 mg tablet 2-07 e 1 mg ity of 16:06: tablet TK [place] [address] 1 T PO BID [facility] cyclobenzap Yes cyclobenza Univers rine 5 mg 2-07 su 5 mg ity of tablet 16:06: tablet [address] ARIPiprazol Yes 5mg Take 5 mg U nivers e (ABILIFY) 2-07 by mouth ity of 5 mg tablet 16:06: daily. [address] benztropine Yes benztropin Univers 1 mg tablet 2-07 e 1 mg ity of 16:06: tablet TK [place] [address] 1 T PO BID [facility] cyclobenzap Yes cyclobenza Univers rine 5 mg 2-07 su 5 mg ity of tablet 16:06: tablet [address] ARIPiprazol Yes 5mg Take 5 mg U nivers e (ABILIFY) 2-07 by mouth ity of 5 mg tablet 16:06: daily. [address] benztropine Yes benztropin Univers 1 mg tablet 2-07 e 1 mg ity of 16:06: tablet TK [place] [address] 1 T PO BID [facility] cyclobenzap Yes cyclobenza Univers rine 5 mg 2-07 su 5 mg ity of tablet 16:06: tablet [address] ARIPiprazol Yes 5mg Take 5 mg U nivers e (ABILIFY) 2-07 by mouth ity of 5 mg tablet 16:06: daily. [address] benztropine Yes benztropin Univers 1 mg tablet 2-07 e 1 mg ity of 16:06: tablet TK [place] [address] 1 T PO BID [facility] cyclobenzap Yes cyclobenza Univers rine 5 mg 2-07 su 5 mg ity of tablet 16:06: tablet [address] traZODONE Yes 1{tbl} Take 1 Univ ers 50 mg 1-17 tablet by ity of tablet 16:09: mouth. [address] traZODONE Yes 1{tbl} Take 1 Univ ers 50 mg 1-17 tablet by ity of tablet 16:09: mouth. [address] traZODONE Yes 1{tbl} Take 1 Univ ers 50 mg 1-17 tablet by ity of tablet 16:09: mouth. [address] traZODONE Yes 1{tbl} Take 1 Univ ers 50 mg 1-17 tablet by ity of tablet 16:09: mouth. [address] traZODONE Yes 1{tbl} Take 1 Univ ers 50 mg 1-17 tablet by ity of tablet 16:09: mouth. [address] traZODONE Yes 1{tbl} Take 1 Univ ers 50 mg 1-17 tablet by ity of tablet 16:09: mouth. [address] traZODONE Yes 1{tbl} Take 1 Univ ers 50 mg 1-17 tablet by ity of tablet 16:09: mouth. [address] traZODONE Yes 1{tbl} Take 1 Univ ers 50 mg 1-17 tablet by ity of tablet 16:09: mouth. [address] traZODONE Yes 1{tbl} Take 1 Univ ers 50 mg 1-17 tablet by ity of tablet 16:09: mouth. [address] traZODONE Yes 1{tbl} Take 1 Univ ers 50 mg 1-17 tablet by ity of tablet 16:09: mouth. [address] traZODONE Yes 1{tbl} Take 1 Univ ers 50 mg 1-17 tablet by ity of tablet 16:09: mouth. [address] traZODONE Yes 1{tbl} Take 1 Univ ers 50 mg 1-17 tablet by ity of tablet 16:09: mouth. [address] traZODONE Yes 1{tbl} Take 1 Univ ers 50 mg 1-17 tablet by ity of tablet 16:09: mouth. [address] traZODONE Yes 1{tbl} Take 1 Univ ers 50 mg 1-17 tablet by ity of tablet 16:09: mouth. [address] traZODONE Yes 1{tbl} Take 1 Univ ers 50 mg 1-17 tablet by ity of tablet 16:09: mouth. [place] 04 [facility] escitalopra Yes 20mg Take 20 mg [...] by mouth ity of (LEXAPRO) 16:07: daily. [place] 20 mg 25 Medical tablet Branch escitalopra Yes 20mg Take 20 mg Univers m oxalate 1-17 by mouth ity of (LEXAPRO) 16:07: daily. [place] 20 mg 25 Medical tablet Branch escitalopra Yes 20mg Take 20 mg Univers m oxalate 1-17 by mouth ity of (LEXAPRO) 16:07: daily. [place] 20 mg 25 Medical tablet Branch escitalopra Yes 20mg Take 20 mg Univers m oxalate 1-17 by mouth ity of (LEXAPRO) 16:07: daily. [place] 20 mg 25 Medical tablet Branch escitalopra [...] by mouth ity of (LEXAPRO) 16:07: daily. [place] 20 mg 25 Medical tablet Branch escitalopra Yes 20mg Take 20 mg Univers m oxalate 1-17 by mouth ity of (LEXAPRO) 16:07: daily. [place] 20 mg 25 Medical tablet Branch escitalopra Yes 20mg Take 20 mg Univers m oxalate 1-17 by mouth ity of (LEXAPRO) 16:07: daily. [place] 20 mg 25 Medical tablet Branch escitalopra Yes 20mg Take 20 mg Univers m oxalate 1-17 by mouth ity of (LEXAPRO) 16:07: daily. [place] 20 mg 25 Medical tablet Branch escitalopra Yes 20mg Take 20 mg Univers m oxalate 1-17 by mouth ity of (LEXAPRO) 16:07: daily. [place] 20 mg 25 Medical tablet [place] omeprazole 2017-07 Yes Q.5D 2 (two) Meth selvin (PriLOSEC) 2-[address] 40 MG 00:00: day. [facility]osp[facility] capsule omeprazole 2017-07 Yes TK 1 C PO Un paresh 40 mg 2-26 D ity of capsule 00:00: [place] [facility] omeprazole 2017-07 Yes TK 1 C PO Un paresh 40 mg 2-26 D ity of capsule 00:00: [place] [facility] omeprazole 2017-07 Yes TK 1 C PO Un paresh 40 mg 2-26 D ity of capsule 00:00: [place] [facility] omeprazole 2017-07 Yes TK 1 C PO Un paresh 40 mg 2-26 D ity of capsule 00:00: [place] [facility] omeprazole 2017-07 Yes TK 1 C PO Un paresh 40 mg 2-26 D ity of capsule 00:00: [place] [facility] omeprazole 2017-07 Yes TK 1 C PO Un paresh 40 mg 2-26 D ity of capsule 00:00: [place] [facility] omeprazole 2017-07 Yes TK 1 C PO Un paresh 40 mg 2-26 D ity of capsule 00:00: [place] [facility] omeprazole 2017-07 Yes TK 1 C PO Un paresh 40 mg 2-26 D ity of capsule 00:00: [place] [facility] omeprazole 2017-07 Yes TK 1 C PO Un paresh 40 mg 2-26 D ity of capsule 00:00: [place] [facility] omeprazole 2017-07 Yes TK 1 C PO Un paresh 40 mg 2-26 D ity of capsule 00:00: [place] [facility] omeprazole 2018-1 Yes TK 1 C PO Un paresh 40 mg 2-26 D ity of capsule 00:00: [facility] omeprazole 2017-07 Yes TK 1 C PO Un paresh 40 mg 2-26 D ity of capsule 00:00: [facility] omeprazole 2017-07 Yes TK 1 C PO Un paresh 40 mg 2-26 D ity of capsule 00:00: [facility] omeprazole 2017-07 Yes TK 1 C PO Un paresh 40 mg 2-26 D ity of capsule 00:00: [facility] omeprazole 2017-07 Yes TK 1 C PO Un paresh 40 mg 2-26 D ity of capsule 00:00: [place] [facility] omeprazole 2017-07 Yes TK 1 C PO Un paresh 40 mg 2-26 D ity of capsule 00:00: [facility] omeprazole 2017-07 Yes TK 1 C PO Un paresh 40 mg 2-26 D ity of capsule 00:00: [facility] omeprazole 2017-07 Yes TK 1 C PO Un paresh 40 mg 2-26 D ity of capsule 00:00: [facility] omeprazole 2017-07 Yes Q.5D 2 (two) [...] IN THE ity of tablet 00:00: MORNING [place] [facility] propranolol 2018-0 Yes TK 1 T PO U nivers 10 mg 1-11 IN THE ity of tablet 00:00: MORNING [place] [facility] propranolol 2018-0 Yes TK 1 T PO U nivers 10 mg 1-11 IN THE ity of tablet 00:00: MORNING [place] [facility] propranolol 2018-0 Yes TK 1 T PO U nivers 10 mg 1-11 IN THE ity of tablet 00:00: MORNING [place] [facility] propranolol 2018-0 Yes TK 1 T PO U nivers 10 mg 1-11 IN THE ity of tablet 00:00: MORNING [place] [facility] propranolol 2018-0 Yes TK 1 T PO U nivers 10 mg 1-11 IN THE ity of tablet 00:00: MORNING [place] [facility] propranolol 2018-0 Yes TK 1 T PO U nivers 10 mg 1-11 IN THE ity of tablet 00:00: MORNING [place] [facility] propranolol 2018-0 Yes TK 1 T PO U nivers 10 mg 1-11 IN THE ity of tablet 00:00: MORNING [place] [facility] propranolol 2018-0 Yes TK 1 T PO U nivers 10 mg 1-11 IN THE ity of tablet 00:00: MORNING [place] [facility] propranolol 2018-0 Yes TK 1 T PO U nivers 10 mg 1-11 IN THE ity of tablet 00:00: MORNING [place] [facility] propranolol 2018-0 Yes TK 1 T PO U nivers 10 mg 1-11 IN THE ity of tablet 00:00: MORNING [place] [facility] propranolol 2018-0 Yes TK 1 T PO U nivers 10 mg 1-11 IN THE ity of tablet 00:00: MORNING [place] [facility] propranolol 2018-0 Yes TK 1 T PO U nivers 10 mg 1-11 IN THE ity of tablet 00:00: MORNING [place] [facility] propranolol 2018-0 Yes TK 1 T PO U nivers 10 mg 1-11 IN THE ity of tablet 00:00: MORNING [place] [facility] propranolol 2018-0 Yes TK 1 T PO U nivers 10 mg 1-11 IN THE ity of tablet 00:00: MORNING [place] [facility] propranolol 2018-0 Yes TK 1 T PO U nivers 10 mg 1-11 IN THE ity of tablet 00:00: MORNING [place] [facility] propranolol 2018-0 Yes TK 1 T PO U nivers 10 mg 1-11 IN THE ity of tablet 00:00: MORNING [place] [facility] propranolol 2018-0 Yes TK 1 T PO U nivers 10 mg 1-11 IN THE ity of tablet 00:00: MORNING [place] [facility] levothyroxi 2017- Yes TK 1 T PO U nivers ne 75 mcg 2-18 ONCE A DAY ity of tablet 00:00: [place] [facility] levothyroxi 2017- Yes TK 1 T PO U nivers ne 75 mcg 2-18 ONCE A DAY ity of tablet 00:00: [place] [facility] levothyroxi 2017- Yes TK 1 T PO U nivers ne 75 mcg 2-18 ONCE A DAY ity of tablet 00:00: [place] [facility] levothyroxi 2017- Yes TK 1 T PO U nivers ne 75 mcg 2-18 ONCE A DAY ity of tablet 00:00: [place] [facility] levothyroxi 2017- Yes TK 1 T PO U nivers ne 75 mcg 2-18 ONCE A DAY ity of tablet 00:00: [place] [facility] levothyroxi 2017 Yes TK 1 T PO U nivers ne 75 mcg 2-18 ONCE A DAY ity of tablet 00:00: [place] [facility] levothyroxi 2016-07 Yes TK 1 T PO U nivers ne 75 mcg 2-18 ONCE A DAY ity of tablet 00:00: [place] [facility] levothyroxi 2016-07 Yes TK 1 T PO U nivers ne 75 mcg 2-18 ONCE A DAY ity of tablet 00:00: [place] [facility] levothyroxi 2016-07 Yes TK 1 T PO U nivers ne 75 mcg 2-18 ONCE A DAY ity of tablet 00:00: [address] levothyroxi 2016-07 Yes TK 1 T PO U nivers ne 75 mcg 2-18 ONCE A DAY ity of tablet 00:00: [place] [facility] levothyroxi 2016-07 Yes TK 1 T PO U nivers ne 75 mcg 2-18 ONCE A DAY ity of tablet 00:00: [place] [facility] levothyroxi 2016-07 Yes TK 1 T PO U nivers ne 75 mcg 2-18 ONCE A DAY ity of tablet 00:00: [address] levothyroxi 2016-07 Yes TK 1 T PO U nivers ne 75 mcg 2-18 ONCE A DAY ity of tablet 00:00: [address] levothyroxi 2016-07 Yes TK 1 T PO U nivers ne 75 mcg 2-18 ONCE A DAY ity of tablet 00:00: [place] [facility] levothyroxi 2016-07 Yes TK 1 T PO U nivers ne 75 mcg 2-18 ONCE A DAY ity of tablet 00:00: [place] [facility] levothyroxi 2016-07 Yes TK 1 T PO U nivers ne 75 mcg 2-18 ONCE A DAY ity of tablet 00:00: [address] levothyroxi 2016-07 Yes TK 1 T PO U nivers ne 75 mcg 2-18 ONCE A DAY ity of tablet 00:00: [address] levothyroxi 2016-07 Yes TK 1 T PO U nivers ne 75 mcg 2-18 ONCE A DAY ity of tablet 00:00: [address] traMADOL 50 2016-07 Yes TK 1 T [...] BID PRF ity of 00:00: SEVERE [place] [facility] Branch traMADOL 50 2016- Yes TK 1 T PO U nivers mg tablet 2-05 BID PRF ity of 00:00: SEVERE [place] PAIN [facility] Branch traMADOL 50 2016- Yes TK 1 T PO U nivers mg tablet 2-05 BID PRF ity of 00:00: SEVERE [place] PAIN [facility] Branch Trazodone Trazodone 2016- Yes Stephani 1 tablet Common HCl HCl 5-18 [place] at bedtime Spirit 00:00: as needed - [facility] 00 [facility] traZODONE 2017-0 Yes 50mg Take 50 [...] at [place] tablet 23 bedtime. Medical Branch cycloSPORIN 2015-07 Yes Q.5D 2 (two) Met hodi E 1-[address] (RESTASIS) 00:00: day. Hospita 0.05 % 00 l ophthalmic emulsion RESTASIS 2015-07 Yes INSTILL 1 Univ ers 0.05 % 28 GTT IN OU ity of ophthalmic 00:00: [...] OU [place] drops 00 Medical Branch RESTASIS 2016 Yes INSTILL 1 Univ ers 0.05 % [...] OU [place] drops 00 Medical Branch RESTASIS 2016 Yes INSTILL 1 Univ ers 0.05 % 1-28 GTT IN OU ity of ophthalmic 00:00: BID [place] drops 00 Medical Branch PATADAY 0.2 2015-07 Yes INSTILL 1 U nivers % 1-28 GTT QD IN ity of ophthalmic 00:00: OU [place] drops 00 Medical Branch RESTASIS 2016 Yes INSTILL 1 Univ ers 0.05 % 1-28 GTT IN OU ity of ophthalmic 00:00: BID [place] drops 00 Medical Branch PATADAY 0.2 2015-07 Yes INSTILL 1 U nivers % 1-28 GTT QD IN ity of ophthalmic 00:00: OU [place] drops 00 Medical Branch RESTASIS 2016 Yes INSTILL 1 Univ ers 0.05 % 1-28 GTT IN OU ity of ophthalmic 00:00: BID [place] drops 00 Medical Branch PATADAY 0.2 2015-07 Yes INSTILL 1 U nivers % 1-28 GTT QD IN ity of ophthalmic 00:00: OU [place] drops 00 Medical Branch cycloSPORIN 2015-07 Yes Q.5D 2 (two) Met hodi E 1-[address] (RESTASIS) 00:00: day. Hospita 0.05 % 00 l ophthalmic emulsion trihexyphen 2015-07 Yes TK 1/2 T Un praesh idyl 2 mg 0-20 PO BID ity [...] ity of tablet 00:00: Medical Branch trihexyphen 2016-1 Yes TK 1/2 T Un paresh idyl 2 mg 0-20 PO BID ity of tablet 00:00: [place] 00 Medical Branch trihexyphen 2015-07 Yes TK 1/2 T Un paresh idyl 2 mg 0-20 PO BID ity of tablet 00:00: [place] [facility] trihexyphen 2015-07 Yes TK 1/2 T Un paresh idyl 2 mg 0-20 PO BID ity of tablet 00:00: [place] [facility] trihexyphen 2015-07 Yes TK 1/2 T Un paresh idyl 2 mg 0-20 PO BID ity of tablet 00:00: [place] [facility] trihexyphen 2015-07 Yes TK 1/2 T Un paresh idyl 2 mg 0-20 PO BID ity of tablet 00:00: [place] [facility] trihexyphen 2015-07 Yes TK 1/2 T Un paresh idyl 2 mg 0-20 PO BID ity of tablet 00:00: [place] [facility] trihexyphen 2015-07 Yes TK 1/2 T Un paresh idyl 2 mg 0-20 PO BID ity of tablet 00:00: [place] [facility] trihexyphen 2015-07 Yes TK 1/2 T Un paresh idyl 2 mg 0-20 PO BID ity of tablet 00:00: [place] [facility] trihexyphen 2015-07 Yes TK 1/2 T Un paresh idyl 2 mg 0-20 PO BID ity of tablet 00:00: [place] [facility] trihexyphen 2015-07 Yes TK 1/2 T Un paresh idyl 2 mg 0-20 PO BID ity of tablet 00:00: [place] [facility] trihexyphen 2015-07 Yes TK 1/2 T Un paresh idyl 2 mg 0-20 PO BID ity of tablet 00:00: [place] [facility] trihexyphen 2015-07 Yes TK 1/2 T Un paresh idyl 2 mg 0-20 PO BID ity of tablet 00:00: [place] [facility] trihexyphen 2015-07 Yes TK 1/2 T Un paresh idyl 2 mg 0-20 PO BID ity of tablet 00:00: [place] [facility] fluticasone 2014-07 Yes Univer s [...] 300 mg 00 Medical capsule Branch lithium 2014- Yes Univers carbonate 0-12 ity of (LITHONATE) [...] 00 Medical tablet Branch levothyroxi 2014-07 Yes Neha s ne 0-05 ity of (SYNTHROID) 00:00: [place] 88 mcg 00 Medical tablet Branch levothyroxi 2014-07 Yes Neha guzman ne 0-05 ity of (SYNTHROID) 00:00: [place] 88 mcg 00 Medical tablet Branch levothyroxi 2014-07 Yes Neha s ne 0-05 ity of (SYNTHROID) 00:00: [place] 88 mcg 00 Medical tablet Branch levothyroxi 2014-07 Yes Neha s ne 0-05 ity of (SYNTHROID) 00:00: [place] 88 mcg 00 Medical tablet Branch levothyroxi 2014-07 Yes Neha guzman ne 0-05 ity of (SYNTHROID) 00:00: [place] 88 mcg 00 Medical tablet Branch levothyroxi 2014-07 Yes Neha guzman ne 0-05 ity of (SYNTHROID) 00:00: [place] 88 mcg 00 Medical tablet Branch levothyroxi 2014-07 Yes Neha s ne 0-05 ity of (SYNTHROID) 00:00: [place] 88 mcg 00 Medical tablet Branch levothyroxi 2014-07 Yes Neha s ne 0-05 ity of (SYNTHROID) 00:00: [place] 88 mcg 00 Medical tablet Branch levothyroxi 2014-07 Yes Univyasmin s ne 0-05 ity of (SYNTHROID) 00:00: [place] 88 mcg 00 Medical tablet Branch levothyroxi 2014-07 Yes Neha guzman ne 0-05 ity of (SYNTHROID) 00:00: [place] 88 mcg 00 Medical tablet Branch levothyroxi 2014-07 Yes Univyasmin s ne 0-05 ity of (SYNTHROID) 00:00: [...] Olanzapine Olanzapine Yes Stephani 1 tablet Common [place] [facility] Vital Signs Vital Name Observation Time Observation Value Comments Source Systolic blood 2020-05-29 20:24:00 117 mm[Hg] Univer sity of pressure [facility] Diastolic blood 2020-05-29 20:24:00 72 mm[Hg] Unive rsity of [facility] Heart rate 2020-05-29 20:24:00 61 /min [facility] Body temperature 2020-05-29 20:24:00 36.89 Dione [facility] Body height 2020-05-29 20:24:00 157.5 cm [facility] Body weight 2020-05-29 20:24:00 75.252 kg [facility] BMI 2020-05-29 20:24:00 30.34 kg/m2 [facility] Oxygen saturation in 2020-05-29 20:24:00 97 /min [facility] Arterial blood by [facility] Pulse oximetry Branch Systolic blood 2020-05-29 20:24:00 117 mm[Hg] Univer sity of pressure [facility] Diastolic blood 2020-05-29 20:24:00 72 mm[Hg] Unive rsity of [facility] Heart rate 2020-05-29 20:24:00 61 /min [facility] Body temperature 2020-05-29 20:24:00 36.89 [facility] 2020-05-29 20:24:00 157.5 cm [facility] Body weight 2020-05-29 20:24:00 75.252 kg Universi ty of [place] [facility] BMI 2020-05-29 20:24:00 30.34 kg/m2 Universi ty of [place] [facility] Oxygen saturation in 2020-05-29 20:24:00 97 /min University of Arterial blood by [facility] Pulse oximetry Branch Systolic blood 2020-05-07 14:10:00 105 mm[Hg] Univer sity of pressure [facility] Diastolic blood 2020-05-07 14:10:00 71 mm[Hg] Unive rsity of pressure [facility] Heart rate 2020-05-07 14:10:00 76 /min Universi ty of [place] [facility] Body weight 2020-05-07 14:10:00 74.844 kg Universi ty of [place] [facility] BMI 2020-05-07 14:10:00 29.70 kg/m2 Universi ty of [facility] Systolic blood 2020-04-27 20:38:00 106 mm[Hg] Univer sity of pressure [facility] Diastolic blood 2020-04-27 20:38:00 69 mm[Hg] Unive rsity of pressure [facility] Branch Heart rate 2020-04-27 20:38:00 69 /min Universi ty of [place] [facility] Body height 2020-04-27 20:38:00 158.8 cm Universi ty of [place] [facility] Body weight 2020-04-27 20:38:00 74.844 kg Universi ty of [place] [facility] BMI 2020-04-27 20:38:00 29.70 kg/m2 [facility]i ty [facility] [place] [facility] Body height 2020-04-10 15:05:00 158.8 cm Universi ty of [place] [facility] Body weight 2020-04-10 15:05:00 74.844 kg Universi ty of [place] [facility] BMI 2020-04-10 15:05:00 29.70 kg/m2 Universi ty of [facility] Body height 2019-11-28 18:11:00 160 cm Universi ty of [place] [facility] Body weight 2019-11-28 18:11:00 72.576 kg Universi ty of [place] [facility] BMI 2019-11-28 18:11:00 28.34 kg/m2 Universi ty of [facility] Branch Body height 2019-11-07 18:17:00 160 cm Universi ty of [place] [facility] Body weight 2019-11-07 18:17:00 67.586 kg [facility] BMI 2019-11-07 18:17:00 26.39 kg/m2 [facility] Systolic (mm Hg) 2021-11-24 16:03:00 Elio [facility] [place] Diastolic (mm Hg) 2021-11-24 16:03:00 Mem o[facility] [place] Heart Rate 2021-11-24 16:03:00 [facility] Height 2021-11-24 16:03:00 152.4 cm [facility] [place] Weight 2021-11-24 16:03:00 [facility] [place] BMI Calculated 2021-11-24 16:03:00 [facility]ori [facility] [place] Systolic (mm Hg) 2021-08-27 16:22:00 Elio [facility] [place] Diastolic (mm Hg) 2021-08-27 16:22:00 Mem o[facility] [place] Heart Rate 2021-08-27 16:22:00 [facility] Respitory Rate 2021-08-27 16:22:00 [facility] Height 2021-08-27 16:22:00 154.94 cm [facility] [place] Weight 2021-08-27 16:22:00 [facility] BMI Calculated 2021-08-27 16:22:00 [facility] [place] Systolic (mm Hg) 2021-05-25 17:35:00 Elio [facility] Diastolic (mm Hg) 2021-05-25 17:35:00 Mem [facility] Heart Rate 2021-05-25 17:35:00 [facility] [place] Respitory Rate 2021-05-25 17:35:00 [facility] Height 2021-05-25 17:35:00 154.94 cm [facility] Weight 2021-05-25 17:35:00 [facility] [place] BMI Calculated 2021-05-25 17:35:00 [facility] [place] Systolic (mm Hg) 2021-03-25 16:21:00 Elio [facility] [place] Diastolic (mm Hg) 2021-03-25 16:21:00 Mem [facility] Heart Rate 2021-03-25 16:21:00 [facility] [place] Respitory Rate 2021-03-25 16:21:00 [facility] [place] Height 2021-03-25 16:21:00 152.4 cm [facility] Weight 2021-03-25 16:21:00 [facility] BMI Calculated 2021-03-25 16:21:00 [facility] Systolic (mm Hg) 2021-02-11 16:05:00 Elio [facility] [place] Diastolic (mm Hg) 2021-02-11 16:05:00 [facility] Heart Rate 2021-02-11 16:05:00 [facility] Respitory Rate 2021-02-11 16:05:00 [facility] Height 2021-02-11 16:05:00 152.4 cm [facility] Weight 2021-02-11 16:05:00 [facility] BMI Calculated 2021-02-11 16:05:00 [facility] [place] Systolic (mm Hg) 2021-01-07 14:14:00 Elio rial [facility] Diastolic (mm Hg) 2021-01-07 14:14:00 Mem o[facility] [place] Heart Rate 2021-01-07 14:14:00 [facility] Respitory Rate 2021-01-07 14:14:00 [facility] [place] Height 2021-01-07 14:14:00 154.94 cm [facility] [place] Weight 2021-01-07 14:14:00 [facility] [place] BMI Calculated 2021-01-07 14:14:00 [facility] Procedures Procedure Date / Time Performing Clinician Source Performed EXTERNAL PROVIDER 2020-05-12 05:01:00 Doctor Unassigned, No [facility] RECORDS Name Medical Branch REFERRAL- 2019-11-20 05:01:00 Doctor Unassigned, No [facility] REQUEST/RESPONSE Name [facility] XR ANKLE <3 VW RIGHT 2019-11-07 18:40:10 [facility] cord [facility] [place] stimulation<sup>1</sup> Hysterectomy [facility] [place] [facility] Care Planned Activity Planned Date Details Comments Source Future Scheduled 2022-03-15 HEPATITIS B VACCINES [facility] Test 06:42:20 (1 of 3 - 3-dose series) [code = HEPATITIS B VACCINES (1 of 3 - 3-dose series)] Future Scheduled 2022-03-15 COVID-19 VACCINE (#1) [facility] Test 06:42:20 [code = COVID-19 VACCINE (#1)] Future Scheduled 2022-03-15 Hepatitis C screening [facility] Test 06:42:20 (procedure) [code = 414014761] Future Scheduled 2022-03-[address] [facility] Test 06:42:20 SCREENING [code = BREAST CANCER SCREENING] Future Scheduled 2022-03-15 COLONOSCOPY SCREENING [facility] Test 06:42:20 [code = COLONOSCOPY SCREENING] Future Scheduled 2022-03-15 SHINGLES VACCINES (1 [facility] Test 06:42:20 of 2) [code = SHINGLES VACCINES (1 of 2)] Future Scheduled 2022-03-15 65+ [facility]OC[facility]CCAL [facility] Test 06:42:20 VACCINE (1 - PCV) [code = 65+ PNEUMOCOCCAL VACCINE (1 - PCV)] Future Scheduled 2022-03-15 INFLUENZA VACCINE [facility] Test 06:42:20 [code = INFLUENZA VACCINE] Future Scheduled 2022-03-15 HEPATITIS B VACCINES [facility] Test 06:42:20 (1 of 3 - 3-dose series) [code = HEPATITIS B VACCINES (1 of 3 - 3-dose series)] Future Scheduled 2022-03-15 COVID-19 VACCINE (#1) [facility] Test 06:42:20 [code = COVID-19 VACCINE (#1)] Future Scheduled 2022-03-15 Hepatitis C screening [facility] Test 06:42:20 (procedure) [code = 226323045] Future Scheduled 2022-03-15 BREAST CANCER [facility] Test 06:42:20 SCREENING [code = BREAST CANCER SCREENING] Future Scheduled 2022-03-15 COLONOSCOPY SCREENING [facility] Test 06:42:20 [code = COLONOSCOPY SCREENING] Future Scheduled 2022-03-15 SHINGLES VACCINES (1 [facility] Test 06:42:20 of 2) [code = SHINGLES VACCINES (1 of 2)] Future Scheduled 2022-03-15 65+ [facility]OCOCCAL [facility] Test 06:42:20 VACCINE (1 - PCV) [code = 65+ PNEUMOCOCCAL VACCINE (1 - PCV)] Future Scheduled 2022-03-15 INFLUENZA VACCINE [facility] Test 06:42:20 [code = INFLUENZA VACCINE] Encounters Start End Encounter Admission Attending Care Care Encounter Source Date/Time Date/Time Type Type Clinicians Facility Department ID 2021-12-03 Outpatient NILSA Ivan STLMLC [id number] Common 11:50:01 Stephani [facility] 2021-08-11 Outpatient NILSA Ivan STLMLC [id number] Common 11:20:27 Stephani [id number] [facility] 2022-05-31 2022-05-31 Outpatient MHIE MHIE [id number] Memoria 11:15:00 11:15:00 06 michelle Peterson 2022-05-31 2022-05-31 Outpatient MHIE MHIE [id number] Memoria 11:15:00 11:15:00 06 michelle Nicholas 2022-03-16 2022-03-16 ambulatory STLMLC STLMLC [id number] Common 00:00:00 00:00:00 [facility] 2022-01-12 2022-01-12 Refill Anttiny, 1.2.840.1 [id number] Methodi 00:00:00 00:00:[address] [facility] 3.430.2.7 [facility] .3.940381 l .8 2022-01-12 2022-01-12 Refill Anttiny, 1.2.840.1 [id number] Methodi 00:00:00 00:00:[address] [facility] 3.430.2.7 [facility] .3.744684 l .8 2021-12-08 2021-12-08 ambulatory STLMLC STLMLC [id number] Common 00:00:00 00:00:00 [facility] 2021-12-08 2021-12-08 ambulatory STLMLC STLMLC [id number] Common 00:00:00 00:00:00 [facility] 2021-12-06 2021-12-06 ambulatory STLMLC STLMLC [id number] Common 00:00:00 00:00:00 [facility] 2021-12-06 2021-12-06 Telephone Kavin, 1.2.840.1 [id number] Methodi 00:00:00 00:00:[address] 3.430.2.7 Hospit a .3.240389 l .8 2021-12-06 2021-12-06 Telephone Kavin, 1.2.840.1 [id number] Methodi 00:00:00 00:00:[address] 3.430.2.7 Hospit a .3.968864 l .8 2021-12-03 2021-12-03 Refill Antosh, 1.2.840.1 [id number] Methodi 00:00:00 00:00:[address] [place] 3.430.2.7 [facility] [place] .3.318829 l .8 2021-12-03 2021-12-03 Refill Antosh, 1.2.840.1 [id number] Methodi 00:00:00 00:00:[address] [place] 3.430.2.7 Hospit [facility] [place] .3.772402 l .8 2021-11-24 2021-11-25 Outpatient nullFlavo MNA [id number] Memoria 16:15:00 04:59:59 r Neurology 05 l Samia Peterson 2021-11-24 2021-11-25 Outpatient nullFlavo MNA [id number] Memoria 16:15:00 04:59:59 r Neurology 05 l Samia Peterson 2021-11-24 2021-11-24 Outpatient RACHEL TenorioMISCHER MHMISCHER [id number] 11:15:00 23:59:59 Brigido Corona 2021-11-24 2021-11-24 Outpatient MHIE MHIE [id number] Memoria 11:15:00 11:15:00 05 michelle Peterson 2021-11-15 2021-11-15 ambulatory STLMLC STLMLC [id number] Common 00:00:00 00:00:00 [facility] 2021-10-05 2021-10-05 Refill Kristin, 1.2.840.1 [id number] Methodi 00:00:00 00:00:[address] [place] 3.430.2.7 Hospit [facility] [place] .3.745570 l .8 2021-10-05 2021-10-05 Refill Kristin, 1.2.840.1 [id number] Methodi 00:00:00 00:00:[address] [place] 3.430.2.7 Hospit [facility] [place] .3.011570 l .8 2021-09-07 2021-09-07 ambulatory STLMLC STLMLC [id number] Common 00:00:00 00:00:00 [facility] 2021-09-07 2021-09-07 ambulatory STLMLC STLMLC [id number] Common 00:00:00 00:00:00 [facility] 2021-08-27 2021-08-28 Outpatient nullFlavo MNA [id number] Memoria 16:45:00 05:59:59 r Neurology 04 l Samia Peterson 2021-08-27 2021-08-28 Outpatient nullFlavo MNA [id number] Memoria 16:45:00 05:59:59 r Neurology 04 l Samia Peterson 2021-08-27 2021-08-27 Outpatient STEVE Tenorio [facility] [id number] 10:45:00 23:59:59 Brigido Corona 2021-08-27 2021-08-27 Outpatient MHIE MHIE [id number] [facility] 10:45:00 10:45:00 04 michelle Peterson 2021-07-19 2021-07-19 ambulatory STLMLC STLMLC [id number] Common 00:00:00 00:00:00 [facility] 2021-07-19 2021-07-19 ambulatory STLMLC STLMLC [id number] Common 00:00:00 00:00:00 [facility] 2021-06-01 2021-06-01 ambulatory STLMLC STLMLC [id number] Common 00:00:00 00:00:00 [facility] 2021-05-25 2021-05-26 Outpatient nullFlavo MNA [id number] Memoria 17:45:00 05:59:59 r Neurology 03 l Samia Peterson 2021-05-25 2021-05-26 Outpatient nullFlavo MNA [id number] Memoria 17:45:00 05:59:59 r Neurology 03 michelle Peterson 2021-05-25 2021-05-25 Outpatient MAR TenorioSCHER MISCHER [id number] 11:45:00 23:59:59 Brigido Bharti Corona 2021-05-25 2021-05-25 Outpatient MHIE MHIE [id number] Memoria 11:45:00 11:45:00 03 michelle Peterson 2021-03-29 2021-03-29 Outpatient STLMLC STLMLC [id number] Common 00:00:00 00:00:00 [facility] 2021-03-25 2021-03-26 Outpatient nullFlavo MNA [id number] Memoria 16:30:00 04:59:59 r Neurology 02 michelle Coleann 2021-03-25 2021-03-26 Outpatient nullFlavo MNA [id number] Memoria 16:30:00 04:59:59 r Neurology 02 michelle Peterson 2021-03-25 2021-03-25 Outpatient MAR TenorioSCHER MISCHER [id number] 11:30:00 23:59:59 Brigido Johan Corona 2021-03-25 2021-03-25 Outpatient MHIE MHIE [id number] Memoria 11:30:00 11:30:00 02 michelle Peterson 2021-03-05 2021-03-05 Outpatient STLMLC STLMLC [id number] Common 00:00:00 00:00:00 [facility] 2021-03-04 2021-03-04 Outpatient STLMLC STLMLC [id number] Common 00:00:00 00:00:00 [facility] 2021-02-11 2021-02-12 Outpatient nullFlavo MNA [id number] Memoria 16:30:00 04:59:59 r Neurology 01 l Samia Peterson 2021-02-11 2021-02-12 Outpatient nullFlavo MNA [id number] Memoria 16:30:00 04:59:59 r Neurology 01 l Samia Peterson 2021-02-11 2021-02-11 [id number] 11:30:00 23:59:59 Brigido Marina Corona 2021-02-11 2021-02-11 Outpatient MHIE MHIE [id number] Memoria 11:30:00 11:30:00 01 michelle Peterson 2021-01-26 2021-01-26 Outpatient STLMLC STLMLC [id number] Common 00:00:00 00:00:00 [facility] 2021-01-25 2021-01-25 Outpatient STLMLC STLMLC [id number] Common 00:00:00 00:00:00 [facility] 2021-01-07 2021-01-08 Outpatient nullFlavo MNA [id number] Memoria 14:30:00 04:59:59 r Neurology 00 l Samia Peterson 2021-01-07 2021-01-08 Outpatient nullFlavo MNA [id number] Memoria 14:30:00 04:59:59 r Neurology 00 l Samia Peterson 2021-01-07 2021-01-07 Outpatient Jona AIDEN [facility] [id number] 09:30:00 23:59:59 Brigido Wanda Corona 2020-12-03 2020-12-03 Outpatient STLMLC STLMLC [id number] Common 00:00:00 00:00:00 [facility] 2020-12-02 2020-12-02 Outpatient STLMLC STLMLC [id number] Common 00:00:00 00:00:00 [facility] 2020-12-02 2020-12-02 Outpatient STLMLC STLMLC [id number] Common 00:00:00 00:00:00 [facility] 2020-10-12 2020-10-12 Outpatient STLMLC STLMLC [id number] Common 00:00:00 00:00:00 [facility] 2020-07-21 2020-07-21 Telephone Susi LADAO 1.2.840.114 [id number] Univers 00:00:00 00:00:00 Sami [facility] 350.1.13.10 it y of Surgical 4.2.7.2.686 Ari as Specialti [phone] Wi dical es 198 [facility] 2020-07-21 2020-07-21 Telephone Susi [facility] 1.2.840.114 [id number] 00:00:00 00:00:00 Sami L Health 350.1.13.10 Surgical 4.2.7.2.686 Specialti [phone] es [address] [place] 2020-06-18 2020-06-18 Outpatient STLMLC STLMLC [id number] Common 00:00:00 00:00:00 [facility] 2020-05-29 2020-05-29 [facility] 1.2.840.114 [id number] [facility] 13:53:33 14:23:33 Visit Health 350.1.13.10 it [place].686 [place] - [phone] [address] 2020-05-29 2020-05-29 [facility] 1.2.840.114 [id number] 13:53:33 14:23:33 Visit Health 350.1.13.10 Cancer 4.2.7.2.686 Center - [id number] [place] [id number] 2020-05-29 2020-05-29 Outpatient R VERO [facility] [id number] Univers 13:15:00 13:15:00 [id number] ity [facility] 2020-05-29 2020-05-29 Outpatient R VERO [facility] [id number] Univers 13:15:00 13:15:00 ity [facility] 2020-05-22 2020-05-22 Outpatient R VERO [facility] [id number] Univers 10:30:00 10:30:00 ity of [facility] 2020-05-22 2020-05-22 Outpatient R SIMON PHAM [facility] [id number] Univers 10:30:00 10:30:00 ity of [facility] 2020-05-14 2020-05-14 [facility] [id number] Univers 14:15:00 14:15:00 LOLY [id number] ity of [facility] 2020-05-14 2020-05-14 [facility] [id number] Univers 14:15:00 14:15:00 LOLY ity of [facility] 2020-05-12 2020-05-12 Orders Doctor LOLY 1.2.840.114 [id number] Univers 00:00:00 00:00:00 Only Unassigned, ADARSH 350.1.13.10 ity of [place] [facility] 4.2.7.2.686 Ari as [phone] [address] 2020-05-07 2020-05-07 [facility] [id number] Univers 09:00:31 09:34:56 Visit Sami Phan [facility] 350.1.13.10 it y of Surgical 4.2.7.2.686 Ari as Specialti [phone] Me dical es 198 [facility] 2020-05-07 2020-05-07 [facility] [id number] Univers 09:15:00 09:15:00 SAMI [id number] ity [facility] 2020-05-07 2020-05-07 [facility] [id number] Univers 09:15:00 09:15:00 SAMI ity [facility] 2020-05-01 2020-05-01 Outpatient STLMLC STLMLC [id number] Common 00:00:00 00:00:00 [facility] 2020-04-27 2020-04-27 [facility] [id number] Univers 15:23:39 15:53:55 Visit [facility] 350.1.13.10 it y of Surgical 4.2.7.2.686 Ari as Specialti [phone] Me dical es 198 [facility] 2020-04-27 2020-04-27 Outpatient R SUSI [facility] [id number] Univers 15:30:00 15:30:00 SAMI [id number] ity [facility] 2020-04-27 2020-04-27 Outpatient R SUSI [facility] [id number] Univers 15:30:00 15:30:00 SAMI ity [facility] 2020-04-10 2020-04-10 Hospital [facility] 1.2.840.114 [id number] Univers 10:22:53 23:59:00 Encounter Sami Phan [facility] 350.1.13.10 ity of Surgical 4.2.7.2.686 Ari as Specialti [phone] Wi dical es 809 [facility] 2020-04-10 2020-04-10 [facility] [id number] Univers 09:50:14 10:39:15 Visit Sami Phan [facility] 350.1.13.10 it y of Surgical 4.2.7.2.686 Ari as Specialti [phone] Wi dical es 198 [facility] 2020-04-10 2020-04-10 Outpatient R SUSI [facility] [id number] Univers 10:15:00 10:15:00 SAMI [id number] ity [facility] 2020-04-10 2020-04-10 Outpatient R SUSI [facility] [id number] Univers 10:15:00 10:15:00 SAMI ity [facility] 2020-04-10 2020-04-10 [facility]phone [facility] 1.2.840.114 [id number] Univers 00:00:00 00:00:00 Sami [facility] 350.1.13.10 it y of Surgical 4.2.7.2.686 Ari as Specialti [id number] Wi dical es 198 [facility] 2020-04-08 2020-04-08 Outpatient R SUIS [facility] [id number] Univers 15:30:00 15:30:00 SAMI [id number] ity [facility] 2020-03-30 2020-03-30 Outpatient [facility] [id number] Common 13:06:00 13:06:00 t [facility] [address] [facility] 2020-03-30 2020-03-30 Outpatient [facility] [id number] Common 10:00:00 10:00:00 [address] [place] [address] [facility] 2020-03-25 2020-03-25 Outpatient [facility] [id number] Common 10:00:00 10:00:00 t [facility] [address] [facility] 2020-02-26 2020-02-26 Outpatient [facility] [id number] Common 09:40:00 09:40:00 t [facility] [address] [facility] 2020-02-20 2020-02-20 Outpatient [facility] [id number] Common 08:40:00 08:40:00 t [facility] [address] [facility] 2020-01-16 2020-01-16 Outpatient [facility] [id number] Common 16:20:00 16:20:00 t [facility] [address] [facility] 2019-12-23 2019-12-23 Outpatient [facility] [id number] Common 14:03:00 14:03:00 t [facility] [address] [facility] 2019-11-28 2019-11-28 Office Sami Goldman Michelle [facility] 1.2.840. [id number] Univers 12:59:10 13:29:19 Visit Sharon Oneal [facility] 350.1.13.10 ity of Surgical 4.2.7.2.686 Ari as Specialti [phone] Wi dic[address] 2019-11-28 2019-11-28 Outpatient Bartolo ONEAL [facility] [id number] Univers 11:00:00 11:00:00 [facility] [id number] [facility] 2019-11-28 2019-11-28 Outpatient Bartolo ONEAL [facility] [id number] Univers 11:00:00 11:00:00 SHARON [facility] 2019-11-20 2019-11-20 Outpatient Preeti Álvarezt [id number] Common 10:40:00 10:40:00 t [facility] [address] [facility] 2019-11-20 2019-11-20 Orders Doctor LOLY 1.2.840.114 [id number] Univers 00:00:00 00:00:00 Only Unassigned, ADARSH 350.1.13.10 ity of [place] [facility] 4.2.7.2.686 Ari as [phone] [address] 2019-11-07 2019-11-07 [facility]patient [facility] [id number] Univers 13:40:09 23:59:00 SHARON ity [facility] 2019-11-07 2019-11-07 [facility] 1.2.840.114 [id number] Univers 13:40:00 23:59:00 Encounter Sharon [facility] 350.1.13.10 ity of Surgical 4.2.7.2.686 Ari as Specialti [id number] Wi dical es 809 [facility] 2019-11-07 2019-11-07 Outpatient [facility] [id number] Univers 13:45:00 13:45:00 SHARON [id number] ity [facility] 2019-11-07 2019-11-07 Office [facility] 1.2.840.114 [id number] Univers 13:16:02 13:31:02 Visit [facility] 350.1.13.10 it y of Surgical 4.2.7.2.686 Ari as Specialti [phone] Wi dical es 198 [facility] 2019-05-09 2019-05-09 Outpatient [facility] [id number] Univers 11:00:00 10:51:52 SHARON ity [facility] 2019-04-25 2019-04-25 Outpatient Bart[facility] [id number] Univers 13:00:00 13:17:51 SHARON ity [facility] 2019-04-12 2019-04-12 Outpatient Preeti Álvarezt [id number] Common 08:40:00 08:40:00 t [facility] [address] [facility] 2019-04-01 2019-04-01 Outpatient [facility] [id number] Common 13:13:00 13:13:[address] [facility] 2019-03-27 2019-03-27 Outpatient [facility] [id number] Common 16:30:00 16:30:[address] [facility] 2019-03-19 2019-03-19 Outpatient [facility] [id number] Common 13:35:00 13:35:[address] [facility] 2019-03-15 2019-03-15 Outpatient [facility] [id number] Common 16:10:00 16:10:[address] [facility] 2019-03-11 2019-03-11 Outpatient [facility] [id number] Common 08:23:00 08:23:[address] [facility] 2019-01-31 2019-01-31 Outpatient [facility] [id number] Common 15:49:00 15:49:[address] [facility] 2019-01-30 2019-01-30 Outpatient [facility] [id number] Common 08:40:00 08:40:[address] [facility] 2019-01-14 2019-01-14 Outpatient [facility] [id number] Common 08:40:00 08:40:[address] [facility] 2018-11-20 2018-11-20 Outpatient [facility] [id number] Common 13:30:00 13:30:[address] [facility] 2018-08-27 2018-08-27 Outpatient [facility] [id number] Common 09:30:00 09:30:[address] [facility] 2018-04-23 2018-04-23 Outpatient [facility] [id number] Common 08:30:00 08:30:00 t [facility] [address] [facility] 2018-04-10 2018-04-10 Outpatient [facility] [id number] Common 11:30:00 11:30:00 t [facility] [address] [facility] 2018-04-02 2018-04-02 Outpatient [facility] [id number] Common 14:12:00 14:12:00 t [facility] [address] [facility] 2018-04-02 2018-04-02 Outpatient Preeti Álvarezt [id number] Common 10:55:00 10:55:00 t Specialty/U Sp yanni Specialty rology - [facility] 2018-03-30 2018-03-30 [facility] [id number] Common 16:34:00 16:34:00 t Specialty/U Sp yanni Specialty rology - [facility] 2018-03-29 2018-03-29 Outpatient Preeti Álvarezt [id number] Common 14:40:00 14:40:00 t [facility] [address] [facility] 2017-12-14 2017-12-14 Outpatient Preeti Álvarezt [id number] Common 10:00:00 10:00:00 [facility] Results Test Description Test Time Test Comments Results Result Sourc e Comments XR ANKLE <3 VW 2019-11-07 No sign of [facility] RIGHT 19:02:14 fracture or [place] [facility] dislocation Branch ankle mortise well maintained
--- NOTE | 2022-04-11 12:45 | EDPHYS ---
Physician Documentation [facility] Name: Elyssa Olivo Age: 71 yrs Sex: Female : 1950 Arrival Date: 04/11/2022 Time: 12:23 Bed IW1 Private MD: ED Physician Damon Dorado HPI: 04/11 14:32 This 71 yrs old Female presents to ER via Ambulatory with complaints of Cough. snw 14:32 The patient or guardian reports pt has been dx recently with pharyngitis and snw bronchitis. Onset: The symptoms/episode began/occurred gradually, and became persistent. Severity of symptoms: At their worst the symptoms were moderate, in the emergency department the symptoms are unchanged. Associated signs and symptoms: Pertinent positives: sore throat. The patient has experienced similar episodes in the past. The patient has been recently seen by a physician: with similar presenting complaints, and apparently given a diagnosis of pharyngitis and bronchitis. Pt states she is not able to use her inhaler, using the inhaled steroids okay but is unable to press and coordinate inhalation of pro-air. Historical: - Allergies: 12:40 Demerol; jl7 12:40 GABAPENTIN; jl7 12:40 Valium; jl7 - Home Meds: 12:40 levothyroxine 50 mcg tab 1 tab once daily [Active]; jl7 - PMHx: 12:40 Back pain; Bipolar disorder; GERD; Hypothyroidism; jl7 - PSHx: 12:40 hysterectomy; jl7 - Immunization history:: Client reports receiving the 2nd dose of the Covid vaccine. - Social history:: Smoking status: Patient denies any tobacco usage or history of. ROS: 14:31 Constitutional: Negative for fever, chills, and weight loss, Eyes: Negative for injury, snw pain, redness, and discharge, ENT: Negative for injury and discharge, + sore throat Cardiovascular: Negative for chest pain, palpitations, and edema, Abdomen/GI: Negative for abdominal pain, nausea, vomiting, diarrhea, and constipation, Back: Negative for injury and pain, : Negative for injury, bleeding, discharge, and swelling, MS/Extremity: Negative for injury and deformity, Skin: Negative for injury, rash, and discoloration, Neuro: Negative for headache, weakness, numbness, tingling, and seizure, Psych: Negative for depression, anxiety, suicide ideation, homicidal ideation, and hallucinations. 14:31 Respiratory: Positive for cough. Exam: 14:31 Constitutional: This is a well developed, well nourished patient who is awake, alert, snw and in no acute distress. Head/Face: Normocephalic, atraumatic. Eyes: Pupils equal round and reactive to light, extra-ocular motions intact. Lids and lashes normal. Conjunctiva and sclera are non-icteric and not injected. Cornea within normal limits. Periorbital areas with no swelling, redness, or edema. ENT: Nares patent. No nasal discharge, no septal abnormalities noted. Tympanic membranes are normal and external auditory canals are clear. Oropharynx with no redness, swelling, or masses, exudates, or evidence of obstruction, uvula midline. Mucous membranes moist. Neck: Trachea midline, no thyromegaly or masses palpated, and no cervical lymphadenopathy. Supple, full range of motion without nuchal rigidity, or vertebral point tenderness. No Meningismus. Chest/axilla: Normal chest wall appearance and motion. Nontender with no deformity. No lesions are appreciated. 14:31 Respiratory: Lungs have equal breath sounds bilaterally, clear to auscultation and percussion. No rales, rhonchi or wheezes noted. No increased work of breathing, no retractions or nasal flaring. Abdomen/GI: Soft, non-tender, with normal bowel sounds. No distension or tympany. No guarding or rebound. No evidence of tenderness throughout. Back: No spinal tenderness. No costovertebral tenderness. Full range of motion. Skin: Warm, dry with normal turgor. Normal color with no rashes, no lesions, and no evidence of cellulitis. MS/ Extremity: Pulses equal, no cyanosis. Neurovascular intact. Full, normal range of motion. Neuro: Awake and alert, GCS 15, oriented to person, place, time, and situation. Cranial nerves II-XII grossly intact. Motor strength 5/5 in all extremities. Sensory grossly intact. Cerebellar exam normal. Normal gait. Psych: Awake, alert, with orientation to person, place and time. Behavior, mood, and affect are within normal limits. 14:31 Cardiovascular: Heart sounds: murmur, systolic, grade 1 over 6, Edema: is not appreciated. Vital Signs: 12:38 BP 119 / 102; Pulse 77; Resp 17; Temp 99; Pulse Ox 99% ; jl7 MDM: 12:28 Patient medically screened. snw 14:34 Data reviewed: vital signs, nurses notes. Data interpreted: Pulse oximetry: on room air snw is 99 %. Interpretation: normal. Counseling: I had a detailed discussion with the patient and/or guardian regarding: the historical points, exam findings, and any diagnostic results supporting the discharge/admit diagnosis, the need for outpatient follow up, to return to the emergency department if symptoms worsen or persist or if there are any questions or concerns that arise at home. Special discussion: Based on the history and exam findings, there is no indication for further emergent testing or inpatient evaluation. I discussed with the patient/guardian the need to see the primary care provider for further evaluation of the symptoms. Administered Medications: 12:55 Drug: Tessalon Perle (benzonatate) 200 mg Route: PO; jl7 12:55 Follow up: Response: Medication administered at discharge. jl7 Disposition: 04/12 08:29 Co-signature as Attending Physician, Damon Dorado DO I was immediately available on-site ms3 in the Emergency Department for consultation in the care of the patient. . Disposition Summary: 04/11/22 12:45 Discharge Ordered Location: Home snw Condition: Stable snw Diagnosis - Bronchitis, not specified as acute or chronic snw Followup: snw - With: Emergency Department - When: As needed - Reason: Worsening of condition Followup: snw - With: Private Physician - When: 2 - 3 days - Reason: Recheck today's complaints, Continuance of care, Re-evaluation by your physician Discharge Instructions: - Discharge Summary Sheet snw - Acute Bronchitis, Adult snw - Cough, Adult snw Forms: - Medication Reconciliation Form snw - Thank You Letter snw - Antibiotic Education snw - Prescription Opioid Use snw Prescriptions: - SPACER WITH MASK - inhale 2 puff by INHALATION route 3-4 times daily; 1 Device; Refills: 0, snw Product Selection Permitted - benzonatate 100 mg Oral Capsule - take 1 capsule by ORAL route 3 times per day; 30 capsule; Refills: 0, Product snw Selection Permitted Signatures: Vandana Duncan FNP-C [employer] ASST-Ramsesw Ramsay, Jahala, RN RN jl7 Dorado, Damon, DO DO ms3
--- NOTE | 2022-04-11 12:45 | ER ---
Nurse's Notes [facility] Name: Elyssa Olivo Age: 71 yrs Sex: Female : 1950 Arrival Date: 04/11/2022 Time: 12:23 Bed IW1 Private MD: Diagnosis: Bronchitis, not specified as acute or chronic Presentation: 04/11 12:38 Chief complaint: Patient states: Continuing to feel bad, dx with pharyngitis x 2 weeks jl7 ago, unable to use the inhaler. Coronavirus screen: At this time, the client does not indicate any symptoms associated with coronavirus-19. Ebola Screen: No symptoms or risks identified at this time. Initial Sepsis Screen: Does the patient meet any 2 criteria? No. Patient's initial sepsis screen is negative. Does the patient have a suspected source of infection? No. Patient's initial sepsis screen is negative. Risk Assessment: Do you want to hurt yourself or someone else? Patient reports no desire to harm self or others. Onset of symptoms was March 29, 2022. 12:38 Method Of Arrival: Ambulatory jl7 12:38 Acuity: PRIMO 4 jl7 Triage Assessment: 12:40 General: Appears in no apparent distress. uncomfortable, Behavior is cooperative, jl7 appropriate for age, anxious. Pain: Denies pain. Historical: - Allergies: 12:40 Demerol; jl7 12:40 GABAPENTIN; jl7 12:40 Valium; jl7 - Home Meds: 12:40 levothyroxine 50 mcg tab 1 tab once daily [Active]; jl7 - PMHx: 12:40 Back pain; Bipolar disorder; GERD; Hypothyroidism; jl7 - PSHx: 12:40 hysterectomy; jl7 - Immunization history:: Client reports receiving the 2nd dose of the Covid vaccine. - Social history:: Smoking status: Patient denies any tobacco usage or history of. Screenin:35 Abuse screen: Denies threats or abuse. Denies injuries from another. Nutritional jl7 screening: No deficits noted. Tuberculosis screening: No symptoms or risk factors identified. Fall Risk None identified. Assessment: 12:35 Reassessment: YAMILET Ross in triage assessing pt. jl7 Vital Signs: 12:38 BP 119 / 102; Pulse 77; Resp 17; Temp 99; Pulse Ox 99% ; jl7 ED Course: 12:23 Patient arrived in ED. rg4 12:23 Vandana uDncan F[facility]C [facility] snw 12:23 Damon Dorado DO is Attending Physician. snw 12:35 Patient has correct armband on for positive identification. jl7 12:35 No provider procedures requiring assistance completed. Patient did not have IV access jl7 during this emergency room visit. 12:40 Triage completed. jl7 12:40 Arm band placed on right wrist. jl7 12:42 Yves Ramsay, RN is Primary Nurse. jl7 Administered Medications: 12:55 Drug: Tessalon Perle (benzonatate) 200 mg Route: PO; jl7 12:55 Follow up: Response: Medication administered at discharge. jl7 Medication: 12:35 VIS not applicable for this client. jl7 Outcome: 12:45 Discharge ordered by . snw 12:55 Discharged to home ambulatory. jl7 12:55 Condition: stable 12:55 Discharge instructions given to patient, Instructed on discharge instructions, follow up and referral plans. medication usage, Demonstrated understanding of instructions, follow-up care, medications, Prescriptions given X 2. 12:55 Patient left the ED. jl7 Signatures: Vandana Duncan FNP-C [employer]ATOR-[facility] Haley Alfred rg4 Yves Ramsay, RN RN jl7 Corrections: (The following items were deleted from the chart) 12:42 12:41 Reassessment: YAMILET Ross in triage assessing pt jl7 jl7
[2022-04-11] MEDS ORDERED: BENZONATATE 100 MG CAP PO ONE (12:49)
== END 2022-04-11 12:55 | disposition home or self-care (01) ==
LOC: ER 12:19
DX: J40 Bronchitis, not specified as acute or chronic (principal); E03.9 Hypothyroidism, unspecified; Z88.5 Allergy status to narcotic agent; Z88.8 Allergy status to other drugs, medicaments and biological substances
CPT/HCPCS: 99283

== ENCOUNTER → 2023-10-06 | Emergency (ER) | payer OTHER ==
[~2023-10-06] MED LIST: NA CHLORIDE 0.9% 500 ML ONE
--- NOTE | 2023-10-06 17:46 | RAD REPORT ---
EXAM DESCRIPTION: RAD - Chest Single View - 10/06/2023 5:41 pm CLINICAL HISTORY: COUGH Chest pain. COMPARISON: Chest Single View dated 04/28/2023; Chest Single View dated 04/03/2022; Chest Pa And Lat (2 Views) dated 12/08/2021; Chest Single View dated 02/08/2021 FINDINGS: Portable technique limits examination quality. The lungs are grossly clear. The heart is upper limit of normal in size. No displaced fractures.Cervi go hardware. IMPRESSION: No acute intrathoracic process suspected.
--- NOTE | 2023-10-06 17:59 | RAD REPORT ---
EXAM DESCRIPTION: - CP - 10/06/2023 5:51 pm CLINICAL HISTORY: DIZZINESS Headache, drowsiness COMPARISON: Carotid Artery Bilateral dated 01/06/2017 TECHNIQUE: Real-time sonographic evaluation of both carotid systems was performed. Doppler interroga tion was performed with waveform tracing bilaterally. FINDINGS: Normal high resistance waveforms are noted in both external carotid arteries. The common c arotid arteries and internal carotid arteries show normal low resistance waveforms. No significant plaque formation is seen. Peak systolic and end diastolic velocity values and the ICA/ CCA ratios are in the non-hemodynamically significant range. Antegrade flow seen in both vertebral arteries. IMPRESSION: No significant atherosclerotic changes noted. No evidence of a hemodynamically significant stenosis.
[2023-10-06 18:40] LABS: Absolute Eosinophils 0.1 K/uL (0-0.5); Absolute Monocytes 0.6 K/uL (0.1-1.3); Absolute Neutrophil 3.3 K/uL (1.8-8.0); Basophils % 0.5 % (0-1.3); Eosinophils % 1.8 % (0-4.4); Hematocrit 37.2 % (36.0-45.0); Hemoglobin 12.4 g/dL (12.0-15.0); Lymphocytes % 32.8 % (15.3-44.8); MCH 30.7 pg (27.0-35.0); MCHC 33.5 g/dL (32.0-36.0); MCV 91.7 fL (80-100); MPV 9.4 fL (7.6-11.3); Monocytes % 10.2 % (3.3-12.3); Neutrophils % 54.7 % (41.7-73.7); Platelets 159 thou/uL (152-406); RBC Red Blood Cell Count 4.05 M/uL (3.86-4.86); Red Cell Distribution Width 13.3 % (12.1-15.2)
--- NOTE | 2023-10-06 18:47 | RAD REPORT ---
EXAM DESCRIPTION: CT - Head C Spine Cap Wo Con - 10/06/2023 6:15 pm CLINICAL HISTORY: Trauma, head and neck injury. Chest, abdomen and pelvis pain. DIZZINESS COMPARISON: No comparisons TECHNIQUE: CT head without contrast. CT cervical spine without contrast with coronal and sagittal reformatted images. CT chest, abdomen and pelvis without contrast with coronal and sagittal reformatted images of the [facility]. All CT scans are performed using dose optimization technique as appropriate and may include automated exposure control or mA/KV adjustment according to patient size. FINDINGS: CT HEAD WITHOUT CONTRAST: No intracranial hemorrhage, hydrocephalus or extra-axial fluid collection. No areas of brain edema o r midline shift. The paranasal sinuses and mastoids are clear. The calvarium is intact. CT CERVICAL SPINE WITHOUT CONTRAST: No fracture or subluxation. Prominent degenerative changes present at C3-4. 3 mm degenerative retroli sthesis of C4 on 5. Anterior fusion hardware is present spanning C5-7. Interbody bone plugs are also noted. The prevertebral soft tissues are normal in thickness. CT CHEST, ABDOMEN, PELVIS WITHOUT CONTRAST: NOTE: Lack of contrast is a significant limitation in the assessment of trauma related findings. Spec ifically, solid organ, vascular and bowel evaluation is significantly limited. The lungs are clear.Significant thickening of the esophagus.No pneumothorax or pericardial/pleural fl uid. No evidence of intra-abdominal visceral injury, free fluid or free air is seen within the above detai led limitations. Moderate stool throughout the colon. Scattered diverticulosis. No fractures. IMPRESSION: Negative for acute traumatic findings within the above detailed limitations.
[2023-10-06 19:00] LABS: Albumin 3.6 g/dL (3.4-5.0); Anion Gap 5.7 mEq/L (5.0-15.0); Bilirubin Direct 0.1 mg/dL (0-0.2); Bilirubin Indirect, Calculated 0.1 mg/dL (0.2-0.8); Bilirubin Total 0.2 mg/dL (0.2-1.0); Globulin 3.5 g/dL (2.3-3.5); Potassium 3.7 mEq/L (3.5-5.1); Protein, Total 7.1 g/dL (6.4-8.2); Troponin High Sensitivity 8.2 pg/mL (<58.9); Valproic Acid (Depakene) Level 46.5 mcg/mL (50.0-100.0)
--- NOTE | 2023-10-06 19:58 | EDPHYS ---
Physician Documentation [facility] Name: Elyssa Olivo Age: 73 yrs Sex: Female : 1950 Arrival Date: 10/06/2023 Time: 16:45 Bed 5 Private MD: TEDDY Physician Mat Menendez HPI: 10/05 17:21 This 73 yrs old Female presents to ER via EMS with complaints of Back Pain, james Blurred Vision. 17:21 The patient presents with pain that is acute, that is chronic. The symptoms are located james in the low back, thoracic area and lumbar area. Onset: The symptoms/episode began/occurred 45 day(s) ago. The pain does not radiate. Associated signs and symptoms: The patient has no apparent associated signs or symptoms. Modifying factors: The patient symptoms are alleviated by nothing, the patient symptoms are aggravated by any movement, bending, standing. Severity of symptoms: At their worst the symptoms were mild, in the emergency department the symptoms are unchanged. The patient has experienced similar episodes in the past, several times. Historical: - Allergies: 16:58 Demerol; aa5 16:58 GABAPENTIN; aa5 16:58 Valium; aa5 - Home Meds: 17:16 pantoprazole 40mg oral tablet, delayed release (enteric coated) [Active]; levothyroxine aa5 oral [Active]; amantadine HCl 100 mg Oral capsule [Active]; Aspirin 81mg Oral [Active]; Depakote 500 mg oral tablet, delayed release (enteric coated) [Active]; trazodone 50 mg oral tablet [Active]; escitalopram oxalate 10 mg oral tablet [Active]; risperidone oral [Active]; alendronate oral [Active]; Gemtesa 75 mg oral tablet [Active]; - PMHx: 16:58 Back pain; Bipolar disorder; GERD; Hypothyroidism; aa5 - PSHx: 16:58 hysterectomy; aa5 17:10 tubal ligation; herniated disc; spinal cord stimulator and removed 2012; Sx for aa5 prolapsed bladder, vagina, and rectum 2015; - Immunization history:: Adult Immunizations up to date. - Family history:: not pertinent. - Social history:: Smoking status: Patient denies any tobacco usage or history of. ROS: 17:21 Constitutional: Negative for fever, chills, and weight loss, Eyes: Negative for injury, james pain, redness, and discharge, ENT: Negative for injury, pain, and discharge, Neck: Negative for injury, pain, and swelling, Cardiovascular: Negative for chest pain, palpitations, and edema, Respiratory: Negative for shortness of breath, cough, wheezing, and pleuritic chest pain, Abdomen/GI: Negative for abdominal pain, nausea, vomiting, diarrhea, and constipation, : Negative for injury, bleeding, discharge, and swelling, MS/Extremity: Negative for injury and deformity, Skin: Negative for injury, rash, and discoloration, Neuro: Negative for headache, weakness, numbness, tingling, and seizure, Psych: Negative for depression, anxiety, suicide ideation, homicidal ideation, and hallucinations, Allergy/Immunology: Negative for hives, rash, and allergies, Endocrine: Negative for neck swelling, polydipsia, polyuria, polyphagia, and marked weight changes, Hematologic/Lymphatic: Negative for swollen nodes, abnormal bleeding, and unusual bruising, 17:21 Eyes: Positive for DILATED PUPILS, 17:21 Back: Positive for decreased range of motion, of the thoracic area and lumbar area, 19:58 : Negative for urinary symptoms, urinary frequency, small amounts, hematuria, pelvic james pain, flank pain, burning with urination, difficulty urinating, bladder incontinence, foul smelling urine, Exam: 17:23 Constitutional: This is a well developed, well nourished patient who is awake, alert, james and in no acute distress. Head/Face: Normocephalic, atraumatic. ENT: Nares patent. No nasal discharge, no septal abnormalities noted. Tympanic membranes are normal and external auditory canals are clear. Oropharynx with no redness, swelling, or masses, exudates, or evidence of obstruction, uvula midline. Mucous membranes moist. Neck: Trachea midline, no thyromegaly or masses palpated, and no cervical lymphadenopathy. Supple, full range of motion without nuchal rigidity, or vertebral point tenderness. No Meningismus. Chest/axilla: Normal chest wall appearance and motion. Nontender with no deformity. No lesions are appreciated. Cardiovascular: Regular rate and rhythm with a normal S1 and S2. No gallops, murmurs, or rubs. Normal PMI, no JVD. No pulse deficits. Respiratory: Lungs have equal breath sounds bilaterally, clear to auscultation and percussion. No rales, rhonchi or wheezes noted. No increased work of breathing, no retractions or nasal flaring. Abdomen/GI: Soft, non-tender, with normal bowel sounds. No distension or tympany. No guarding or rebound. No evidence of tenderness throughout. Back: No spinal tenderness. No costovertebral tenderness. Full range of motion. Female : Normal external genitalia. Skin: Warm, dry with normal turgor. Normal color with no rashes, no lesions, and no evidence of cellulitis. MS/ Extremity: Pulses equal, no cyanosis. Neurovascular intact. Full, normal range of motion. Neuro: Awake and alert, GCS 15, oriented to person, place, time, and situation. Cranial nerves II-XII grossly intact. Motor strength 5/5 in all extremities. Sensory grossly intact. Cerebellar exam normal. Normal gait. Psych: Awake, alert, with orientation to person, place and time. Behavior, mood, and affect are within normal limits. 17:23 Eyes: Pupils: dilated, bilaterally, 18:53 ECG was reviewed by the Attending Physician. [facility] Vital Signs: 16:50 BP 107 / 63; Pulse 67; Resp 16 S; Temp 97.5(TE); Pulse Ox 100% on R/A; aa5 17:20 BP 107 / 63; Pulse 64; Resp 24; Pulse Ox 100% on R/A; hb 18:53 BP 105 / 63; Pulse 57; Resp 16; Pulse Ox 100% on R/A; mb9 20:15 BP 119 / 91; Pulse 60; Resp 18; Pulse Ox 100% on R/A; km8 MDM: 17:02 Patient medically screened. [facility] 17:24 Differential diagnosis: chronic back pain, Fatigue Fracture Osteoarthritis ruptured james disc, spinal injury, sprain, Ureterolithiasis. Data reviewed: vital signs, nurses notes, EMS record, lab test result(s), EKG, radiologic studies, CT scan, doppler, plain films. Consideration of Admission/Observation Escalation of care including admission/observation considered. I considered the following discharge prescriptions or medication management in the emergency department Medications were administered in the Emergency Department. See MAR. Independent interpretation of the following test(s) in the Emergency Department EKG: See my EKG interpretation above. Test considered but Not performed: MRI: NO MRI BRAIN. Historians other than the Patient: PT WELL INFORMED. Care significantly affected by the following chronic conditions: BACK PAIN, BIPOLAR, HYPOTHYROID. Counseling: I had a detailed discussion with the patient and/or guardian regarding the historical points, exam findings, and any diagnostic results supporting the discharge/admit diagnosis, lab results, radiology results, the need for outpatient follow up, for definitive care, a family practitioner, a neurologist, a chest pain coordinator. 10/05 17:20 Order name: Basic Metabolic Panel; Complete Time: 19:13 james 10/05 17:20 Order name: CBC with Diff; Complete Time: 18:54 10/05 17:20 Order name: LFT's; Complete Time: 19:13 10/05 17:20 Order name: Magnesium; Complete Time: 19:13 10/05 17:20 Order name: NT PRO-BNP; Complete Time: 19:13 10/05 17:20 Order name: Troponin HS; Complete Time: 19:13 10/05 17:20 Order name: Depakote; Complete Time: 19:13 10/05 17:20 Order name: XRAY Chest (1 view); Complete Time: 18:54 10/05 17:20 Order name: CT Traumagram (Head C Spine CAP wo con); Complete Time: 18:54 10/05 17:20 Order name: US Carotid Artery Bilateral; Complete Time: 18:54 10/05 17:20 Order name: EKG; Complete Time: 17:21 10/05 17:20 Order name: Cardiac monitoring; Complete Time: 18:44 10/05 17:20 Order name: EKG - Nurse/Tech; Complete Time: 18:44 10/05 17:20 Order name: IV Saline Lock; Complete Time: 18:34 10/05 17:20 Order name: Labs collected and sent; Complete Time: 18:34 10/05 17:20 Order name: O2 Per Protocol; Complete Time: 18:44 10/05 17:20 Order name: O2 Sat Monitoring; Complete Time: 18:44 10/05 19:34 Order name: Misc. Order: GET UA; Complete Time: 20:23 james EC:53 Rate is 50 beats/min. Rhythm is regular. QRS [place] is Normal. MT interval is normal. QRS james interval is normal. QT interval is normal. No Q waves. T waves are Normal. No ST changes noted. Clinical impression: Sinus bradycardia. Interpreted by me. Reviewed by me. Administered Medications: 20:23 Not Given (Physician Discretion): ns 0.9% 500 ml IV at bolus continuous km8 Disposition Summary: 10/06/23 19:57 Discharge Ordered Notes: Location: Home james Problem: new james Symptoms: have improved james Condition: Stable james Diagnosis - Facial weakness james - Low back pain james - Other visual disturbances - SP DILATION EXAM james - Bipolar disorder, unspecified james Followup: james - With: Private Physician - When: 2 - 3 days - Reason: Recheck today's complaints, Continuance of care, Re-evaluation by your physician Followup: james - With: Maciel Gresham MD - When: 2 - 3 days - Reason: Recheck today's complaints, Re-evaluation by your physician Discharge Instructions: - Discharge Summary Sheet james - Acute Back Pain, Adult james - Chronic Back Pain james - Blurred Vision, Adult james - Visual Disturbances james - Aspirin and Your Heart james - Back Injury Prevention james - Supporting Someone With Bipolar Disorder james Forms: - Medication Reconciliation Form james - Thank You Letter james - Antibiotic Education james - Prescription Opioid Use james - Patient Portal Instructions james - Leadership Thank You Letter james Signatures: Dispatcher [employer] Mat Best MD MD cha Calderon, Audri, RN RN aa5 Tamiko Maldonado, RN RN Joi Valladares RN km8
--- NOTE | 2023-10-06 19:58 | ER ---
Nurse's Notes [facility] Name: Elyssa Olivo Age: 73 yrs Sex: Female : 1950 Arrival Date: 10/06/2023 Time: 16:45 Bed 5 Private MD: Diagnosis: Facial weakness;Low back pain;Other visual disturbances-SP DILATION EXAM;Bipolar disorder, unspecified Presentation: 10/05 16:50 Chief complaint: Chief complaint: EMS states: fell a few months ago and has had back aa5 pain since then. Pt also reports visual disturbances for approximately 2 weeks ago and was seen by eye doctor today. Pt also states "I've also been having tingling to my left leg but I think it's because I've been favoring my right leg after the fall". 16:50 Acuity: PRIMO 3 aa5 16:50 Method Of Arrival: EMS: [facility] aa5 16:50 Coronavirus screen: At this time, the client does not indicate any symptoms associated aa5 with coronavirus-19. 16:50 Ebola Screen: Patient denies travel to an Ebola-affected area in the 21 days before aa5 illness onset. Initial Sepsis Screen: Does the patient meet any 2 criteria? No. Patient's initial sepsis screen is negative. Does the patient have a suspected source of infection? No. Patient's initial sepsis screen is negative. Risk Assessment: Do you want to hurt yourself or someone else? Patient reports no desire to harm self or others. Onset of symptoms was 2023. Historical: - Allergies: 16:58 Demerol; aa5 16:58 GABAPENTIN; aa5 16:58 Valium; aa5 - Home Meds: 17:16 pantoprazole 40mg oral tablet, delayed release (enteric coated) [Active]; levothyroxine aa5 oral [Active]; amantadine HCl 100 mg Oral capsule [Active]; Aspirin 81mg Oral [Active]; Depakote 500 mg oral tablet, delayed release (enteric coated) [Active]; trazodone 50 mg oral tablet [Active]; escitalopram oxalate 10 mg oral tablet [Active]; risperidone oral [Active]; alendronate oral [Active]; Gemtesa 75 mg oral tablet [Active]; - PMHx: 16:58 Back pain; Bipolar disorder; GERD; Hypothyroidism; aa5 - PSHx: 16:58 hysterectomy; aa5 17:10 tubal ligation; herniated disc; spinal cord stimulator and removed 2012; Sx for aa5 prolapsed bladder, vagina, and rectum 2015; - Immunization history:: Adult Immunizations up to date. - Family history:: not pertinent. - Social history:: Smoking status: Patient denies any tobacco usage or history of. Screenin:59 [facility] ED Fall Risk Assessment (Adult) Score/Fall Risk Level 0 - 2 = Low Risk hb Oriented to surroundings, Maintained a safe environment, Educated pt \\T\\ family on fall prevention, incl call for assistance when getting out of bed. Abuse screen: Denies threats or abuse. Denies injuries from another. Nutritional screening: No deficits noted. Tuberculosis screening: No symptoms or risk factors identified. Assessment: 17:30 General: Appears in no apparent distress. Behavior is calm, cooperative. Pain: Pain hb currently is 5 out of 10 on a pain scale. Neuro: Level of Consciousness is awake, alert, obeys commands, Oriented to person, place, time, situation, Reports blurred vision. Cardiovascular: Patient's skin is warm and dry. Rhythm is regular. Respiratory: Respiratory effort is even, unlabored, Respiratory pattern is regular, symmetrical. GI: No signs and/or symptoms were reported involving the gastrointestinal system. : No signs and/or symptoms were reported regarding the genitourinary system. EENT: No signs and/or symptoms were reported regarding the EENT system. Derm: Skin is pink, warm \\T\\ dry. Musculoskeletal: Reports chronic back pain. 18:30 Reassessment: Patient appears in no apparent distress at this time. Patient and/or hb family updated on plan of care and expected duration. Pain level reassessed. Patient is alert, oriented x 3, equal unlabored respirations, skin warm/dry/pink. 20:21 Reassessment: patient reported no urinary symptoms such as pain, frequency, or tm6 discomfort. 20:24 Reassessment: Patient appears in no apparent distress at this time. Patient and/or km8 family updated on plan of care and expected duration. Pain level reassessed. Patient is alert, oriented x 3, equal unlabored respirations, skin warm/dry/pink. Patient states feeling better. Vital Signs: 16:50 BP 107 / 63; Pulse 67; Resp 16 S; Temp 97.5(TE); Pulse Ox 100% on R/A; aa5 17:20 BP 107 / 63; Pulse 64; Resp 24; Pulse Ox 100% on R/A; hb 18:53 BP 105 / 63; Pulse 57; Resp 16; Pulse Ox 100% on R/A; mb9 20:15 BP 119 / 91; Pulse 60; Resp 18; Pulse Ox 100% on R/A; km8 ED Course: 16:50 Patient arrived in ED. aa5 16:50 Arm band placed on Patient placed in an exam room, on a stretcher. aa5 17:02 Mat Menendez MD is Attending Physician. james 17:05 Triage completed. aa5 17:43 XRAY Chest (1 view) In Process Unspecified. EDMS 17:53 US Carotid Artery Bilateral In Process Unspecified. EDMS 18:17 CT Traumagram (Head C Spine CAP wo con) In Process Unspecified. EDMS 18:34 Basic Metabolic Panel Sent. bc6 18:34 CBC with Diff Sent. bc6 18:34 LFT's Sent. bc6 18:34 Magnesium Sent. bc6 18:34 NT PRO-BNP Sent. bc6 18:34 Troponin HS Sent. bc6 18:34 Initial lab(s) drawn, by ms, sent to lab. Inserted saline lock: 20 gauge in left bc6 antecubital area, using aseptic technique. Blood collected. 18:40 Patient has correct armband on for positive identification. Provided Education on: hb tests, result times. 18:40 Patient maintains SpO2 saturation greater than 95% on room air. hb 18:44 EKG done, by ED staff, reviewed by Mat Menendez MD. bc6 18:51 Tamiko Maldonado, RN is Primary Nurse. hb 20:05 Maciel Gersham MD is Referral Physician. james 20:24 No provider procedures requiring assistance completed. IV discontinued, intact, km8 bleeding controlled, No redness/swelling at site. Pressure dressing applied. Administered Medications: 20:23 Not Given (Physician Discretion): ns 0.9% 500 ml IV at bolus continuous km8 Medication: 18:30 VIS not applicable for this client. hb Outcome: 19:57 Discharge ordered by . james 20:24 Discharged to home via wheelchair, km8 20:24 Condition: good 20:24 Discharge instructions given to patient, Instructed on discharge instructions, follow up and referral plans. Demonstrated understanding of instructions, follow-up care, 20:25 Patient left the ED. km8 Signatures: Dispatcher [employer] Mat Best MD MD cha Calderon, Audri, RN RN aa5 Tamiko Maldonado, RN RN Simi Fields RN RN mb9 Awilda Pino [facility] Joi Valladares RN RN km8 Faby Gudino RN RN tm6 Corrections: (The following items were deleted from the chart) 16:58 16:57 Patient arrived in ED. aa5 aa5 17:05 16:50 Chief complaint: aa5 aa5
[2023-10-06 20:44] VITALS: BP 119/91; TEMP 97.5; O2SAT 100
--- NOTE | 2023-10-09 14:24 | EKG ---
Test Date: 2023-10-06 Test Time: 17:41:09 Hospital Social Worker: TOMAS MEASUREMENT RESULTS: Intervals: Rate: 50 AK: 158 QRSD: 108 QT: 458 QTc: 417 Carey: P: 38 AK: 158 QRS: 41 T: 43 INTERPRETIVE STATEMENTS: Sinus bradycardia Otherwise normal ECG Compared to ECG 04/28/2023 05:06:51 No significant changes Electronically Signed On 10-09-23 14:15:57 CDT by Brian Hawkins
== END ==
LOC: ER 16:45
DX: R29.810 Facial weakness (principal); M54.50 Low back pain, unspecified; H53.8 Other visual disturbances; F31.9 Bipolar disorder, unspecified; Z88.5 Allergy status to narcotic agent; Z88.8 Allergy status to other drugs, medicaments and biological substances
CPT/HCPCS: 93005; 85025; 80048; 36415; 83735; 80076; 80164; 84484; 83880; 70450; 71250; 72125; 71045; 93880; 99284; J7040

== ENCOUNTER 2024-02-29 11:22 | Emergency (ER) | payer OTHER ==
[2024-02-29] MEDS ORDERED: ONDANSETRON 4 MG/2 ML VIAL ONE (11:47)
[2024-02-29] MEDS ORDERED: FENTANYL CITR 100 MCG/2 ML ONE (11:47)
[2024-02-29] MEDS ORDERED: NA CHLORIDE 0.9% 1,000 ML ONE ×2 (11:47→14:00)
[2024-02-29 11:51] LABS: Absolute Basophils 0.1 K/uL (0-0.5); Absolute Eosinophils 0.2 K/uL (0-0.5); Absolute Lymphocytes (CBC) 1.6 K/uL (0.7-4.9); Absolute Monocytes 0.9 K/uL (0.1-1.3); Absolute Neutrophil 3.7 K/uL (1.8-8.0); Basophils % 0.8 % (0-1.3); Eosinophils % 3.1 % (0-4.4); Hematocrit 36.8 % (36.0-45.0); Lymphocytes % 25.3 % (15.3-44.8); MCH 30.1 pg (27.0-35.0); MCHC 32.6 g/dL (32.0-36.0); MCV 92.3 fL (80-100); MPV 10.8 fL (7.6-11.3); Monocytes % 13.7 % (3.3-12.3); Neutrophils % 57.1 % (41.7-73.7); Platelets 140 thou/uL (152-406); RBC Red Blood Cell Count 3.99 M/uL (3.86-4.86); Red Cell Distribution Width 13.8 % (12.1-15.2)
[2024-02-29 12:14] LABS: Albumin 3.7 g/dL (3.4-5.0); Albumin/Globulin Ratio 1.1 (1.1-1.8); Anion Gap 6.8 mEq/L (5.0-15.0); Bilirubin Total 0.5 mg/dL (0.2-1.0); Globulin 3.4 g/dL (2.3-3.5); Potassium 3.8 mEq/L (3.5-5.1); Protein, Total 7.1 g/dL (6.4-8.2)
--- NOTE | 2024-02-29 12:20 | RAD REPORT ---
EXAM DESCRIPTION: CT - Head C Spine Cap Libby Con - 02/29/2024 11:56 am CLINICAL HISTORY: Head and neck injury with chest and abdominal pain status post fall TECHNIQUE: Computed axial tomography of head, neck, chest, abdomen and pelvis obtained. IV and oral contrast not requested. Coronal and sagittal reconstruction performed. All CT scans are performed using dose optimization technique as appropriate and may include automated exposure control or mA/KV adjustment according to patient size. COMPARISON: September 2023 FINDINGS: An intracranial bleed is not seen. The ventricles are normal in caliber. An extra-axial fluid collection is not noted. Fluid within the sinuses/mastoids is not seen. A cervical fracture is not seen. No dislocation is noted. Mild anterior subluxation C2 on C3 unchanged. Mild posterior subluxation C4 on C5 unchanged. Postsurg ical changes lower cervical spine. Stable 6 millimeter lucency C2 The evaluation of mediastinum, lindsay, vessels, solid organs and bowel are limited secondary to the lac k of contrast administration. A mediastinal hematoma is not noted. A pleural effusion is not seen. A lung contusion is not present. Dilatation of the esophagus which is fluid-filled. Narrowing of the distal esophagus. The liver,spleen, pancreas, adrenals,kidneys and bladder do not demonstrate an acute traumatic injury Cholelithiasis. Air is present the gallbladder. Small amount of air is present within the liver. Duodenum diverticulum IMPRESSION: No acute intracranial abnormality is seen. A cervical fracture is not visualized. If the patient continues to have symptoms to suggest intracran ial/spinal cord pathology MRI be recommended No acute traumatic abnormality involving the chest, abdomen or pelvis Narrowing of the distal esophagus with dilatation of the remainder of the esophagus which is fluid-fi lled. Direct visualization is recommended Cholelithiasis. Air within the gallbladder could be secondary to infection or passage of a stone into the biliary tree. Small amount of air within the liver probably within the biliary tree rather than portal vein. This s hould be confirmed with ultrasound
[2024-02-29] MEDS ORDERED: BENZONATATE 100 MG CAP PO ONE (12:44)
[2024-02-29] MEDS ORDERED: HYDROCODONE/APAP 7.5/325 MG TAB ONE (12:45)
[2024-02-29 12:55] LABS: Transitional Epithelial <5 /HPF (None Seen); Urine Bacteria <20 /HPF (<20); Urine Bilirubin NEGATIVE (Negative); Urine Blood Negative (Negative); Urine Clarity Extremely Turbid (Clear); Urine Color Light-Yellow (Yellow); Urine Culture Reflex Order NOT NEEDED; Urine Glucose NEGATIVE (Negative); Urine Ketones NEGATIVE (Negative); Urine Microscopic Reflex YN ORDER UMIC; Urine Mucus Slight /HPF (None Seen); Urine Nitrite NEGATIVE (Negative); Urine Protein NEGATIVE (Negative); Urine RBC <5 /HPF (None Seen); Urine Urobilinogen Normal (Normal); Urine pH 7.5 (5.0-7.0)
[2024-02-29] MEDS ORDERED: PIPERACIL/TAZO 3.375 GM VIAL IV ONE (14:00)
[2024-02-29] MEDS ORDERED: NA CHLORIDE 0.9% 100 ML ONE (14:00)
[2024-02-29] MEDS ORDERED: FAMOTIDINE 20 MG/2 ML VIAL IV ONE (14:00)
--- NOTE | 2024-02-29 14:06 | ER ---
Nurse's Notes [facility] Name: Elyssa Olivo Age: 73 yrs Sex: Female : 1950 Arrival Date: 02/29/2024 Time: : Bed 4 Private MD: Diagnosis: Upper abdominal pain, unspecified;Fall (on) (from) other stairs and steps-CHAIR;Other cholelithiasis with obstruction-PNEUMOBILIA;Hypercalcemia;Gastro-esophageal reflux disease with esophagitis-DISTAL ESOPHAGEAL STRICTURE Presentation: 02/28 11:26 Chief complaint: EMS states: Slide down from chair and landed on her face. Complains of rs5 pain to lower back and upper lip. Care prior to arrival: None. 11:26 Acuity: PRIMO 3 rs5 11:26 Method Of Arrival: EMS: [facility] rs5 11:26 Coronavirus screen: At this time, the client does not indicate any symptoms associated rs5 with coronavirus-19. Ebola Screen: No symptoms or risks identified at this time. 11:26 Initial Sepsis Screen: Does the patient meet any 2 criteria? No. Patient's initial rs5 sepsis screen is negative. Does the patient have a suspected source of infection? No. Patient's initial sepsis screen is negative. Risk Assessment: Do you want to hurt yourself or someone else? Patient reports no desire to harm self or others. Onset of symptoms was February 29, 2024. Historical: - Allergies: 11:27 Demerol; rs5 11:27 GABAPENTIN; rs5 11:27 Valium; rs5 - PMHx: 11:27 Back pain; Bipolar disorder; GERD; Hypothyroidism; rs5 - PSHx: 11:27 herniated disc; hysterectomy; spinal cord stimulator and removed 2012; Sx for prolapsed rs5 bladder; Sx for prolapsed bladder; tubal ligation; - Immunization history: Last tetanus immunization: - up to date. - Infectious Disease History:: Denies. - Social history:: Smoking status: Patient denies any tobacco usage or history of. Screenin:30 [facility] ED Fall Risk Assessment (Adult) History of falling in the last 3 months, rs5 including since admission Yes- single mechanical fall (1 pt) Confusion or Disorientation No (0 pts) Intoxicated or Sedated No (0 pts) Impaired Gait Yes (1 pt) Mobility Assist Device Used Yes (1 pt) Altered Elimination No (0 pt) Score/Fall Risk Level 3 or more points = High Risk Oriented to surroundings, Maintained a safe environment, Hourly rounding (assess needs \\T\\ fall precautionary measures) done. Abuse screen: Denies threats or abuse. Nutritional screening: No deficits noted. Tuberculosis screening: No symptoms or risk factors identified. Assessment: 11:26 General: Appears in no apparent distress. uncomfortable, Behavior is calm, cooperative. rs5 Pain: Complains of pain in lower back Pain currently is 8 out of 10 on a pain scale. Quality of pain is described as aching, Is continuous. Neuro: Level of Consciousness is awake, alert, obeys commands, Oriented to person, place, time, situation. Cardiovascular: Patient's skin is warm and dry. Respiratory: Airway is patent Respiratory effort is even, unlabored, Respiratory pattern is regular, symmetrical. GI: Abdomen is round non-distended, Abd is soft and non tender X 4 quads. : No signs and/or symptoms were reported regarding the genitourinary system. EENT: Reports nasal congestion. Derm: Skin is intact, Skin is pink, warm \\T\\ dry. small bruise noted to upper lip. Musculoskeletal: Range of motion: intact in all extremities. 12:30 Reassessment: Patient and/or family updated on plan of care and expected duration. Pain rs5 level reassessed. Patient is alert, oriented x 3, equal unlabored respirations, skin warm/dry/pink. Patient states feeling better. Patient states symptoms have improved. 12:30 Respiratory: Reports cough that is. rs5 13:34 Reassessment: Patient and/or family updated on plan of care and expected duration. Pain rs5 level reassessed. Patient is alert, oriented x 3, equal unlabored respirations, skin warm/dry/pink. 14:41 Reassessment: No changes from previously documented assessment. rs5 15:51 Reassessment: Patient and/or family updated on plan of care and expected duration. Pain rs5 level reassessed. Patient is alert, oriented x 3, equal unlabored respirations, skin warm/dry/pink. Patient denies pain at this time. 16:10 Reassessment: 2x failed attempt to call report, charge nurse notified, no answer. rs5 Vital Signs: 11:27 BP 121 / 74; Pulse 70; Resp 17; Temp 97.8(O); Pulse Ox 98% ; rs5 12:00 BP 125 / 72; Pulse 58; Resp 16; Pulse Ox 99% on R/A; me1 13:00 BP 108 / 66; Pulse 57; Resp 16; Pulse Ox 100% ; me1 14:00 BP 121 / 80; Pulse 56; Resp 16; Pulse Ox 99% on R/A; me1 15:00 BP 118 / 98; Pulse 62; Resp 16; Pulse Ox 100% on R/A; me1 16:00 BP 110 / 79; Pulse 57; Resp 15; Pulse Ox 99% ; me1 17:00 BP 123 / 98; Pulse 50; Resp 16; Temp 98.4; Pulse Ox 100% ; me1 [place] Score: 13:58 Eye Response: spontaneous(4). Motor Response: obeys commands(6). Verbal Response: james oriented(5). Total: 15. ED Course: 11:25 Patient arrived in ED. rs5 11:27 Triage completed. rs5 11:28 Mat Menendez MD is Attending Physician. james 11:30 No provider procedures requiring assistance completed. rs5 11:30 Patient has correct armband on for positive identification. Placed in gown. Bed in low rs5 position. Call light in reach. Side rails up X2. 11:37 Raymundo Anthony, RN is Primary Nurse. rs5 11:58 CT Traumagram (Head C Spine CAP wo con) In Process Unspecified. EDMS 12:38 Urine collected: clean catch specimen, clear. cc6 12:39 Warm blanket given. cc6 13:37 1215 CM attempted assessment, patient on bedside commode. ane 13:54 1233 CM met with patient at bedside in ED exam room. Patient identified by name and ane . Demographic sheet states she lives alone in a senior community apartment complex, on the 2nd floor. She states the apartments have an elevator and she uses a rollator to get around. DME includes a cane. She states no HH, or home oxygen but states her son Kyler is setting up a caregiver service through "[employer]". Mrs. Olivo states she is not sure if she will return home, to Kyler's home upon discharge. CM will continue to follow and coordinate care. 13:54 1337 CM called Jennifer Olivo, patient's daughter in law at [phone], left voice ane mail. 14:02 Robert Mayen MD is Hospitalizing Provider. [facility] 14:16 1339 CM called son Kyler Olivo and updated him on tentative plan of care. Kyler anjali states he is traveling to [place], [place] from [place]. He will arrive at about 0330 tomorrow morning. (03/01/24) Both Kyler and CM have been attempting to coordinate transportation and help for Mrs. Oliov if and when she is discharged. Patient informed CM she has a friend named Dana who lives nearby and she is able to transport her home if she is discharged. Patient asked CM to speak with Dana and update her as needed. CM will follow and update family as plan of care develops. 1348 CM called 's friend Dana. Dana states she can transport her home and she is able to stay the night with her until Kyler arrives. 1414 CM spoke with Hospitalist Jordan Sanders, YAMILET, still pending further tests and evaluation. CM will continue to follow and coordinate care. 14:24 US Abdomen Limited In Process Unspecified. EDMS 14:51 Thyroid Stimulating Hormone Sent. me1 14:51 PTH-Related Protein Sent. me1 14:51 Vitamin D, 25 (OH), TOTAL Sent. me1 14:51 Vitamin D,1,25 Dihydroxy Sent. me1 14:51 T4 Free Sent. me1 14:51 Ionized Calcium Sent. me1 14:51 PTH Intact Sent. me1 15:56 Cholangiogram In Process Unspecified. EDMS 16:[address] Menendez, pt accepted in transfer to [facility] by dr Benz bd admin approval given by Liv Bergeron,pt going to [id number]. 16:50 pt to be transported by ems. bd 17:08 CM spoke to Kyler, Mrs. Olivo's son via telephone \\T\\ [phone], to update him on ane tentative plan of care. CM provided contact information for ED. Kyler verbalized understanding. 03/01 09:15 Safety Checks:. ane Administered Medications: 02/28 11:40 Drug: Tessalon Perle PO 100 mg PO once Route: PO; rs5 14:57 Follow up: Response: No adverse reaction me1 11:45 Drug: NS 0.9% IV 1000 ml IV at 1 bolus Per protocol; 1000 mL bolus Route: IV; Rate: 1 rs5 bolus; Site: right antecubital; 17:27 Follow up: Response: No adverse reaction; IV Status: Completed infusion; IV Intake: me1 1000ml 11:50 Drug: Hydrocodone-Acetaminophen PO (7.5 mg-325 mg) 1 tabs PO once Route: PO; rs5 14:57 Follow up: Response: No adverse reaction; Pain is decreased me1 13:03 Not Given (Patient Refused): fentanyl (pf)50 mcg IVP once rs5 13:03 Not Given (Patient Refused): ondansetron 4 mg IVP once; over 2 minutes rs5 14:51 Drug: Famotidine IVP 20 mg IVP once; dilute with 10 mL 0.9% NaCl; give over 2 minutes me1 Route: IVP; Site: right antecubital; 14:58 Follow up: Response: No adverse reaction me1 14:51 Drug: NS 0.9% IV 1000 ml IV at 1 bolus Per protocol; 1000 mL bolus Route: IV; Rate: 1 me1 bolus; Site: right antecubital; 17:27 Follow up: Response: No adverse reaction; IV Status: Completed infusion; IV Intake: me1 1000ml 14:51 Drug: Piperacillin-Tazobactam IVPB 3.375 grams IVPB once over 60 mins; (mix in NS 100 me1 mL) Route: IVPB; Infused Over: 60 mins; Site: right antecubital; 15:21 Follow up: Response: No adverse reaction; IV Status: Completed infusion me1 Medication: 13:37 VIS not applicable for this client. rs5 Intake: 17:27 IV: 1000ml; Total: 1000ml. me1 17:27 IV: 1000ml; Total: 2000ml. me1 Outcome: 14:06 Decision to Hospitalize by Provider. james 15:08 ER care complete, transfer ordered by . james 17:59 Patient left the ED. iw Signatures: Dispatcher [employer] EDGina Pastor Corey, MD MD cha Williams, Irene, RN RN Raymundo Anthony RN RN 5 Jessenia Gutierrez RN RN me1 Davida Beasley RN RN cc6 Mireille Cespedes RN RN ane Corrections: (The following items were deleted from the chart) 13:37 12:20 Hydrocodone-Acetaminophen PO (7.5 mg-325 mg) 1 tabs PO rs5 rs5 13:37 12:20 Tessalon Perle PO 100 mg PO rs5 rs5 13:37 11:26 EENT: No signs and/or symptoms were reported regarding the EENT system. rs5 rs5 15:58 13:37 1215 CM attempted assessment, patient on bedside commode. anjali alba : 13:54 1233 CM met with patient at bedside in ED exam room. Patient identified by name anjali and . Demographic sheet states she lives alone in a senior community apartment complex, on the 2nd floor. She states the apartments have an elevator and she uses a rollator to get around. DME includes a cane. She states no HH, or home oxygen but states her son Kyler is setting up a caregiver service through "[employer]". Mrs. Olivo states she is not sure if she will return home, to Kyler's home upon discharge. CM will continue to follow and coordinate care. anjali 13:54 1337 CM called Jennifer Olivo, patient's daughter in law at [phone], left anjali voice mail. anjali 14:16 1339 CM called luis Olivo and updated him on tentative plan of care. anjali Chávez states he is traveling to [place], [place] from [place]. He will arrive at about 0330 tomorrow morning. (03/01/24) Both Kyler and DMITRIY have been attempting to coordinate transportation and help for Mrs. Olivo if and when she is discharged. Patient informed CM she has a friend named Dana who lives nearby and she is able to transport her home if she is discharged. CM will follow and update family as plan of care develops. 1348 CM called 's friend Dana. Dana states she can transport her home and she is able to stay the night with her until Kyler arrives. 1414 CM spoke with Hospitalist Jordan Sanders NP, still pending further tests and evaluation. CM will continue to follow and coordinate care. anjali 16: 16:10 Reassessment: 2x failed attempt to call report, charge nurse notified, no answer. rs5 rs5 16:26 13:54 1233 CM met with patient at bedside in ED exam room. Patient identified by name anjali and . Demographic sheet states she lives alone in a senior community apartment complex, on the 2nd floor. She states the apartments have an elevator and she uses a rollator to get around. DME includes a cane. She states no HH, or home oxygen but states her son Kyler is setting up a caregiver service through "[employer]". Mrs. Olivo states she is not sure if she will return home, to Kyler's home upon discharge. CM will continue to follow and coordinate care. anjali 14:16 1339 CM called son Kyler Olivo and updated him on tentative plan of care. anjali Chávez states he is traveling to [place], [place] from [place]. He will arrive at about 0330 tomorrow morning. (03/01/24) Both Kyler and DMITRIY have been attempting to coordinate transportation and help for Mrs. Olivo if and when she is discharged. Patient informed CM she has a friend named Dana who lives nearby and she is able to transport her home if she is discharged. CM will follow and update family as plan of care develops. 1348 CM called 's friend Dana. Dana states she can transport her home and she is able to stay the night with her until Kyler arrives. 1414 CM spoke with Hospitalist Jordan Sanders NP, still pending further tests and evaluation. CM will continue to follow and coordinate care. anjali 03/01 09:10 0815 17:08 CM spoke to Kyler, Mrs. Olivo's son via telephone \\T\\ [phone], to anjali update him on tentative plan of care. CM provided contact information for ED. Kyler verbalized understanding. anjali
--- NOTE | 2024-02-29 14:07 | EDPHYS ---
Physician Documentation [facility] Name: Elyssa Olivo Age: 73 yrs Sex: Female : 1950 Arrival Date: 02/29/2024 Time: 11:22 Bed 4 Private MD: ED Physician Mat Menendez HPI: 02/28 13:56 This 73 yrs old Female presents to ER via EMS with complaints of Fall Injury. james 13:56 Details of fall: The patient fell from seated position, out of a chair. Onset: The james symptoms/episode began/occurred just prior to arrival. Associated injuries: The patient sustained injury to the head, injury to the chest, injury to the abdomen. Severity of symptoms: At their worst the symptoms were mild, in the emergency department the symptoms are unchanged. The patient has not experienced similar symptoms in the past. Historical: - Allergies: 11:27 Demerol; rs5 11:27 GABAPENTIN; rs5 11:27 Valium; rs5 - PMHx: 11:27 Back pain; Bipolar disorder; GERD; Hypothyroidism; rs5 - PSHx: 11:27 herniated disc; hysterectomy; spinal cord stimulator and removed 2012; Sx for prolapsed rs5 bladder; Sx for prolapsed bladder; tubal ligation; - Immunization history: Last tetanus immunization: - up to date. - Infectious Disease History:: Denies. - Social history:: Smoking status: Patient denies any tobacco usage or history of. ROS: 13:56 Constitutional: Negative for fever, chills, and weight loss, Eyes: Negative for injury, james pain, redness, and discharge, ENT: Negative for injury, pain, and discharge, Neck: Negative for injury, pain, and swelling, Cardiovascular: Negative for chest pain, palpitations, and edema, Respiratory: Negative for shortness of breath, cough, wheezing, and pleuritic chest pain, Back: Negative for injury and pain, : Negative for injury, bleeding, discharge, and swelling, MS/Extremity: Negative for injury and deformity, Skin: Negative for injury, rash, and discoloration, Psych: Negative for depression, anxiety, suicide ideation, homicidal ideation, and hallucinations, Allergy/Immunology: Negative for hives, rash, and allergies, Endocrine: Negative for neck swelling, polydipsia, polyuria, polyphagia, and marked weight changes, Hematologic/Lymphatic: Negative for swollen nodes, abnormal bleeding, and unusual bruising, 13:56 Abdomen/GI: Positive for abdominal pain, abdominal cramps, 13:56 Neuro: Positive for weakness, tremor, Exam: 13:56 Constitutional: This is a well developed, well nourished patient who is awake, alert, james and in no acute distress. Head/Face: Normocephalic, atraumatic. Eyes: Pupils equal round and reactive to light, extra-ocular motions intact. Lids and lashes normal. Conjunctiva and sclera are non-icteric and not injected. Cornea within normal limits. Periorbital areas with no swelling, redness, or edema. ENT: Nares patent. No nasal discharge, no septal abnormalities noted. Tympanic membranes are normal and external auditory canals are clear. Oropharynx with no redness, swelling, or masses, exudates, or evidence of obstruction, uvula midline. Mucous membranes moist. Neck: Trachea midline, no thyromegaly or masses palpated, and no cervical lymphadenopathy. Supple, full range of motion without nuchal rigidity, or vertebral point tenderness. No Meningismus. Chest/axilla: Normal chest wall appearance and motion. Nontender with no deformity. No lesions are appreciated. Cardiovascular: Regular rate and rhythm with a normal S1 and S2. No gallops, murmurs, or rubs. Normal PMI, no JVD. No pulse deficits. Respiratory: Lungs have equal breath sounds bilaterally, clear to auscultation and percussion. No rales, rhonchi or wheezes noted. No increased work of breathing, no retractions or nasal flaring. Back: No spinal tenderness. No costovertebral tenderness. Full range of motion. Female : Normal external genitalia. Skin: Warm, dry with normal turgor. Normal color with no rashes, no lesions, and no evidence of cellulitis. MS/ Extremity: Pulses equal, no cyanosis. Neurovascular intact. Full, normal range of motion. Neuro: Awake and alert, GCS 15, oriented to person, place, time, and situation. Cranial nerves II-XII grossly intact. Motor strength 5/5 in all extremities. Sensory grossly intact. Cerebellar exam normal. Normal gait. Psych: Awake, alert, with orientation to person, place and time. Behavior, mood, and affect are within normal limits. 13:56 Abdomen/GI: Inspection: abdomen appears normal, Bowel sounds: normal, Palpation: mild abdominal tenderness, in the epigastric area, right upper quadrant and left upper quadrant, Liver: no appreciated palpable abnormalities, Hernia: not appreciated, 15:11 ECG was reviewed by the Attending Physician. [facility] Vital Signs: 11:27 BP 121 / 74; Pulse 70; Resp 17; Temp 97.8(O); Pulse Ox 98% ; rs5 12:00 BP 125 / 72; Pulse 58; Resp 16; Pulse Ox 99% on R/A; me1 13:00 BP 108 / 66; Pulse 57; Resp 16; Pulse Ox 100% ; me1 14:00 BP 121 / 80; Pulse 56; Resp 16; Pulse Ox 99% on R/A; me1 15:00 BP 118 / 98; Pulse 62; Resp 16; Pulse Ox 100% on R/A; me1 16:00 BP 110 / 79; Pulse 57; Resp 15; Pulse Ox 99% ; me1 17:00 BP 123 / 98; Pulse 50; Resp 16; Temp 98.4; Pulse Ox 100% ; me1 Skylar Coma Score: 13:58 Eye Response: spontaneous(4). Motor Response: obeys commands(6). Verbal Response: james oriented(5). Total: 15. MDM: 11:28 Patient medically screened. james 13:58 Differential diagnosis: Contusion of Hematoma on Intracranial bleed- Concussion without james LOC. cerebral contusion, appendicitis, bowel obstruction, coronary artery disease, cholecystitis, Cholelithiasis, diverticulitis, gastritis, gastroesophageal reflux disease, GI Bleed. Data reviewed: vital signs, nurses notes, lab test result(s), EKG, radiologic studies, CT scan. Consideration of Admission/Observation Patient was admitted/placed on observation. Escalation of care including admission/observation considered. I considered the following discharge prescriptions or medication management in the emergency department Medications were administered in the Emergency Department. See MAR. Independent interpretation of the following test(s) in the Emergency Department EKG: See my EKG interpretation above. Test considered but Not performed: X-ray: no cxr. 02/28 11:35 Order name: CBC with Diff; Complete Time: 13:34 [facility] 02/28 11:35 Order name: Comprehensive Metabolic Panel; Complete Time: 13:34 [facility] 02/28 11:35 Order name: Urinalysis w/ reflexes; Complete Time: 13:34 [facility] 02/28 13:49 Order name: Lipase; Complete Time: 15:14 [facility] 02/28 14:09 Order name: Ionized Calcium EDHI 02/28 14:09 Order name: PTH Intact EDMS 02/28 14:09 Order name: PTH-Related Protein EDMS 02/28 14:09 Order name: Vitamin D, 25 (OH), TOTAL EDMS 02/28 14:09 Order name: Vitamin D,1,25 Dihydroxy EDMS 02/28 14:09 Order name: T4 Free; Complete Time: 16:25 EDMS 02/28 14:09 Order name: Thyroid Stimulating Hormone; Complete Time: 16:25 EDHI 02/28 11:35 Order name: CT Traumagram (Head C Spine CAP wo con); Complete Time: 13:34 [facility] 02/28 13:49 Order name: US Abdomen Limited; Complete Time: 14:37 [facility] 02/28 13:59 Order name: Cholangiogram; Complete Time: 16:25 EDHI 02/28 14:00 Order name: EKG; Complete Time: 14:00 [facility] 02/28 11:49 Order name: Ice pack; Complete Time: 13:03 [facility] 02/28 14:00 Order name: EKG - Nurse/Tech; Complete Time: 15:55 [facility] 02/28 15:31 Order name: Labs - recollect needed: collect 1 gold 1 green 2 tiger tops; Complete bd Time: 17:28 02/28 15:33 Order name: Labs - recollect needed: and a blue; Complete Time: 17:28 bd EC:11 Rate is 59 beats/min. Rhythm is regular. QRS [place] is Normal. OK interval is normal. QRS james interval is normal. QT interval is normal. No Q waves. T waves are Normal. No ST changes noted. Clinical impression: Sinus bradycardia and No evidence of ischemia. Interpreted by me. Reviewed by me. Administered Medications: 11:40 Drug: Tessalon Perle PO 100 mg PO once Route: PO; rs5 14:57 Follow up: Response: No adverse reaction me1 11:45 Drug: NS 0.9% IV 1000 ml IV at 1 bolus Per protocol; 1000 mL bolus Route: IV; Rate: 1 rs5 bolus; Site: right antecubital; 17:27 Follow up: Response: No adverse reaction; IV Status: Completed infusion; IV Intake: me1 1000ml 11:50 Drug: Hydrocodone-Acetaminophen PO (7.5 mg-325 mg) 1 tabs PO once Route: PO; rs5 14:57 Follow up: Response: No adverse reaction; Pain is decreased me1 13:03 Not Given (Patient Refused): fentanyl (pf)50 mcg IVP once rs5 13:03 Not Given (Patient Refused): ondansetron 4 mg IVP once; over 2 minutes rs5 14:51 Drug: Famotidine IVP 20 mg IVP once; dilute with 10 mL 0.9% NaCl; give over 2 minutes me1 Route: IVP; Site: right antecubital; 14:58 Follow up: Response: No adverse reaction me1 14:51 Drug: NS 0.9% IV 1000 ml IV at 1 bolus Per protocol; 1000 mL bolus Route: IV; Rate: 1 me1 bolus; Site: right antecubital; 17:27 Follow up: Response: No adverse reaction; IV Status: Completed infusion; IV Intake: me1 1000ml 14:51 Drug: Piperacillin-Tazobactam IVPB 3.375 grams IVPB once over 60 mins; (mix in NS 100 me1 mL) Route: IVPB; Infused Over: 60 mins; Site: right antecubital; 15:21 Follow up: Response: No adverse reaction; IV Status: Completed infusion me1 Disposition Summary: 02/29/24 15:08 Transfer Ordered Notes: Transfer Location: [facility] james Reason: Higher level of care james Condition: Fair(02/29/24 15:08) james Problem: new(02/29/24 15:08) james Symptoms: have improved(02/29/24 15:08) james Accepting Physician: TO [facility](02/29/24 17:59) iw Diagnosis - Upper abdominal pain, unspecified james - Fall (on) (from) other stairs and steps - CHAIR(02/29/24 15:08) james - Other cholelithiasis with obstruction - PNEUMOBILIA james - Hypercalcemia(02/29/24 15:10) james - Gastro-esophageal reflux disease with esophagitis - DISTAL ESOPHAGEAL STRICTURE james Forms: - Medication Reconciliation Form james - SBAR form james Signatures: Dispatcher [employer] EDMS Gina Zepeda Corey, MD MD cha Williams, Irene, RN RN iw Jordan Sanders, ELEVATOR PILOT-C ELEVATOR PILOT-Cla1 Raymundo Anthony, RN RN rs5 Jessenia Gutierrez, LORENZA RN me1 Corrections: (The following items were deleted from the chart) 11:35 11:35 CBC+H.LAB.BRZ ordered. EDMS EDMS 11:35 11:35 COMPREHENSIVE METABOLIC PANEL+C.LAB.BRZ ordered. EDMS EDMS 11:35 11:35 Urinalysis+U.LAB.BRZ ordered. EDMS EDMS 11:35 11:35 Head C Spine Cap Wo Con+CT.RAD.BRZ ordered. EDMS EDMS 15:03 14:06 Inpatient Admission james james 15:03 14:06 Robert Mayen james james 15:03 14:06 Telemetry/MedSurg (Inpatient) james james 15:03 14:06 Fair james james 15:03 14:06 new james james 15:03 14:06 have improved james james 15:03 14:06 Standard james james 15:03 14:06 james james 15:03 14:06 Fall (on) (from) other stairs and steps - chair, table james james 15:03 14:06 Contusion of unspecified part of head - lip/chin james james 15:03 14:06 Epigastric abdominal tenderness james james 15:03 14:06 Other cholelithiasis without obstruction james james 15:03 14:06 Hypercalcemia james james 15:10 15:08 TO [facility] james james 15:20 15:10 TO [facility] james james 17:59 15:20 TO [facility] james iw
--- NOTE | 2024-02-29 14:27 | RAD REPORT ---
EXAM DESCRIPTION: US - Abdomen Exam Limited - 02/29/2024 2:22 pm CLINICAL HISTORY: ABD PAIN COMPARISON: No comparisons FINDINGS: The gallbladder demonstrates multiple stones. No pericholecystic fluid or gallbladder wall thickening. The common bile duct is normal measuring 6 mm. The liver demonstrates no findings of intrahepatic biliary dilatation. IMPRESSION: Cholelithiasis.
[2024-02-29 15:22] LABS: Thyroid Stimulating Hormone 1.4 uIU/mL (0.358-3.740)
--- NOTE | 2024-02-29 15:34 | P.CNS ---
Date of Consult: 02/29/24 Reason for Consult: ER consult Requesting Physician: Mat Menendez Chief Complaint: Fall injury History of Present Illness: 73-year-old female presents emergency department after a fall from her chair with complaints of pain in lower back and upper lip. She was evaluated in the emergency department and had a CT head/C-spine/chest abdomen pelvis to evaluate for injuries as well as labs. Her labs were significant for severe hyp ercalcemia with a calcium of 14.5, her LFTs and T. bili were normal as well as lipase CBC was significant for mild thrombocytopenia with a platelet count of 140. On CT scan patient was found to have pneumobilia, cholelithiasis, narrowing of the distal esophagus with dilatation of the remainder of esophagus which is fluid-filled. Subsequent abdominal ultrasound was performed which showed cholelithiasis, case was discussed with radiology who stated that air is not well-seen on abdominal ultrasound but visible on the CT scan, there would be concern for an eroding stone causing a fistulous track allowing for pneumobilia. Case was discussed with on-call general surgery who recommends patient be evaluated with ERCP. Given that ERCP is not available in our hospital currently transfer was init iated to a hospital capable performing ERCP to further evaluate pneumobilia, cholelithiasis. Allergies meperidine HCl [From Demerol] Adverse Reaction (Verified 09/17/11 12:14) Sleepiness Home Medications: ARIPiprazole [Abilify*] 5 mg PO DAILY 01/06/17 Aspirin [Aspir-Low] 81 mg PO DAILY 01/06/17 Dexlansoprazole [Dexilant] 60 mg PO DAILY 01/06/17 Escitalopram [Lexapro*] 20 mg PO DAILY 01/06/17 [place] Carbonate [Lithotabs *] 600 mg PO BEDTIME 01/06/17 Trazodone [Desyrel*] 50 mg PO BEDTIME 01/06/17 Aspirin [Aspirin EC] 81 mg PO DAILY #30 tablet. 01/07/17 Levothyroxine [Synthroid*] 0.075 mg PO [id number] #30 tab 01/07/17 Pantoprazole Sodium [Protonix] 40 mg PO DAILY #30 tablet. 01/07/17 - Past Medical/Surgical History Diabetic: No -: TIA, AGE 25 -: GERD -: BIPOLAR -: PROLAPSED UTERUS, BLADDER, RECTUM -: HYPOTHYROIDISM -: TUBAL LIGATION -: HYSTERECTOMY - Family History Mother Medical History: Heart disease, Hypertension, Cancer Notes: RECTAL CANCER Father Medical History: Heart disease - Social History Alcohol use: No CD- Drugs: No Caffeine use: No Place of Residence: Home Review of Systems 10-point ROS is otherwise unremarkable ENT: Other (Facial pain/upper lip pain) Gastrointestinal: Abdominal Pain Musculoskeletal: Back Pain Physical Examination General: Alert, In no apparent distress, Oriented x3 HEENT: Atraumatic, PERRLA, Other (Bruising to upper lip), EOMI Neck: Supple, 2+ carotid pulse no bruit Respiratory: Clear to auscultation bilaterally, Normal air movement Cardiovascular: Regular rate/rhythm, Normal S1 S2 Gastrointestinal: Normal bowel sounds, Tenderness (Mild generalized abdominal tenderness) Musculoskeletal: No tenderness Integumentary: No rashes Neurological: Normal gait, Normal speech, Normal tone Laboratory Data (last 24 hrs) 02/29/24 02/29/24 02/29/24 14:48 11:42 11:42 WBC 6.50 Hgb 12.0 Hct 36.8 Plt Count 140 L Sodium 141 Potassium 3.8 BUN 20 H Creatinine 1.19 H Glucose 114 H Total Bilirubin 0.5 AST 23 ALT 31 Alkaline Phosphatase 65 Lipase 23 Conclusions/Impression: 73-year-old female presents emergency department after a fall from her chair with complaints of pain in lower back and upper lip. She was evaluated in the emergency department and had a CT head/C-spine/chest abdomen pelvis to evaluate for injuries as well as labs. Her labs were significant for severe hypercalcemia with a calcium of 14.5, her LFTs and T. bili were normal as well as lipase CBC was significant for mild thrombocytopenia with a platelet count of 140. On CT scan patient was found to have pneumobilia, cholelithiasis, narrowing of the distal esophagus with dilatation of the remainder of esophagus which is fluid-filled. Subsequent abdominal ultrasound was performed which showed cholelithiasis, case was discussed with radiology who stated that air is not well-seen on abdominal ultrasound but visible on the CT scan, there would be concern for an eroding stone causing a fistulous track allowing for pneumobilia. Case was discussed with on-call general surgery who recommends patient be evaluated with ERCP. Given that ERCP is not available in our hospital currently transfer was initiated to a hospital capable performing ERCP to further evaluate pneumobilia, cholelithiasis. Assessment Pneumobilia, cholelithiasis Severe hypercalcemia Fall injury, acute back pain GERD/esophageal narrowing Thrombocytopenia Bipolar disorder Critical Care: No Time Spent Managing Pts care (In Minutes): 45
--- NOTE | 2024-02-29 16:04 | RAD REPORT ---
EXAM DESCRIPTION: MRI - Cholangiogram - 02/29/2024 3:55 pm CLINICAL HISTORY: pain Abdominal pain COMPARISON: No comparisons FINDINGS: Three-dimensional MRCP was performed using maximum intensity projection reconstruction on the same work station. No intrahepatic biliary tree dilatation is seen. The common bile duct is normal caliber without evide nce of retained stone, stricture or mass. The pancreatic duct is not pathologically dilated. Cholelithiasis. Limited T2 sequences through the abdomen demonstrates no bulky adenopathy, significant free fluid or abscess. Prominent 3 cm duodenal diverticulum on the transverse duodenum seen. IMPRESSION: Cholelithiasis without pathologic biliary tree finding. 3 cm transverse duodenal diverticulum suspected.
[2024-02-29 18:18] VITALS: BP 123/98; TEMP 98.4; O2SAT 100
[2024-03-04 12:16] LABS: Ionized Calcium 6.8 mg/dL (4.7-5.5)
--- NOTE | 2024-03-05 18:03 | EKG ---
Test Date: 2024-02-29 Test Time: 15:04:01 Antique Repairer: CAYDEN MEASUREMENT RESULTS: Intervals: Rate: 59 ND: 148 QRSD: 102 QT: 444 QTc: 439 [place]: P: 90 ND: 148 QRS: 71 T: 67 INTERPRETIVE STATEMENTS: Sinus bradycardia Otherwise normal ECG Compared to ECG 10/06/2023 17:41:09 No significant changes Electronically Signed On 03-05-24 17:52:22 CDT by Zafar Major
[2024-03-07 14:31] LABS: 1,25 Dihydroxy Vitamin D3 43 pg/mL; Vitamin D 1,25-Dihydroxy Total 43 pg/mL (18-72); Vitamin D,1,25-OH2, D2 <8 pg/mL
== END 2024-02-29 17:59 | disposition short-term general hospital (02) ==
LOC: ER 11:22
DX: M54.9 Dorsalgia, unspecified (principal); R10.10 Upper abdominal pain, unspecified; W07.XXXA Fall from chair, initial encounter; K80.21 Calculus of gallbladder without cholecystitis with obstruction; K22.2 Esophageal obstruction; K21.00 Gastro-esophageal reflux disease with esophagitis, without bleeding; E83.52 Hypercalcemia; D69.6 Thrombocytopenia, unspecified; I10 Essential (primary) hypertension; F31.9 Bipolar disorder, unspecified; E03.9 Hypothyroidism, unspecified; Z79.899 Other long term (current) drug therapy; Z88.5 Allergy status to narcotic agent; Z88.8 Allergy status to other drugs, medicaments and biological substances; Z86.73 Personal history of transient ischemic attack (TIA), and cerebral infarction without residual deficits; Z82.49 Family history of ischemic heart disease and other diseases of the circulatory system
CPT/HCPCS: 96365; 96361; 93005; 85025; 81001; 36415; 82652; 84443; 84439; 83690; 83970; 80053; 82306; 82330; 70450; 71250; 72125; 74181; 76705; 96375; 99284; 83519; J2543; J7030; J2405; J3010

== ENCOUNTER 2024-11-25 11:37 | Emergency (ER) | payer OTHER ==
[2024-11-25 12:24] LABS: Absolute Eosinophils 0.1 K/uL (0-0.5); Absolute Lymphocytes (CBC) 2.3 K/uL (0.7-4.9); Absolute Monocytes 0.9 K/uL (0.1-1.3); Absolute Neutrophil 3.3 K/uL (1.8-8.0); Basophils % 0.6 % (0-1.3); Eosinophils % 1.3 % (0-4.4); Hematocrit 38.4 % (36.0-45.0); Hemoglobin 12.8 g/dL (12.0-15.0); Lymphocytes % 33.9 % (15.3-44.8); MCH 30.3 pg (27.0-35.0); MCHC 33.3 g/dL (32.0-36.0); MCV 90.9 fL (80-100); Monocytes % 13.8 % (3.3-12.3); Neutrophils % 50.4 % (41.7-73.7); Nucleated Red Blood Cells % 0.1 % (0-0); Platelets 142 thou/uL (152-406); RBC Red Blood Cell Count 4.22 M/uL (3.86-4.86); Red Cell Distribution Width 12.9 % (12.1-15.2)
--- NOTE | 2024-11-25 12:27 | RAD REPORT ---
EXAMINATION: CT LUMBAR SPINE WITHOUT CONTRAST CLINICAL INDICATION: Female, 74 years old. fall from be TECHNIQUE: Axial CT images were obtained through the lumbar spine in soft tissue and bone windows wit hout intravenous contrast. Coronal and Sagittal reformatted images were created from the data set. One or more of the following dose reduction techniques were used: Automated exposure control, adjustm ent of the mA and/ or kV according to patient size, and/or iterative reconstruction. Unless otherwise specified, incidental findings do not require dedicated imaging follow-up. COMPARISON: No prior exam. FINDINGS: For purposes of this dictation, it is assumed that there are 5 non rib-bearing lumbar type vertebrae, and the most caudal fully segmented lumbar vertebra is labeled L5. ALIGNMENT: The lumbar spine demonstrates normal alignment without spondylolisthesis or significant woody bluxation. Levoconvex scoliotic deformity with apex at L3. BONES: Vertebral body heights are preserved. No aggressive osseous lesions. Multilevel degenerative c hanges of the endplates and facet articulations, with moderate to advanced disc height loss at L2-3, L3-4, and to lesser extent L4-5. Disc bulges also present most notably at the upper 2 levels, c ontributing to moderate degrees of neural foraminal narrowing on the right. DISCS: Intervertebral disc space heights are maintained. LEVELS: No significant spinal canal or neural foraminal stenosis. No visualized abnormality within th e spinal canal. SOFT TISSUE: No soft tissue abnormalities. Incidentally noted cholelithiasis. IMPRESSION: No acute lumbar spine abnormalities. Degenerative changes as above.
[2024-11-25 12:37] LABS: Albumin/Globulin Ratio 0.9 (1.1-1.8); Anion Gap 7.7 mEq/L (5.0-15.0); Bilirubin Total 0.3 mg/dL (0.2-1.0); Globulin 3.5 g/dL (2.3-3.5); Potassium 3.7 mEq/L (3.5-5.1); Protein, Total 6.5 g/dL (6.4-8.2)
--- NOTE | 2024-11-25 13:18 | EDPHYS ---
Physician Documentation [facility] Name: Elyssa Olivo Age: 74 yrs Sex: Female : 1950 Arrival Date: 11/25/2024 Time: 11:37 Bed 18 Private MD: ED Physician Damon Dorado HPI: 11/25 11:43 This 74 yrs old Female presents to ER via Unassigned with complaints of fall, back pain.ms3 11:43 74-year-old female presents the emergency department via [facility] after ms3 slipping out of bed at 3:15 AM. Patient states she has chronic lower back pain that is continued to hurt. EMS administered 925 mg Tylenol. Patient states after she slid out of bed she remained on the floor since 3:15 AM and was unable to get up. Patient denies hitting her head or loss of consciousness. Patient states she slid from the bed onto the floor.. Historical: - Allergies: 11:45 Demerol; ld1 11:45 GABAPENTIN; ld1 11:45 Valium; ld1 - Home Meds: 11:45 levothyroxine oral [Active]; ld1 - PMHx: 11:45 Bipolar disorder; Back pain; GERD; Hypothyroidism; ld1 - PSHx: 11:45 hysterectomy; spinal cord stimulator and removed 2012; Sx for prolapsed bladder; ld1 herniated disc; Sx for prolapsed bladder; tubal ligation; - Immunization history:: Adult Immunizations up to date. - Infectious Disease History:: Denies. - Social history:: Smoking status: Patient denies any tobacco usage or history of. ROS: 11:43 Constitutional: Negative for fever, and chills. Cardiovascular: Negative for chest ms3 pain, and palpitations. Respiratory: Negative for shortness of breath, cough, wheezing, and pleuritic chest pain, Abdomen/GI: Negative for abdominal pain, nausea, vomiting, diarrhea, and constipation, Skin: Negative for injury, rash, and discoloration, 11:43 MS/extremity: Positive for pain, tenderness, of the lumbar, Exam: 13:19 Constitutional: This is a well developed, well nourished patient who is awake, alert, ms3 and in no acute distress. Cardiovascular: Regular rate and rhythm with a normal S1 and S2. No gallops, murmurs, or rubs. Normal PMI, no JVD. No pulse deficits. Respiratory: Lungs have equal breath sounds bilaterally, clear to auscultation and percussion. No rales, rhonchi or wheezes noted. No increased work of breathing, no retractions or nasal flaring. Abdomen/GI: Soft, non-tender, with normal bowel sounds. No distension or tympany. No guarding or rebound. No evidence of tenderness throughout. Skin: Warm, dry with normal turgor. Normal color with no rashes, no lesions, and no evidence of cellulitis. MS/ Extremity: Pulses equal, no cyanosis. Neurovascular intact. Full, normal range of motion. Vital Signs: 11:47 Pulse 59; Resp 18; Temp 97.2(TE); Pulse Ox 97% on R/A; Weight 62.14 kg; Height 5 ft. 4 ld1 in. ; Pain 7/10; 11:49 BP 113 / 49; ld1 13:12 BP 103 / 68; Pulse 68; Resp 18; Pulse Ox 99% on R/A; ld1 13:33 BP 102 / 88; Pulse 63; Resp 18; Pulse Ox 100% on R/A; km10 14:13 BP 102 / 88; Pulse 64; Resp 18; Pulse Ox 99% on R/A; ld1 11:47 Body Mass Index 23.52 (62.14 kg, 162.56 cm) ld1 11:47 Pain Scale: Adult ld1 [place] Coma Score: 13:33 Eye Response: spontaneous(4). Motor Response: obeys commands(6). Verbal Response: km10 oriented(5). Total: 15. MDM: 11:42 Medical Screening Exam initiated ms3 13:18 Differential diagnosis: spinal injury, vertebral fracture, muscle spasm vs Rhabdo. Data ms3 reviewed: vital signs, nurses notes, lab test result(s), radiologic studies, CT scan, and as a result, I will discharge patient. Historians other than the Patient: EMS: . Counseling: I had a detailed discussion with the patient and/or guardian regarding the historical points, exam findings, and any diagnostic results supporting the discharge/admit diagnosis, lab results, radiology results, the need for outpatient follow up, to return to the emergency department if symptoms worsen or persist or if there are any questions or concerns that arise at home. Special discussion: I discussed with the patient/guardian in detail that at this point there is no indication for admission to the hospital. It is understood, however, that if the symptoms persist or worsen the patient needs to return immediately for re-evaluation. ED course: Discussed labs and imaging with patient. Patient to follow-up with primary care physician 2 to 3 days. Patient understands agrees to plan. All questions were answered. Return precautions discussed include worsening symptoms, or any other concerns.. 11/25 11:43 Order name: CBC with Diff; Complete Time: 13:02 ms3 11/25 11:43 Order name: CMP; Complete Time: 13: ms3 11/25 11:43 Order name: CK; Complete Time: 13: ms3 11/25 11:43 Order name: CT Lumbar Spine Wo Con; Complete Time: 13: ms3 Administered Medications: No medications were administered Disposition Summary: 11/25/24 13:18 Discharge Ordered Notes: Location: Home ms3 Condition: Stable ms3 Diagnosis - Low back pain ms3 - Fall from bed, initial encounter ms3 Followup: ms3 - With: Jose F Green DO - When: 2 - 3 days - Reason: Re-evaluation by your physician Discharge Instructions: - Discharge Summary Sheet ms3 - Acute Back Pain, Adult ms3 - Fall Prevention in the Home, Adult ms3 Forms: - Medication Reconciliation Form ms3 - Antibiotic Education ms3 - Prescription Opioid Use ms3 - Patient Portal Instructions ms3 - Leadership Thank You Letter ms3 Signatures: Dispatcher [employer] EDOH Damon Dorado DO DO ms3 Marisel Dorado RN RN ld1 Corrections: (The following items were deleted from the chart) 11:46 11:45 PSHx: Sx for prolapsed bladder, vagina, and rectum 2015; ld1 ld1
--- NOTE | 2024-11-25 13:18 | ER ---
Nurse's Notes [facility] Name: Elyssa Olivo Age: 74 yrs Sex: Female : 1950 Arrival Date: 11/25/2024 Time: 11:37 Bed 18 Private MD: Diagnosis: Low back pain;Fall from bed, initial encounter Presentation: 11/25 11:44 Chief complaint: EMS states: toned out to [facility]or for low back pain. Pt reports ld1 slipping out of chair last night - sat on floor, unable to get self off of floor. Denies hitting head. Not on blood thinners. C/O lower back pain. Coronavirus screen: At this time, the client does not indicate any symptoms associated with coronavirus-19. Ebola Screen: No symptoms or risks identified at this time. Risk Assessment: Do you want to hurt yourself or someone else? Patient reports no desire to harm self or others. Onset of symptoms was November 25, 2024. 11:44 Method Of Arrival: EMS: [facility] ld1 11:44 Acuity: PRIMO 3 ld1 15:53 Initial Sepsis Screen: Does the patient meet any 2 criteria? No. Patient's initial ld1 sepsis screen is negative. Does the patient have a suspected source of infection? No. Patient's initial sepsis screen is negative. Triage Assessment: 11:45 General: Appears in no apparent distress. comfortable, Behavior is calm, cooperative, ld1 appropriate for age. Pain: Complains of pain in low back area and sacrum Pain does not radiate. Pain currently is 8 out of 10 on a pain scale. Quality of pain is described as throbbing, Pain began suddenly, Is continuous. EENT: No signs and/or symptoms were reported regarding the EENT system. Neuro: Level of Consciousness is awake, alert, obeys commands, Oriented to person, place, time, situation. Cardiovascular: Capillary refill < 3 seconds Patient's skin is warm and dry. Respiratory: Airway is patent Respiratory effort is even, unlabored. GI: Abdomen is flat, non-distended. : No signs and/or symptoms were reported regarding the genitourinary system. Derm: No signs and/or symptoms reported regarding the dermatologic system. Musculoskeletal: No signs and/or symptoms reported regarding the musculoskeletal system. Historical: - Allergies: 11:45 Demerol; ld1 11:45 GABAPENTIN; ld1 11:45 Valium; ld1 - Home Meds: 11:45 levothyroxine oral [Active]; ld1 - PMHx: 11:45 Bipolar disorder; Back pain; GERD; Hypothyroidism; ld1 - PSHx: 11:45 hysterectomy; spinal cord stimulator and removed 2012; Sx for prolapsed bladder; ld1 herniated disc; Sx for prolapsed bladder; tubal ligation; - Immunization history:: Adult Immunizations up to date. - Infectious Disease History:: Denies. - Social history:: Smoking status: Patient denies any tobacco usage or history of. Screenin:49 [facility] ED Fall Risk Assessment (Adult) History of falling in the last 3 months, ld1 including since admission Yes- single mechanical fall (1 pt) Confusion or Disorientation No (0 pts) Intoxicated or Sedated No (0 pts) Impaired Gait Yes (1 pt) Mobility Assist Device Used Yes (1 pt) Altered Elimination No (0 pt) Score/Fall Risk Level 3 or more points = High Risk Oriented to surroundings, Hourly rounding (assess needs \T\ fall precautionary measures) done. Abuse screen: Denies threats or abuse. Denies injuries from another. Nutritional screening: No deficits noted. Tuberculosis screening: No symptoms or risk factors identified. Assessment: 11:49 Reassessment: See triage assessment. ld1 13:39 General: PTS SON IN ROUTE. ETA 1.5HRS. cm10 14:13 Reassessment: Patient appears in no apparent distress at this time. No changes from ld1 previously documented assessment. Patient and/or family updated on plan of care and expected duration. Pain level reassessed. Pt son called at this time - On the way to apple picking supervisor patient. ETA 1.5 hours. Pt unable to go to lobby due to fall risk. Vital Signs: 11:47 Pulse 59; Resp 18; Temp 97.2(TE); Pulse Ox 97% on R/A; Weight 62.14 kg; Height 5 ft. 4 ld1 in. ; Pain 7/10; 11:49 BP 113 / 49; ld1 13:12 BP 103 / 68; Pulse 68; Resp 18; Pulse Ox 99% on R/A; ld1 13:33 BP 102 / 88; Pulse 63; Resp 18; Pulse Ox 100% on R/A; km10 14:13 BP 102 / 88; Pulse 64; Resp 18; Pulse Ox 99% on R/A; ld1 11:47 Body Mass Index 23.52 (62.14 kg, 162.56 cm) ld1 11:47 Pain Scale: Adult ld1 [place] Coma Score: 13:33 Eye Response: spontaneous(4). Motor Response: obeys commands(6). Verbal Response: km10 oriented(5). Total: 15. ED Course: 11:41 Patient arrived in ED. ms3 11:42 Damon Dorado DO is Attending Physician. ms3 11:43 Marisel Dorado, LORENZA is Primary Nurse. ld1 11:45 Triage completed. ld1 11:45 Arm band placed on right wrist. ld1 11:49 Patient has correct armband on for positive identification. Placed in gown. Bed in low ld1 position. Call light in reach. Side rails up X2. Pulse ox on. NIBP on. Door closed. Noise minimized. Warm blanket given. 11:49 No provider procedures requiring assistance completed. Maintain EMS IV. Dressing ld1 intact. Good blood return noted. Site clean \T\ dry. Gauge \T\ site: 20G RH. 11:58 CT Lumbar Spine Wo Con In Process Unspecified. EDMS 13:17 Jose F Green DO is Referral Physician. ms3 15:53 IV discontinued, intact, bleeding controlled, No redness/swelling at site. ld1 Administered Medications: No medications were administered Medication: 11:49 VIS not applicable for this client. ld1 Outcome: 13:18 Discharge ordered by . ms3 15:52 Discharged to home via wheelchair, with family, ld1 15:52 Condition: stable 15:52 Discharge instructions given to patient, family, Instructed on discharge instructions, follow up and referral plans. Demonstrated understanding of instructions, follow-up care, 15:53 Patient left the ED. ld1 Signatures: Dispatcher [employer] EDMS Damon Dorado DO DO ms3 Marisel Dorado, RN RN ld1 Sybil Raymond RN RN cm10 Liz Morrow RN RN km10 Corrections: (The following items were deleted from the chart) 11:46 11:45 PSHx: Sx for prolapsed bladder, vagina, and rectum 2015; ld1 ld1
[2024-11-25 16:02] VITALS: TEMP 97.2
[2024-11-25 16:10] VITALS: BP 102/88
[2024-11-25 16:11] VITALS: O2SAT 99
== END 2024-11-25 15:53 | disposition home or self-care (01) ==
LOC: ER 11:37
DX: M54.50 Low back pain, unspecified (principal); W06.XXXA Fall from bed, initial encounter
CPT/HCPCS: 36415; 72131; 80053; 82550; 85025; 99283